=== PATIENT | female | born 1935 | race Caucasian/White ===

== ENCOUNTER → 2018-05-04 16:48 | Outpatient (CLI) | payer MEDICARE, OTHER, SELFPAY ==
[2018-05-04 17:46] LABS: Add Manual Diff / Slide Review NO; Basophils Percent Auto 0.9 % (0-2); Eosinophils Percent Auto 2.2 % (2-4); Hematocrit 30.4 % (36-46); Hemoglobin 10.1 g/dL (12.0-16.0); Lymphocytes Percent Auto 33.6 % (25-40); Mean Corpuscular HGB Conc 33.3 % (30-36); Mean Corpuscular Hemoglobin 29.3 PG (26-34); Mean Corpuscular Volume 88.2 fL (80-100); Monocytes Percent Auto 11.1 % (3-14); Neutrophils Absolute Auto 2300 /uL (3000-5900); Neutrophils Percent Auto 52.2 % (50-75); Platelet Count 169 X10^3/uL (150-400); Red Blood Cell Count 3.44 X10^6/uL (4.0-5.2); Red Cell Distribution Width 14.2 % (11.6-14.8); White Blood Cell Count 4.4 X10^3/uL (4.5-11.0)
[2018-05-04 18:01] LABS: Alanine Aminotransferase 42 IU/L (9-52); Albumin 3.9 g/dL (3.5-5.0); Albumin Globulin Ratio 1.3 (1.0-2.8); Alkaline Phosphatase 44 U/L (38-126); Aspartate Aminotransferase 44 IU/L (14-36); BUN Creatinine Ratio 29.3 (6-22); Bilirubin Total 0.6 mg/dL (0.2-1.3); Blood Urea Nitrogen 44 mg/dL (7-17); Calcium 9.3 mg/dL (8.4-10.2); Carbon Dioxide 24 mmol/L (22-32); Chloride 105 mmol/L (98-107); Estimated Glomerular Filt Rate 33.2 mL/min (>60); Globulin 2.9 g/dL (1.7-4.1); Glucose 108 mg/dL (80-110); HEMOLYSIS < 15 (0-50); Potassium 4.6 mmol/L (3.4-5.1); Sodium 143 mmol/L (137-145); Total Protein 6.8 g/dL (6.3-8.2)
[2018-05-04 18:31] LABS: Thyroid Stimulating Hormone 2.47 uIU/mL (0.47-4.68)
[2018-05-09 08:28] LABS: ANA Screen NEGATIVE (Negative); DNA Antibody Crithidia IFA NEGATIVE (Negative); Rheumatoid Factor <14 IU/mL; Sjogren Antiboday SS-A <1.0 NEG AI (<1.0 NEGATIVE); Sjogren Antiboday SS-B <1.0 NEG AI (<1.0 NEGATIVE); Sm Antibody <1.0 NEG AI (<1.0 NEGATIVE); Sm/RNP Antibody <1.0 NEG AI (<1.0 NEGATIVE)
== END ==
PROVIDERS: PCP Family Medicine; Visit Provider Student in an Organized Health Care Education/Training Program
DX: N05.9 Unspecified nephritic syndrome with unspecified morphologic changes (principal); D63.1 Anemia in chronic kidney disease; E78.2 Mixed hyperlipidemia; I10 Essential (primary) hypertension; N18.3 Chronic kidney disease, stage 3 (moderate)
CPT/HCPCS: 36415; 80053; 84443; 85025; 86038; 86430

== ENCOUNTER → 2018-05-08 11:21 | Outpatient (CLI) | payer MEDICARE, OTHER, SELFPAY ==
[2018-05-08 12:40] LABS: Cholesterol 122 mg/dL (140-199); HDL Cholesterol 49 mg/dL (40-60); LDL Cholesterol Calculated 58 mg/dL (<100); Triglycerides 76 mg/dL (35-150)
== END ==
PROVIDERS: PCP Family Medicine; Visit Provider Family Medicine
DX: D63.1 Anemia in chronic kidney disease (principal); N18.3 Chronic kidney disease, stage 3 (moderate); I10 Essential (primary) hypertension; E78.2 Mixed hyperlipidemia
CPT/HCPCS: 36415; 80061

== ENCOUNTER → 2018-05-15 16:06 | Outpatient (CLI) | payer MEDICARE, OTHER, SELFPAY ==
--- NOTE | 2018-05-15 | DI.RAD.S_ITS ---
PROCEDURE: XR RIBS RT 2V INDICATIONS: RIGHT RIB PAIN TECHNIQUE: 2 views of the right ribs were acquired. COMPARISON: [facility], CHEST 2 VIEW, 11/19/2013, 13:06. [facility], CHEST 1 VIEW, 04/26/2015, 3:58. FINDINGS: Surgical changes and devices: None. Bones and chest wall: No fractures or dislocations. No suspicious bony lesions. Overlying soft tissues appear unremarkable. Note is made of moderate degenerative disc disease with osteophytic spurring along the middle third of the thoracic spine. No subluxation is found. No compression fracture is seen. The visualized rib margins appear free of traumatic disruption or osteolytic/osteoblastic change. Lungs and pleura: The visualized lung appears clear. No pleural effusions or pneumothorax are visible. IMPRESSION: Source of current right-sided rib pain is not seen. Depending on the clinical status followup by a nuclear medicine bone scan may become necessary. Dictated by: Maykel Jones M.D. on 05/15/2018 at 17:09 Approved by: Maykel Jones M.D. on 05/15/2018 at 17:11
--- NOTE | 2018-05-15 16:09 | DI.RAD.S_ITS ---
PROCEDURE: XR THORACIC SPINE 3V INDICATIONS: Thoracic pain, R Rib pain TECHNIQUE: 3 views of the thoracic spine were acquired. COMPARISON: [facility], MR, T-SPINE W&WO CONTRAST, 04/27/2016, 18:14. [facility], CR, CHEST 2 VIEW, 11/19/2013, 13:06. [facility], CR, CHEST 1 VIEW, 04/26/2015, 3:58. FINDINGS: Bones: No fractures or dislocations. No suspicious bony lesions. 12 pairs of ribs are noted, and appear intact where visualized. Moderate degenerative mid thoracic disc disease with anterior osteophyte formation is present, similar to that previously present. No subluxation has developed. Soft tissues: No paravertebral stripe thickening. IMPRESSION: No trauma found. Moderate midthoracic degenerative disc disease previously present with reference to prior MR of the thoracic spine and chest plain film imaging. Dictated by: Maykel Jones M.D. on 05/15/2018 at 17:01 Approved by: Maykel Jones M.D. on 05/15/2018 at 17:09
== END ==
PROVIDERS: PCP Family Medicine; Visit Provider Family Medicine
DX: M51.34 Other intervertebral disc degeneration, thoracic region (principal); R07.81 Pleurodynia
CPT/HCPCS: 71100; 72072

== ENCOUNTER → 2018-06-22 14:54 | Outpatient (CLI) | payer MEDICARE, OTHER, SELFPAY ==
[2018-06-22 15:20] LABS: Hematocrit 29.4 % (36-46)
[2018-06-22 16:10] LABS: TSH w/ Reflex to FT4 1.56 uIU/mL (0.47-4.68)
[2018-06-22 16:23] LABS: Vitamin D 25 Hydroxy (D3) 41.6 ng/mL (30.0-100.0)
[2018-06-22 16:29] LABS: Vitamin B12 736 pg/mL (239-931)
== END ==
PROVIDERS: PCP Family Medicine
DX: D64.9 Anemia, unspecified (principal); E55.9 Vitamin D deficiency, unspecified
CPT/HCPCS: 36415; 82306; 82607; 84443; 85014; 85018

== ENCOUNTER → 2018-06-29 14:29 | Outpatient (CLI) | payer MEDICARE, OTHER, SELFPAY ==
[2018-06-29 15:19] LABS: Reticulocyte Count, Percent 1.2 % (1.06-2.63)
[2018-06-29 16:02] LABS: HEMOLYSIS < 15 (0-50); Iron 64 ug/dL (37-170)
[2018-06-29 16:13] LABS: Percent Iron Saturation 20 % (15-50); Total Iron Binding Capacity 327 ug/dL (265-497); Transferrin 265 mg/dL (206-381)
[2018-07-01 14:05] LABS: Erythropoietin 9.7 mIU/mL (2.6-18.5)
[2018-07-01 19:15] LABS: Albumin 3.9 g/dL (3.8-4.8); Alpha 1 Globulin 0.3 g/dL (0.2-0.3); Alpha 2 Globulin 0.5 g/dL (0.5-0.9); Beta 1 Globulin 0.4 g/dL (0.4-0.6); Gamma Globulin 1.2 g/dL (0.8-1.7); Protein, Total 6.6 g/dL (6.1-8.1)
[2018-07-04 23:21] LABS: Albumin 80 %; Protein/ Creatinine Ratio 139 mg/g creat (21-161); Total Urine Protein 16 mg/dL (5-24); Urine Creatinine, Random 115 mg/dL (20-320)
== END ==
PROVIDERS: PCP Family Medicine
DX: N18.9 Chronic kidney disease, unspecified (principal); D63.1 Anemia in chronic kidney disease
CPT/HCPCS: 36415; 82668; 82728; 83540; 83550; 84155; 84156; 84165; 84166; 85045; 86335

== ENCOUNTER → 2018-07-19 14:14 | Outpatient (CLI) | payer MEDICARE, OTHER, SELFPAY ==
[2018-07-19 15:06] LABS: Add Manual Diff / Slide Review NO; Hematocrit 29.5 % (36-46); Hemoglobin 9.9 g/dL (12.0-16.0); Lymphocytes Percent Auto 32.9 % (25-40); Mean Corpuscular HGB Conc 33.6 % (30-36); Mean Corpuscular Hemoglobin 29.7 PG (26-34); Mean Corpuscular Volume 88.3 fL (80-100); Monocytes Percent Auto 12.2 % (3-14); Neutrophils Absolute Auto 2000 /uL (3000-5900); Neutrophils Percent Auto 51.9 % (50-75); Platelet Count 187 X10^3/uL (150-400); Red Blood Cell Count 3.34 X10^6/uL (4.0-5.2); Red Cell Distribution Width 15.3 % (11.6-14.8); White Blood Cell Count 3.9 X10^3/uL (4.5-11.0)
== END ==
PROVIDERS: PCP Family Medicine
DX: N18.9 Chronic kidney disease, unspecified (principal); D63.1 Anemia in chronic kidney disease
CPT/HCPCS: 36415; 85025

== ENCOUNTER 2018-07-26 11:12 | Outpatient (CLI) | payer MEDICARE, OTHER, SELFPAY ==
[2018-07-26] VITALS (8 sets, daily range): BP systolic 136–203; BP diastolic 59–91; PULSE 61–65; RESP 10–19; TEMP 36.8; O2SAT 99–100
--- NOTE | 2018-07-26 11:14 | DI.RAD.S_ITS ---
PROCEDURE: PAIN C/T INTERLAMINAR INJECT INDICATIONS: PAIN IN THORACIC SPINE FINDINGS: Fluoroscopic spot filming was performed to verify placement of spinal needles at the T8-T9 paramedian interlaminar level(s), as labeled on the films. Appropriate location(s) of the needle tip(s) was confirmed by injection of iodinated contrast. IMPRESSION: Successful needle tip localization within the dorsal epidural space for epidural steroid injection. Dictated by: Maykel Jones M.D. on 07/26/2018 at 14:09 Approved by: Maykel Jones M.D. on 07/26/2018 at 14:09
--- NOTE | 2018-07-26 11:32 | PM.PROC.1 ---
Procedures Date/Time Date of procedure: 07/26/18 Time of procedure: 11:32 General Procedure description: Preop diagnosis: Thoracic stenosis with HNP Postprocedure diagnosis: Thoracic stenosis with HNP Physician: Lex Malone D.O. Indications: Margaux is referred by Dr. Herrera for treatment of thoracic DDD/DJD with radiculopathy Description of procedure: Fluoroscopic guided, contrast controlled T8-9 translaminar epidural steroid injection with conscious sedation. Following denial of allergy review potential side effects and complications, including, but not necessarily limited to, infection, allergic reaction, local tissue breakdown, temporary as well as permanent nerve injury, stroke, paralysis and possible , the patient indicated that they understood and agreed to proceed. An informed consent document was signed by the patient, witnessed by the nurse, and placed in the patient's chart. Additionally other treatment options including modalities, medications and physical therapy were reviewed with the patient. After review of previous anaesthesic history and IV conscious sedation the patient was deemed safe to proceed with todays procedure with IV conscious sedation as ASA class II designation. Safety time-out was performed to confirm patient ID, procedure to be performed and site of procedure. IV sedation was accomplished with a combination of 3mg of Versed administered by the RN after DO order, titrated to patient comfort during the course of the procedure while the patient remained responsive to all verbal commands In the prone position, following sterile prep and drape of the thoracic region the T8-9 translaminar space was identified fluoroscopically. The skin was anesthetized via 25 gauge 20 mm sheath with 1% lidocaine solution. At this point a 20 gauge epidural needle was atraumatically introduced and advanced under fluoroscopic guidance into the region of the T8-9 translaminar space depth was confirmed on lateral view. Radiographic data, including multiple fluoroscopic views of the thoracic spine, reveals spinal needle at the T8-9 translaminar space. Lateral views then showed the placement of the needle in the epidural space. Subsequent view show contrast material flowing superiorly and inferiorly in the epidural space. No vascular or intrathecal uptake is observed. At this point using loss of resistance technique with saline and the epidural space was entered. This was confirmed followed negative aspiration and injection of approximately 1.5 cc of Isovue 200 showed excellent epidural flow without vascular or intrathecal uptake. At this point, 1 cc of 1% lidocaine solution was admitted as a test dose and the patient was observed for an appropriate period of time without signs or symptoms of complications, including abdominal pain, shortness of breath, bilateral upper and lower extremity weakness, nausea and vomiting, prior to steroid injection. Subsequently, 3 cc or 30 mg of dexamethasone was then injected without incident. The patient tolerated the procedure well without signs of complications and subsequently was transferred to the recovery room for further monitoring. The patient was then transferred to the recovery area with their observed for an appropriate time after the injection. Patient reported a VAS score of 7 prior to the procedure and postprocedure VAS of 2. Total fluoroscopy time: 56.3 sec Total conscious sedation time: 24 min Lex Malone D.O. Complications: none
[2018-07-26] MEDS: DEXAMETHASONE 10 MG/ML VIAL 30 MG INJ (12:06)
[2018-07-26] MEDS: MIDAZOLAM 5 MG/5 ML VIAL IV (12:06)
[2018-07-26] MEDS: IOPAMIDOL 15 ML VIAL 3 ML INJ (12:06)
[2018-07-26] MEDS: LIDOCAINE 1% 20 ML INJ 5 ML INJ (12:07)
== END 2018-07-26 13:05 | disposition home or self-care (01) ==
LOC: RAD 11:13
PROVIDERS: PCP Family Medicine; Visit Provider Physical Medicine & Rehabilitation
DX: M51.14 Intervertebral disc disorders with radiculopathy, thoracic region (principal); M47.24 Other spondylosis with radiculopathy, thoracic region; M48.04 Spinal stenosis, thoracic region; G89.29 Other chronic pain
CPT/HCPCS: 62321; 99152; J1100; J2250

== ENCOUNTER → 2018-08-11 16:04 | Outpatient (CLI) | payer MEDICARE, OTHER, SELFPAY ==
[2018-08-11 17:19] LABS: Hemoglobin 10.6 g/dL (12.0-16.0)
[2018-08-11 17:53] LABS: HEMOLYSIS < 15 (0-50); Iron 79 ug/dL (37-170)
[2018-08-11 17:54] LABS: Blood Urea Nitrogen 36 mg/dL (7-17); Calcium 9.2 mg/dL (8.4-10.2); Carbon Dioxide 26 mmol/L (22-32); Chloride 106 mmol/L (98-107); Estimated Glomerular Filt Rate 26.9 mL/min (>60); Glucose 83 mg/dL (80-110); HEMOLYSIS < 15 (0-50); Sodium 143 mmol/L (137-145)
[2018-08-11 18:04] LABS: Percent Iron Saturation 24 % (15-50); Total Iron Binding Capacity 330 ug/dL (265-497); Transferrin 269 mg/dL (206-381)
[2018-08-11 18:45] LABS: Creatinine Urine Random 140.3 mg/dL; Protein (Total) Urine Random 26 mg/dL (0-12); Protein Creatinine Ratio Urine 0.18 GRAM/24H
[2018-08-15 15:18] LABS: Parathyroid Hormone Int 113 pg/mL (14-64)
== END ==
PROVIDERS: PCP Family Medicine; Visit Provider Student in an Organized Health Care Education/Training Program
DX: N05.9 Unspecified nephritic syndrome with unspecified morphologic changes (principal); D50.0 Iron deficiency anemia secondary to blood loss (chronic); D64.9 Anemia, unspecified; N25.81 Secondary hyperparathyroidism of renal origin; R80.9 Proteinuria, unspecified
CPT/HCPCS: 36415; 80048; 82570; 82728; 83540; 83550; 83970; 84156; 85014; 85018

== ENCOUNTER → 2018-08-16 14:10 | Outpatient (CLI) | payer MEDICARE, OTHER, SELFPAY ==
[2018-08-16 14:22] LABS: Add Manual Diff / Slide Review NO; Eosinophils Percent Auto 1.8 % (2-4); Hematocrit 29.4 % (36-46); Lymphocytes Percent Auto 33.8 % (25-40); Mean Corpuscular HGB Conc 33.8 % (30-36); Mean Corpuscular Hemoglobin 29.7 PG (26-34); Mean Corpuscular Volume 87.7 fL (80-100); Monocytes Percent Auto 12.4 % (3-14); Neutrophils Absolute Auto 2000 /uL (3000-5900); Platelet Count 176 X10^3/uL (150-400); Red Blood Cell Count 3.35 X10^6/uL (4.0-5.2); Red Cell Distribution Width 14.7 % (11.6-14.8); White Blood Cell Count 3.9 X10^3/uL (4.5-11.0)
--- NOTE | 2018-08-16 15:27 | PC.NURSE ---
Pt here for lab draw due to anemia. Current labs are stable at this time, next draw is 09/13 for an 09/20 provider visit
== END ==
PROVIDERS: PCP Family Medicine
DX: N18.3 Chronic kidney disease, stage 3 (moderate) (principal); D63.1 Anemia in chronic kidney disease
CPT/HCPCS: 36415; 85025

== ENCOUNTER → 2018-08-31 18:35 | Outpatient (CLI) | payer MEDICARE, OTHER, SELFPAY ==
--- NOTE | 2018-08-31 18:37 | DI.MRI.S_ITS ---
PROCEDURE: MR THORACIC SPINE WO CON INDICATIONS: THORACIC BACK PAIN TECHNIQUE: Noncontrast sagittal T1 spine echo and T2 fast spin echo, sagittal STIR, axial T1 and T2 fast spin echo through the thoracic spine. COMPARISON: [facility], MR, L-SPINE WITHOUT CONTRAST, 03/25/2016, 9:07. [facility], MR, T-SPINE W&WO CONTRAST, 04/27/2016, 18:14. FINDINGS: Image quality: Excellent. Alignment and Curvature: There is normal bony alignment. Bone Marrow: Marrow is of normal overall signal. No acute vertebral body compression fractures. Spinal Cord: Visualized spinal cord is normal in size. As previously identified, there is increased T2 signal within the distal aspect of the visualized cord without interval change. Paraspinous Soft Tissues: No paravertebral masses. Lobulated T2 hyperintensities are present along the superior right renal pole, unchanged likely office services representative of cysts. Miscellaneous: On axial images, foramina appear widely patent at all scanned levels. Multilevel disc desiccation is present throughout the thoracic spine. Minimal disc bulges are present at T6-7, T7-8, T8-9 and, T9-10, T10-11, T12-L1. Minimal interval progression. IMPRESSION: 1. Minimal degenerative changes with slight interval progression as above. 2. 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 Dictated by: Angela Evangelista M.D. on 09/01/2018 at 13:30 Approved by: Angela Evangelista M.D. on 09/01/2018 at 14:39
== END ==
PROVIDERS: PCP Family Medicine; Visit Provider Physical Medicine & Rehabilitation
DX: M54.6 Pain in thoracic spine (principal); G89.29 Other chronic pain; M47.24 Other spondylosis with radiculopathy, thoracic region
CPT/HCPCS: 72146

== ENCOUNTER → 2018-09-14 15:29 | Outpatient (CLI) | payer MEDICARE, OTHER, SELFPAY ==
[2018-09-14 15:48] LABS: Add Manual Diff / Slide Review NO; Basophils Percent Auto 0.5 % (0-2); Eosinophils Percent Auto 1.7 % (2-4); Hemoglobin 9.6 g/dL (12.0-16.0); Lymphocytes Percent Auto 31.3 % (25-40); Mean Corpuscular HGB Conc 33.1 % (30-36); Mean Corpuscular Hemoglobin 29.4 PG (26-34); Mean Corpuscular Volume 88.7 fL (80-100); Monocytes Percent Auto 11.4 % (3-14); Neutrophils Absolute Auto 2400 /uL (3000-5900); Neutrophils Percent Auto 55.1 % (50-75); Platelet Count 179 X10^3/uL (150-400); Red Blood Cell Count 3.28 X10^6/uL (4.0-5.2); Red Cell Distribution Width 14.6 % (11.6-14.8); White Blood Cell Count 4.3 X10^3/uL (4.5-11.0)
== END ==
PROVIDERS: PCP Family Medicine
DX: N18.3 Chronic kidney disease, stage 3 (moderate) (principal); D63.1 Anemia in chronic kidney disease
CPT/HCPCS: 36415; 85025

== ENCOUNTER → 2018-09-20 15:18 | Outpatient (CLI) | payer MEDICARE, OTHER, SELFPAY ==
[2018-09-20 16:34] LABS: BUN Creatinine Ratio 26.7 (6-22); Blood Urea Nitrogen 48 mg/dL (7-17); Calcium 8.9 mg/dL (8.4-10.2); Carbon Dioxide 26 mmol/L (22-32); Chloride 106 mmol/L (98-107); Estimated Glomerular Filt Rate 26.9 mL/min (>60); Glucose 130 mg/dL (80-110); HEMOLYSIS < 15 (0-50); Potassium 4.5 mmol/L (3.4-5.1); Sodium 142 mmol/L (137-145)
== END ==
PROVIDERS: PCP Family Medicine; Visit Provider Student in an Organized Health Care Education/Training Program
DX: N05.9 Unspecified nephritic syndrome with unspecified morphologic changes (principal)
CPT/HCPCS: 36415; 80048

== ENCOUNTER → 2018-10-04 14:31 | Outpatient (CLI) | payer MEDICARE, OTHER, SELFPAY ==
[2018-10-04 14:58] LABS: Add Manual Diff / Slide Review NO; Eosinophils Percent Auto 2.4 % (2-4); Hematocrit 32.1 % (36-46); Hemoglobin 10.6 g/dL (12.0-16.0); Mean Corpuscular Hemoglobin 29.9 PG (26-34); Mean Corpuscular Volume 90.7 fL (80-100); Monocytes Percent Auto 11.7 % (3-14); Neutrophils Absolute Auto 2000 /uL (3000-5900); Neutrophils Percent Auto 47.9 % (50-75); Platelet Count 178 X10^3/uL (150-400); Red Blood Cell Count 3.54 X10^6/uL (4.0-5.2); Red Cell Distribution Width 15.7 % (11.6-14.8); White Blood Cell Count 4.2 X10^3/uL (4.5-11.0)
[2018-10-04] MEDS: DARBEPOETIN 60 MCG/0.3 ML SYRINGE SUBCUT (15:22)
--- NOTE | 2018-10-04 15:25 | PC.NURSE ---
Triage note: noted high blood pressure. Pt states Dr Goode reduced the dose of her carvedilol couple weeks ago. Called Dr Goode's office and left message asking for nurse to call me back regarding this patient. Explained calling to report high blood pressure values.
[2018-10-04 15:28] VITALS: BP 177/76; PULSE 60; RESP 16; TEMP 36.9; O2SAT 99
--- NOTE | 2018-10-04 15:31 | PC.NURSE ---
Patients systolic elevated at 177/76. Patient is on carvedilol which she informs was reduced about 3 weeks ago to 6.25mg BID from 12.5mg BID and she was instructed to return for a FU visit in 3 months. Triage nr.giulia will inform her prescribing exhauster.
== END ==
PROVIDERS: PCP Family Medicine
DX: N18.3 Chronic kidney disease, stage 3 (moderate) (principal); D63.1 Anemia in chronic kidney disease; Z79.82 Long term (current) use of aspirin
CPT/HCPCS: 85025; 96372; J0881

== ENCOUNTER → 2018-10-18 14:31 | Outpatient (CLI) | payer MEDICARE, OTHER, SELFPAY ==
[2018-10-18 14:54] LABS: Add Manual Diff / Slide Review NO; Eosinophils Percent Auto 1.9 % (2-4); Hemoglobin 11.8 g/dL (12.0-16.0); Lymphocytes Percent Auto 33.2 % (25-40); Mean Corpuscular HGB Conc 32.8 % (30-36); Mean Corpuscular Hemoglobin 29.5 PG (26-34); Mean Corpuscular Volume 89.8 fL (80-100); Monocytes Percent Auto 10.2 % (3-14); Neutrophils Absolute Auto 2800 /uL (3000-5900); Neutrophils Percent Auto 53.7 % (50-75); Platelet Count 193 X10^3/uL (150-400); Red Blood Cell Count 4.01 X10^6/uL (4.0-5.2); Red Cell Distribution Width 14.8 % (11.6-14.8); White Blood Cell Count 5.3 X10^3/uL (4.5-11.0)
[2018-10-18 15:04] VITALS: BP 165/88; PULSE 65; RESP 17; TEMP 36.8; O2SAT 97
--- NOTE | 2018-10-23 15:19 | PC.NURSE ---
Pt presented to [facility], asking for the triage nurse to come check her arm out. Pt pointed out that she has a left upper arm pulsating thing. She pointed to her left brachial artery. Noted that you could see pulse. Pt states it's never done that before. I showed my daughter and we both are really alarmed. Noted vessel to feel cord like. No redness noted. Appears to be more pronounced than right brachial artery. Pt reports tenderness upon palpation. Explained to pt that this is an issue that should be evaluated by her PCP Dr Herrera. Pt requested that I place a call to Dr Herrera and report my findings and try to get her in to see her. Spoke with Dr Herrera's nurse who advised pt to just come in through walk in clinic. Instructed pt to do so and she said she'll go right over there.
== END ==
PROVIDERS: PCP Family Medicine
DX: N18.3 Chronic kidney disease, stage 3 (moderate) (principal); D63.1 Anemia in chronic kidney disease
CPT/HCPCS: 85025

== ENCOUNTER → 2018-10-24 12:34 | Outpatient (CLI) | payer MEDICARE, OTHER, SELFPAY ==
--- NOTE | 2018-10-24 12:37 | DI.US.S_ITS ---
PROCEDURE: US EXTREMITY NONVASC UPPER LT INDICATIONS: PULSING AT AREA OF RECENT BLOOD DRAW TECHNIQUE: Real-time scanning was performed of the left upper extremity, with image documentation. COMPARISON: None. FINDINGS: Targeted sonographic imaging was performed at the site of the recent blood draw a region along the anterior margin of the left lower arm within the antecubital fossa. No hematoma, drainable fluid collection, or pseudoaneurysm is identified within this region. The imaged venous structures are widely patent without intraluminal thrombus. No soft tissue masses are evident. IMPRESSION: No abnormality is identified to correlate with the patient's area of pulsation involving the antecubital region of the left upper arm. There is no pseudoaneurysm, hematoma, or drainable fluid collection. Dictated by: Ryan Galvin M.D. on 10/24/2018 at 14:42 Approved by: Ryan Galvin M.D. on 10/24/2018 at 14:44
== END ==
PROVIDERS: PCP Family Medicine; Visit Provider Physician Assistant
DX: S45.102A Unspecified injury of brachial artery, left side, initial encounter (principal)
CPT/HCPCS: 76882

== ENCOUNTER → 2018-11-16 14:14 | Outpatient (CLI) | payer MEDICARE, OTHER, SELFPAY ==
[2018-11-16 14:35] LABS: Add Manual Diff / Slide Review NO; Basophils Percent Auto 0.8 % (0-2); Eosinophils Percent Auto 2.9 % (2-4); Hematocrit 34.7 % (36-46); Hemoglobin 11.4 g/dL (12.0-16.0); Lymphocytes Percent Auto 35.5 % (25-40); Mean Corpuscular HGB Conc 32.9 % (30-36); Mean Corpuscular Hemoglobin 29.6 PG (26-34); Mean Corpuscular Volume 90.1 fL (80-100); Monocytes Percent Auto 10.4 % (3-14); Neutrophils Absolute Auto 1700 /uL (1500-7000); Neutrophils Percent Auto 50.4 % (50-75); Platelet Count 153 X10^3/uL (150-400); Red Blood Cell Count 3.85 X10^6/uL (4.0-5.2); Red Cell Distribution Width 15.5 % (11.6-14.8); White Blood Cell Count 3.4 X10^3/uL (4.5-11.0)
[2018-11-16 15:02] VITALS: BP 172/89; PULSE 60; RESP 22; TEMP 36.8; O2SAT 98
--- NOTE | 2018-11-16 16:45 | P.PNONC_ITS ---
PN -Subjective Interval history: The patient is an 83-year-old female who returns today for routine follow-up. She carries a diagnosis of anemia due to stage 3 chronic kidney disease. Previous visit September 20, [address] Rodríguez. He initiated treatment with EPO injections 60mcg every other week with a goal HGB of 11-12. She has been also having her CBC checked every 2 weeks. Since initiating the injection patient states ?I feel pretty much the same?. May be a little more energy however ?not as much as I hoped for?. Shortness of breath is unchanged. She denies shortness of breath at rest or when in bed admits to shortness of breath with just a little bit of walking I used to do a lot of walking. No worsening of symptoms. No unexplained bleeding or bruising. No dizziness or lightheadedness. Patient feels as though she is tolerating the injections without adverse effects. Other medications include aspirin, carvedilol, fenofibrate, iron, multivitamin. Pt is under the care of cardiology Dr Quinn whom she sees annually, she is due for an upcoming appointment. She reports I have had a stress test and echocardiogram. She is also under the care of a lung doctor but I have been told my lungs are ok. She sees this doctor annually, next appointment is Dec 2018. - Patient Self-Reported Symptoms SR Constitution: Night Sweats SR respiratory issues: Shortness of breath SR Cardiovascular issues: Shortness of breath with activity or lying flat SR Gastrointestinal issues: Diarrhea SR Genitourinary issues: Incontinence SR Musculoskeletal issues: Muscle pain or cramps, Difficulty walking SR Neuro issues: Difficulty balancing Home Medications and Allergies Home Medications Medication Instructions Recorded Confirmed Type Vitamin E (VITAMIN E) 400 units PO QDAY #0 04/17/13 10/27/18 History cyanocobalamin (vitamin B-12) 1,000 mcg PO QDAY #0 07/07/16 10/27/18 History ferrous gluconate 236 mg PO QAM #0 09/08/16 10/27/18 History [PAPAYA ENZYME] 3 tab PO QAM PRN #0 05/18/18 10/27/18 History ascorbate calcium-bioflavonoid 2 tab PO QAM 06/28/18 10/27/18 History [Heather-C with Bioflavonoids] carvedilol 12.5 mg tablet 6.25 mg PO BID tab 08/24/18 10/27/18 History oxycodone-acetaminophen 7.5 mg-325 1 tab PO Q8H PRN #90 tab 10/10/18 10/27/18 Rx mg tablet fenofibrate 160 mg tablet 160 mg PO HS #90 tab 10/17/18 10/27/18 Rx [CALCIUM/MAG/POTAS.] 1 tab PO QDAY #0 10/27/18 10/27/18 History aspirin 81 mg tablet,delayed 81 mg PO .COMPLEX tab 10/27/18 10/27/18 History release cholecalciferol (vitamin D3) 2,000 6,000 unit PO DAILY cap 10/27/18 10/27/18 History unit capsule gabapentin 300 mg capsule 300 mg PO TID #90 cap 10/27/18 Rx multivitamin tablet 1 tab PO QDAY #0 tab 10/27/18 10/27/18 History Allergies Allergy/AdvReac Type Severity Reaction Status Date / Time belladonna alkaloids Allergy Severe severe Verified 10/27/18 16:00 [From BELLERGAL-S] swelling and itching ergotamine [From BELLERGAL-S] Allergy Severe severe Verified 10/27/18 16:00 swelling and itching phenobarbital Allergy Severe severe Verified 10/27/18 16:00 [From BELLERGAL-S] swelling and itching shellfish derived AdvReac Severe ill, n/v Verified 10/27/18 16:00 [SHELLFISH DERIVED] Exam - Constitutional positive no acute distress - Routine HEENT Exam Eye: Present: conjunctivae pink. Absent: conjunctival icterus, scleral injection ENT: Present: mucous membranes moist, oropharynx clear - Routine Neck Exam Present: supple. Absent: lymphadenopathy - Routine Respiratory Exam Present: Clear to auscultation bilaterally. Absent: rales, rhonchi, wheezes - Routine Cardiovascular Exam Present: RRR, S1, S2. Absent: murmur, gallop, rubs, JVD - Routine Abdominal Exam Present: soft, normoactive bowel sounds. Absent: tenderness, distended, organomegaly - Routine Extremities Exam Absent: edema, calf tenderness - Routine Skin Exam Present: intact, normal turgor. Absent: petechiae, rash - Routine Neurological Exam Present: alert, oriented X3 - Routine Psychiatric Exam Present: normal affect Results - Labs Laboratory Last Values WBC 3.4 X10^3/uL (4.5-11.0) L 11/16/18 14:21 RBC 3.85 X10^6/uL (4.0-5.2) L 11/16/18 14:21 Hgb 11.4 g/dL (12.0-16.0) L 11/16/18 14:21 Hct 34.7 % (36-46) L 11/16/18 14:21 MCV 90.1 fL (80-100) 11/16/18 14:21 MCH 29.6 PG (26-34) 11/16/18 14:21 MCHC 32.9 % (30-36) 11/16/18 14:21 RDW 15.5 % (11.6-14.8) H 11/16/18 14:21 Plt Count 153 X10^3/uL (150-400) 11/16/18 14:21 Neut % (Auto) 50.4 % (50-75) 11/16/18 14:21 Lymph % (Auto) 35.5 % (25-40) 11/16/18 14:21 [place] % (Auto) 10.4 % (3-14) 11/16/18 14:21 Eos % (Auto) 2.9 % (2-4) 11/16/18 14:21 Baso % (Auto) 0.8 % (0-2) 11/16/18 14:21 Neut # (Auto) 1700 /uL ([id number]) 11/16/18 14:21 - Imaging Additional studies: Procedures Repair of entropion or ectropion with lid reconstruction (06/27/13) Assessment and Plan (1) Anemia in stage 3 chronic kidney disease Problem details: 83-year-old woman with renal insufficiency and a moderate normocytic anemia. Her red cell count has fallen somewhat since her last visit and she has had increasing symptoms of dyspnea on exertion. I think it is likely that she would benefit from EPO replacement. This would hopefully increase her hemoglobin improve her oxygen carrying capacity and decrease her dyspnea exertion and improve her quality of life. We will plan on starting Aranesp 60 mcg every other week with a goal hemoglobin of 11 to 12. She will return to clinic in about 6-8 weeks for follow-up. Current visit: No Status : Chronic 83-year-old female who is being seen in this clinic for a diagnosis of stage 3 chronic kidney disease with anemia. Now receiving EPO injections every other week 60 mcg. Today on exam her hemoglobin is 11.4 hematocrit is 34.7. Patient reports she is feeling marginally better since initiating EPO injections. Noting hemoglobin is greater than 11 we will not administer EPO today. I will have the patient return to clinic in 2 weeks [address] to see Dr Rodríguez we will also check a cbc if indicated she will receive EPO. Pt verbalizes understanding. I have requested notes from her cardiology visit with Dr Quinn also her echocardiogram. 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
== END ==
PROVIDERS: PCP Family Medicine; Visit Provider Nurse Practitioner Gerontology
DX: N18.3 Chronic kidney disease, stage 3 (moderate) (principal); D63.1 Anemia in chronic kidney disease
CPT/HCPCS: 36415; 85025; 99214

== ENCOUNTER → 2018-11-24 15:34 | Outpatient (CLI) | payer MEDICARE, OTHER, SELFPAY ==
--- NOTE | 2018-11-24 16:44 | DI.US.S_ITS ---
PROCEDURE: US ARTERIAL DUPLEX UE LT COMPARISON: None. INDICATIONS: Pulsing of brachial artery post blood draw FINDINGS: Not visualized pseudo-aneurysm or hematoma. Left subclavian artery: 60 cm/s Left axillary artery 136 cm/s Left mid brachial artery: 140 cm/s Left distal brachial artery: 151 cm/s Left distal radial artery 78 cm/s Left distal ulnar artery 70 cm/s. All vessels have triphasic flow with the exception of biphasic flow noted in the axillary and distal arteries. IMPRESSION: No visualized pseudoaneurysm or other vascular abnormality. Dictated by: Angela Evangelista M.D. on 11/24/2018 at 17:40 Approved by: Angela Evangelista M.D. on 11/24/2018 at 17:42
== END ==
PROVIDERS: PCP Family Medicine; Visit Provider Physician Assistant
DX: S45.102A Unspecified injury of brachial artery, left side, initial encounter (principal)
CPT/HCPCS: 93931

== ENCOUNTER 2018-11-28 10:24 | Outpatient (CLI) | payer MEDICARE, OTHER, SELFPAY ==
[2018-11-28] VITALS (7 sets, daily range): BP systolic 184–201; BP diastolic 62–91; PULSE 63–81; RESP 15–18; TEMP 36.5; O2SAT 96–100
--- NOTE | 2018-11-28 | DI.RAD.S_ITS ---
PROCEDURE: PAIN C/T INTERLAMINAR INJECT INDICATIONS: SPONDYLOSIS FINDINGS: Fluoroscopic spot filming was performed to verify placement of spinal needles at the T12-L1 interlaminar dorsal epidural level(s), as labeled on the films. Appropriate location(s) of the needle tip(s) was confirmed by injection of iodinated contrast. IMPRESSION: Successful needle tip localization for T12-L1 translaminar epidural steroid injection. Dictated by: Maykel Jones M.D. on 11/28/2018 at 13:37 Approved by: Maykel Jones M.D. on 11/28/2018 at 13:38
[2018-11-28] MEDS: MIDAZOLAM 5 MG/5 ML VIAL IV (11:25)
--- NOTE | 2018-11-28 11:38 | PC.NURSE ---
pt tolerated procedure well. Dr. Malone aware of pt's elevated blood pressure. Able to get pt off table with minimal assist. Transferred pt to pre procedure room via wheelchair for continued monitoring with Dorinda SANDERSON.
--- NOTE | 2018-11-28 11:52 | PC.NURSE ---
ACCEPTED CARE OF PT IN POST PROC AREA. PT IN STABLE CONDITION
[2018-11-28] MEDS: IOPAMIDOL 15 ML VIAL 3 ML INJ (11:53)
[2018-11-28] MEDS: DEXAMETHASONE 10 MG/ML VIAL 30 MG INJ (11:53)
--- NOTE | 2018-11-28 11:54 | PM.PROC.1 ---
Procedures Date/Time Date of procedure: 11/28/18 Time of procedure: 11:54 General Procedure description: Preop diagnosis: Thoracic stenosis with HNP Postprocedure diagnosis: Thoracic stenosis with HNP Physician: Lex Malone D.O. Indications: Margaux is referred by Dr. Herrera for treatment of thoracic DDD/DJD with radiculopathy Description of procedure: Fluoroscopic guided, contrast controlled T12/L1 translaminar epidural steroid injection with conscious sedation. Following denial of allergy review potential side effects and complications, including, but not necessarily limited to, infection, allergic reaction, local tissue breakdown, temporary as well as permanent nerve injury, stroke, paralysis and possible , the patient indicated that they understood and agreed to proceed. An informed consent document was signed by the patient, witnessed by the nurse, and placed in the patient's chart. Additionally other treatment options including modalities, medications and physical therapy were reviewed with the patient. After review of previous anaesthesic history and IV conscious sedation the patient was deemed safe to proceed with todays procedure with IV conscious sedation as ASA class II designation. Safety time-out was performed to confirm patient ID, procedure to be performed and site of procedure. IV sedation was accomplished with a combination of 2mg of Versed administered by the RN after DO order, titrated to patient comfort during the course of the procedure while the patient remained responsive to all verbal commands In the prone position, following sterile prep and drape of the thoracic region the T12/L1 translaminar space was identified fluoroscopically. The skin was anesthetized via 25 gauge 20 mm sheath with 1% lidocaine solution. At this point a 20 gauge epidural needle was atraumatically introduced and advanced under fluoroscopic guidance into the region of the T12/L1 translaminar space depth was confirmed on lateral view. Radiographic data, including multiple fluoroscopic views of the thoracic spine, reveals spinal needle at the T12/L1 translaminar space. Lateral views then showed the placement of the needle in the epidural space. Subsequent view show contrast material flowing superiorly and inferiorly in the epidural space. No vascular or intrathecal uptake is observed. At this point using loss of resistance technique with saline and the epidural space was entered. This was confirmed followed negative aspiration and injection of approximately 1.5 cc of Isovue 200 showed excellent epidural flow without vascular or intrathecal uptake. At this point, 1 cc of 1% lidocaine solution was admitted as a test dose and the patient was observed for an appropriate period of time without signs or symptoms of complications, including abdominal pain, shortness of breath, bilateral upper and lower extremity weakness, nausea and vomiting, prior to steroid injection. Subsequently, 3 cc or 30 mg of dexamethasone was then injected without incident. The patient tolerated the procedure well without signs of complications and subsequently was transferred to the recovery room for further monitoring. The patient was then transferred to the recovery area with their observed for an appropriate time after the injection. Patient reported a VAS score of 7 prior to the procedure and postprocedure VAS of 2. Total fluoroscopy time: 56.3 sec Total conscious sedation time: 24 min Lex Malone D.O. Complications: none
--- NOTE | 2018-11-29 12:50 | PC.NURSE ---
Made Follow up call and pt doesn't have answering machine, no one picked up. So unable to contact patient.
== END 2018-11-28 12:20 | disposition home or self-care (01) ==
PROVIDERS: PCP Family Medicine; Visit Provider Physical Medicine & Rehabilitation
DX: M51.14 Intervertebral disc disorders with radiculopathy, thoracic region (principal); M47.24 Other spondylosis with radiculopathy, thoracic region
CPT/HCPCS: 62321; 99152; J1100; J2250

== ENCOUNTER → 2018-11-29 11:18 | Outpatient (CLI) | payer MEDICARE, OTHER, SELFPAY ==
[2018-11-29 11:52] LABS: Add Manual Diff / Slide Review NO; Basophils Absolute Auto 0 /uL (0-100); Basophils Percent Auto 0.5 % (0-2); Eosinophils Absolute Auto 0 /uL (0-450); Hematocrit 32.5 % (36-46); Hemoglobin 10.8 g/dL (12.0-16.0); Lymphocytes Absolute Auto 1300 /uL (1100-4500); Lymphocytes Percent Auto 15.7 % (25-40); Mean Corpuscular HGB Conc 33.2 % (30-36); Mean Corpuscular Hemoglobin 29.4 PG (26-34); Mean Corpuscular Volume 88.5 fL (80-100); Monocytes Absolute Auto 800 /uL (0-900); Neutrophils Absolute Auto 6400 /uL (1500-7000); Neutrophils Percent Auto 74.8 % (50-75); Platelet Count 167 X10^3/uL (150-400); Red Blood Cell Count 3.67 X10^6/uL (4.0-5.2); Red Cell Distribution Width 14.9 % (11.6-14.8); White Blood Cell Count 8.6 X10^3/uL (4.5-11.0)
[2018-11-29 11:57] VITALS: BP 190/81; PULSE 58; RESP 18; TEMP 36.7; O2SAT 98
[2018-11-29] MEDS: DARBEPOETIN 60 MCG/0.3 ML SYRINGE SUBCUT (12:28)
--- NOTE | 2018-11-29 12:43 | P.PNONC_ITS ---
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 Previous treatment: Aranesp. She is currently on 60 mg every other week. Interval history: The patient is an 83-year-old woman who returns today for follow-up. Since her last visit here, she has started on Aranesp every other week. She has had some improvement in her hemoglobin. She has actually missed a couple of injections because her hemoglobin was greater than 11. She notes that she still has some dyspnea on exertion but the amount of exertion required has increased. She still has some dizziness that has not changed. Overall, her strength and energy level or only slightly better. She denies any fevers or chills. No nausea or vomiting. She has not noted any unusual bleeding or bruising. She did have a recent steroid injection in her back which seems to have helped a little bit. She also notes that she has had a pulsatile area in her left antecubital fossa following of blood draw. She has had an ultrasound done that did not show any abnormalities. She denies any other changes in her health. - Patient Self-Reported Symptoms SR Constitution: Night Sweats SR respiratory issues: Shortness of breath SR Gastrointestinal issues: Diarrhea SR Musculoskeletal issues: Muscle pain or cramps SR Neuro issues: Difficulty balancing SR Hematologic issues: Bleeding/bruising Home Medications and Allergies Home Medications Medication Instructions Recorded Confirmed Type Vitamin E (VITAMIN E) 400 units PO QDAY #0 04/17/13 10/27/18 History cyanocobalamin (vitamin B-12) 1,000 mcg PO QDAY #0 07/07/16 10/27/18 History ferrous gluconate 236 mg PO QAM #0 09/08/16 10/27/18 History [PAPAYA ENZYME] 3 tab PO QAM PRN #0 05/18/18 10/27/18 History ascorbate calcium-bioflavonoid 2 tab PO QAM 06/28/18 10/27/18 History [Heather-C with Bioflavonoids] carvedilol 12.5 mg tablet 6.25 mg PO BID tab 08/24/18 10/27/18 History oxycodone-acetaminophen 7.5 mg-325 1 tab PO Q8H PRN #90 tab 10/10/18 10/27/18 Rx mg tablet fenofibrate 160 mg tablet 160 mg PO HS #90 tab 10/17/18 10/27/18 Rx [CALCIUM/MAG/POTAS.] 1 tab PO QDAY #0 10/27/18 10/27/18 History aspirin 81 mg tablet,delayed 81 mg PO .COMPLEX tab 10/27/18 10/27/18 History release cholecalciferol (vitamin D3) 2,000 6,000 unit PO DAILY cap 10/27/18 10/27/18 History unit capsule gabapentin 300 mg capsule 300 mg PO TID #90 cap 10/27/18 Rx multivitamin tablet 1 tab PO QDAY #0 tab 10/27/18 10/27/18 History Allergies Allergy/AdvReac Type Severity Reaction Status Date / Time belladonna alkaloids Allergy Severe severe Verified 10/27/18 16:00 [From BELLERGAL-S] swelling and itching ergotamine [From BELLERGAL-S] Allergy Severe severe Verified 10/27/18 16:00 swelling and itching phenobarbital Allergy Severe severe Verified 10/27/18 16:00 [From BELLERGAL-S] swelling and itching shellfish derived AdvReac Severe ill, n/v Verified 10/27/18 16:00 [SHELLFISH DERIVED] Exam - Constitutional positive no acute distress, positive average body habitus - Routine HEENT Exam Head: Present: normocephalic, atraumatic Eye: Present: EOMI, PERRL. Absent: conjunctival icterus, scleral injection ENT: Present: mucous membranes moist, oropharynx clear - Routine Neck Exam Present: supple. Absent: lymphadenopathy, thyromegaly - Routine Respiratory Exam Present: Clear to auscultation bilaterally. Absent: rales, wheezes - Routine Cardiovascular Exam Present: RRR, S1, S2. Absent: murmur - Routine Abdominal Exam Present: soft, normoactive bowel sounds. Absent: tenderness, organomegaly, mass - Routine Extremities Exam Absent: cyanosis, clubbing, edema - Routine Skin Exam Present: intact. Absent: petechiae, rash - Routine Neurological Exam Present: alert, oriented X3 - Routine Psychiatric Exam Present: normal affect, normal thought process Results - Labs Laboratory Last Values WBC 8.6 X10^3/uL (4.5-11.0) 11/29/18 11:50 RBC 3.67 X10^6/uL (4.0-5.2) L 11/29/18 11:50 Hgb 10.8 g/dL (12.0-16.0) L 11/29/18 11:50 Hct 32.5 % (36-46) L 11/29/18 11:50 MCV 88.5 fL (80-100) 11/29/18 11:50 MCH 29.4 PG (26-34) 11/29/18 11:50 MCHC 33.2 % (30-36) 11/29/18 11:50 RDW 14.9 % (11.6-14.8) H 11/29/18 11:50 Plt Count 167 X10^3/uL (150-400) 11/29/18 11:50 Neut % (Auto) 74.8 % (50-75) 11/29/18 11:50 Lymph % (Auto) 15.7 % (25-40) L 11/29/18 11:50 [place] % (Auto) 9.0 % (3-14) 11/29/18 11:50 Eos % (Auto) 0.0 % (2-4) L 11/29/18 11:50 Baso % (Auto) 0.5 % (0-2) 11/29/18 11:50 Neut # (Auto) 6400 /uL (8540-1166) 11/29/18 11:50 Lymph # (Auto) 1300 /uL (7185-8873) 11/29/18 11:50 [place] # (Auto) 800 /uL (0-900) 11/29/18 11:50 Eos # (Auto) 0 /uL (0-450) 11/29/18 11:50 Baso # (Auto) 0 /uL (0-100) 11/29/18 11:50 - Imaging Additional studies: Procedures Repair of entropion or ectropion with lid reconstruction (06/27/13) Assessment and Plan (1) Anemia in stage 3 chronic kidney disease Problem details: 83-year-old woman with renal insufficiency and a moderate normocytic anemia. She has been tolerating Aranesp well and her hemoglobin has improved. She will continue with Aranesp but I think we can change injections to every 3 weeks. She return to clinic in about 3 months for follow-up. Current visit: No Status: Chronic
== END ==
PROVIDERS: PCP Family Medicine
DX: N18.3 Chronic kidney disease, stage 3 (moderate) (principal); D63.1 Anemia in chronic kidney disease
CPT/HCPCS: 85025; 96372; 99214; J0881

== ENCOUNTER → 2018-12-15 13:40 | Outpatient (CLI) | payer MEDICARE, OTHER, SELFPAY ==
--- NOTE | 2018-12-15 | DI.MG.S_ITS ---
BILATERAL DIGITAL SCREENING MAMMOGRAM 3D/2D WITH CAD WITH AUGMENTATION: 12/15/2018 CLINICAL: Patient presents for routine screening. S/P bilateral augmentation. Comparison is made to exams dated: 12/08/2017 mammogram, 11/10/2016 mammogram, and 11/06/2015 mammogram - [facility]. The tissue of both breasts is heterogeneously dense. This may lower the sensitivity of mammography. Current study was also evaluated with a Computer Aided Detection (CAD) system. Bilateral breast implants are stable. No significant masses, calcifications, or other findings are seen in either breast. There has been no significant interval change. IMPRESSION: NEGATIVE There is no mammographic evidence of malignancy. A 1 year screening mammogram is recommended. This exam was interpreted at Station ID: [id number]. NOTE: For mammograms, a report in lay terms will be sent to the patient. Approximately 15% of breast malignancies will not be visualized mammographically. In the management of a palpable breast mass, a negative mammogram must not discourage biopsy of a clinically suspicious lesion. Electronically Signed By: Rafi hook/erlinda:12/15/2018 16:05:35 letter sent: Normal Exam ACR BI-RADS Category 1: Negative [id number]
== END ==
PROVIDERS: PCP Family Medicine; Visit Provider Family Medicine
DX: Z12.31 Encounter for screening mammogram for malignant neoplasm of breast (principal); Z98.82 Breast implant status
CPT/HCPCS: 77063; 77067

== ENCOUNTER → 2018-12-20 13:34 | Outpatient (CLI) | payer MEDICARE, OTHER, SELFPAY ==
[2018-12-20 14:06] VITALS: BP 155/86; PULSE 76; RESP 16; TEMP 36.9
[2018-12-20 14:09] LABS: Add Manual Diff / Slide Review NO; Basophils Absolute Auto 0 /uL (0-100); Basophils Percent Auto 0.8 % (0-2); Eosinophils Absolute Auto 100 /uL (0-450); Eosinophils Percent Auto 2.6 % (2-4); Hematocrit 34.5 % (36-46); Hemoglobin 11.5 g/dL (12.0-16.0); Lymphocytes Absolute Auto 1200 /uL (1100-4500); Lymphocytes Percent Auto 37.5 % (25-40); Mean Corpuscular HGB Conc 33.5 % (30-36); Mean Corpuscular Hemoglobin 29.2 PG (26-34); Mean Corpuscular Volume 87.2 fL (80-100); Monocytes Absolute Auto 400 /uL (0-900); Monocytes Percent Auto 12.9 % (3-14); Neutrophils Absolute Auto 1500 /uL (1500-7000); Neutrophils Percent Auto 46.2 % (50-75); Platelet Count 172 X10^3/uL (150-400); Red Blood Cell Count 3.95 X10^6/uL (4.0-5.2); Red Cell Distribution Width 15.1 % (11.6-14.8); White Blood Cell Count 3.3 X10^3/uL (4.5-11.0)
== END ==
PROVIDERS: PCP Family Medicine
DX: N18.3 Chronic kidney disease, stage 3 (moderate) (principal); D63.1 Anemia in chronic kidney disease
CPT/HCPCS: 36415; 85025

== ENCOUNTER → 2018-12-23 11:45 | Outpatient (CLI) | payer MEDICARE, OTHER, SELFPAY ==
[2018-12-23 12:18] LABS: Hematocrit 34.1 % (36-46); Hemoglobin 11.4 g/dL (12.0-16.0)
[2018-12-23 12:48] LABS: HEMOLYSIS < 15 (0-50); Iron 144 ug/dL (37-170)
[2018-12-23 12:49] LABS: BUN Creatinine Ratio 24.1 (6-22); Blood Urea Nitrogen 41 mg/dL (7-17); Calcium 8.9 mg/dL (8.4-10.2); Carbon Dioxide 26 mmol/L (22-32); Chloride 103 mmol/L (98-107); Estimated Glomerular Filt Rate 28.7 mL/min (>60); Glucose 91 mg/dL (80-110); HEMOLYSIS < 15 (0-50); Potassium 3.3 mmol/L (3.4-5.1); Sodium 141 mmol/L (137-145)
[2018-12-23 12:58] LABS: Percent Iron Saturation 42 % (15-50); Total Iron Binding Capacity 341 ug/dL (265-497); Transferrin 270 mg/dL (206-381)
[2018-12-23 13:04] LABS: Creatinine Urine Random 87.3 mg/dL; Protein (Total) Urine Random 62 mg/dL (0-12); Protein Creatinine Ratio Urine 0.71 GRAM/24H
[2018-12-26 15:00] LABS: Parathyroid Hormone Int 108 pg/mL (14-64)
== END ==
PROVIDERS: Family Provider Family Medicine; PCP Family Medicine; Visit Provider Student in an Organized Health Care Education/Training Program
DX: N05.9 Unspecified nephritic syndrome with unspecified morphologic changes (principal); D50.0 Iron deficiency anemia secondary to blood loss (chronic); D64.9 Anemia, unspecified; N25.81 Secondary hyperparathyroidism of renal origin; R80.9 Proteinuria, unspecified
CPT/HCPCS: 36415; 80048; 82570; 82728; 83540; 83550; 83970; 84156; 85014; 85018

== ENCOUNTER 2018-12-26 13:03 | Outpatient (CLI) | payer MEDICARE, OTHER, SELFPAY ==
[2018-12-26] VITALS (12 sets, daily range): BP systolic 144–191; BP diastolic 69–91; PULSE 63–68; RESP 16–20; TEMP 36.7; O2SAT 97–100
--- NOTE | 2018-12-26 13:04 | DI.RAD.S_ITS ---
PROCEDURE: PAIN L/SI FACET INJ/BLK 1STL INDICATIONS: SPINAL STENOSIS FINDINGS: Fluoroscopic spot filming was performed to verify placement of spinal needles at the L4-L5, L5-S1 level(s), as labeled on the films. Appropriate location(s) of the needle tip(s) was confirmed by injection of iodinated contrast. Dictated by: Branden Pressley M.D. on 12/26/2018 at 15:29 Approved by: Branden Pressley M.D. on 12/26/2018 at 15:33
[2018-12-26] MEDS: MIDAZOLAM 5 MG/5 ML VIAL IV (13:35)
[2018-12-26] MEDS: BETAMETHASONE 30 MG/5 ML MDV 12 MG INJ (13:45)
[2018-12-26] MEDS: IOPAMIDOL 15 ML VIAL 3 ML INJ (13:45)
[2018-12-26] MEDS: BUPIVACAINE 0.25% (PF) VIAL 5 ML INJ (13:45)
[2018-12-26] MEDS: LIDOCAINE 1% 20 ML INJ 10 ML INJ (13:45)
--- NOTE | 2018-12-26 13:47 | PC.NURSE ---
ASSISTING PT OFF TABLE AND TRANSPORTING TO POST PROC AREA IN STABLE CONDITION
--- NOTE | 2018-12-26 13:56 | P.PCN_ITS ---
Procedures Date/Time Date of procedure: 12/26/18 Time of procedure: 13:55 General Procedure description: PREOP DIAGNOSIS 1. FACET ARTHROPATHY 2. AXIAL LBP 3. MULTILEVEL DDD POST OP DIAGNOSIS 1. FACET ARTHROPATHY 2. AXIAL LBP 3. MULTILEVEL DDD PROCEDURES 1. FLUORSCOPICALLY GUIDED CONTRAST CONTROLLED FACET JOINT INJECTIONS BILATERAL L4/5, L5/S1 PHYSICIAN: Lex Malone, DO INDICATIONS Margaux is referred by Dr. Herrera for treatment of Axial LBP FINDINGS Multilevel Facet Arthropathy with Clinically significant axial LBP DESCRIPTION OF PROCEDURE Fluoroscopically guided, contrast-controlled bilateral L4/5, L5/S1 facet joint injections. Following denial of allergy and review of potential side effects and complications, including, but not necessarily limited to, infection, allergic reaction, local tissue breakdown, stroke, temporary or permanent nerve injury, paralysis, and possible , the patient indicated that the patient understood and agreed to proceed. An informed consent document was signed by the patient, witnessed by a nurse, and placed in the patient's chart. Additionally, other treatment options including medications, modalities, and physical therapy were reviewed with the patient. After review of previous anaesthesic history and IV conscious sedation the patient was deemed safe to proceed with todays procedure with IV conscious sedation as ASA class II designation. Safety time-out was performed to confirm patient ID, procedure to be performed and site of procedure. IV sedation was accomplished with a combination of 2mg was administered by the RN after DO order, titrated to patient comfort during the course of the procedure while the patient remained responsive to all verbal commands In the prone position, following sterile prep and drape of the lumbar region, the posterior aspect of the L4/5, L5/S1 facet joints were identified fluoroscopically. The skin was anesthetized via a 25-gauge 1.5-inch needle with 1% lidocaine solution into the corresponding facet joints. At this point, a 22- gauge 3.5-inch spinal needle was atraumatically introduced and advanced under fluoroscopic guidance into the corresponding facet joints. Following negative aspiration, injections of approximately 0.2-cc of Isovue 200 confirmed interarticular placement without vascular uptake. The identical procedure was then performed at the L4/5, L5/S1 facet joints on the left. Radiological data, including multiple fluoroscopic views of the lumbosacral spine, reveal a spinal needle at the L4/5, L5/S1 facet joints bilaterally. Subsequent views show flow of contrast material both superiorly and inferiorly within the joint space without vascular or intrathecal uptake. At this point, a total of 0.5 cc including a mixture of 0.25cc Marcaine and 0.25cc betamethasone was injected without complication into each of the corresponding facet joints. The patient tolerated the procedure well without signs or symptoms of complications prior to transfer to the recovery area continued monitoring wi thout incident. The patient was then transferred to the recovery area where they were observed for an appropriate period of time after the injection. The patient reported a VAS score of 7 prior to the procedure and a post- procedure VAS of 0. Total Fluoroscopy Time: 20.3 seconds Total Conscious Sedation Time: 24min POST OP INSTRUCTIONS The patient was provided a Pain Log to continue to record their response to the target-specific procedure prior to follow-up visit with their referring physician. Additionally, specific post-injection care instructions and a contact number to our office were provided if concerns arise regarding possible complications associated with the procedure are suspected. Lex Malone DO Complications: none
--- NOTE | 2018-12-27 12:46 | PC.NURSE ---
FOLLOW UP CALL MADE. PT C/O PERSISTENT 3/10 HEADACHE SINCE THIS MORNING BUT DENIES INCREASE IN PAIN WITH CHANGES OF POSITION. I ENCOURAGED HER TO USE OTC TYLENOL (OKAY'D BY HER UROLOGIST) FOR PAIN AND TO CALL THE CLINIC IF HEADACHE CONTINUES. WILL NOTIFY DR. MACKEY. PT DENIED OTHER QUESTIONS/CONCERNS AT THIS TIME.
== END 2018-12-26 14:24 ==
LOC: RAD 13:04
PROVIDERS: Family Provider Family Medicine; PCP Family Medicine; Visit Provider Physical Medicine & Rehabilitation
DX: M47.816 Spondylosis without myelopathy or radiculopathy, lumbar region (principal); M47.817 Spondylosis without myelopathy or radiculopathy, lumbosacral region; M51.36 Other intervertebral disc degeneration, lumbar region; M51.37 Other intervertebral disc degeneration, lumbosacral region; M54.5 Low back pain
CPT/HCPCS: 64493; 64494; 99152; J0702; J2250

== ENCOUNTER → 2019-01-01 12:12 | Outpatient (CLI) | payer MEDICARE, OTHER, SELFPAY ==
[2019-01-01 12:53] LABS: HEMOLYSIS < 15 (0-50); Potassium 4.6 mmol/L (3.4-5.1)
== END ==
PROVIDERS: Family Provider Family Medicine; PCP Family Medicine; Visit Provider Student in an Organized Health Care Education/Training Program
DX: E87.5 Hyperkalemia (principal)
CPT/HCPCS: 36415; 84132

== ENCOUNTER → 2019-01-10 13:21 | Outpatient (CLI) | payer MEDICARE, OTHER, SELFPAY ==
[2019-01-10 14:09] LABS: Add Manual Diff / Slide Review NO; Basophils Absolute Auto 0 /uL (0-100); Basophils Percent Auto 0.8 % (0-2); Eosinophils Absolute Auto 100 /uL (0-450); Eosinophils Percent Auto 1.4 % (2-4); Hematocrit 30.1 % (36-46); Hemoglobin 9.8 g/dL (12.0-16.0); Lymphocytes Absolute Auto 1500 /uL (1100-4500); Lymphocytes Percent Auto 26.3 % (25-40); Mean Corpuscular HGB Conc 32.6 % (30-36); Mean Corpuscular Hemoglobin 29.2 PG (26-34); Mean Corpuscular Volume 89.4 fL (80-100); Monocytes Absolute Auto 500 /uL (0-900); Monocytes Percent Auto 9.7 % (3-14); Neutrophils Absolute Auto 3400 /uL (1500-7000); Neutrophils Percent Auto 61.8 % (50-75); Platelet Count 138 X10^3/uL (150-400); Red Blood Cell Count 3.36 X10^6/uL (4.0-5.2); Red Cell Distribution Width 15.8 % (11.6-14.8); White Blood Cell Count 5.5 X10^3/uL (4.5-11.0)
[2019-01-10 14:42] VITALS: BP 189/76; PULSE 68; RESP 17; TEMP 37.3; O2SAT 100
[2019-01-10] MEDS: DARBEPOETIN 60 MCG/0.3 ML SYRINGE SUBCUT (14:48)
--- NOTE | 2019-01-10 15:03 | PC.NURSE ---
Dr Dodd's nurse notified regarding pt high blood pressure trend despite being on anti hypertensives. She states she will discuss with Dr Dodd. She reports that patient has an appt with Dr Dodd next . They will reach out to the patient. Per Dr Rodríguez, ok to give todays dose of Aranesp. Blood pressure 189/77.
[2019-02-01 16:42] LABS: Add Manual Diff / Slide Review NO; Basophils Absolute Auto 0 /uL (0-100); Basophils Percent Auto 0.3 % (0-2); Eosinophils Absolute Auto 100 /uL (0-450); Eosinophils Percent Auto 1.8 % (2-4); Hematocrit 29.7 % (36-46); Hemoglobin 9.8 g/dL (12.0-16.0); Lymphocytes Absolute Auto 1400 /uL (1100-4500); Lymphocytes Percent Auto 34.9 % (25-40); Mean Corpuscular Hemoglobin 29.6 PG (26-34); Mean Corpuscular Volume 89.7 fL (80-100); Monocytes Absolute Auto 400 /uL (0-900); Monocytes Percent Auto 10.1 % (3-14); Neutrophils Absolute Auto 2100 /uL (1500-7000); Neutrophils Percent Auto 52.9 % (50-75); Platelet Count 159 X10^3/uL (150-400); Red Blood Cell Count 3.31 X10^6/uL (4.0-5.2); Red Cell Distribution Width 15.3 % (11.6-14.8)
== END ==
PROVIDERS: Family Provider Family Medicine; PCP Family Medicine
DX: N18.3 Chronic kidney disease, stage 3 (moderate) (principal); D63.1 Anemia in chronic kidney disease
CPT/HCPCS: 36415; 85025; 96372; J0881

== ENCOUNTER → 2019-01-15 14:39 | Outpatient (CLI) | payer MEDICARE, OTHER, SELFPAY | PROVIDERS: PCP Family Medicine; Visit Provider Family Medicine | DX: R19.7 Diarrhea, unspecified (principal) | CPT/HCPCS: 87493 ==

== ENCOUNTER → 2019-01-22 15:26 | Outpatient (CLI) | payer MEDICARE, OTHER, SELFPAY ==
[2019-01-22 20:41] LABS: Clostridium Difficile Tox PCR Positive for C. diff
== END ==
PROVIDERS: PCP Family Medicine; Visit Provider Family Medicine
DX: K52.9 Noninfective gastroenteritis and colitis, unspecified (principal); R19.7 Diarrhea, unspecified
CPT/HCPCS: 87045; 87493; 87899

== ENCOUNTER → 2019-02-01 15:38 | Outpatient (CLI) | payer MEDICARE, OTHER, SELFPAY ==
[2019-02-01 16:58] VITALS: BP 144/69; PULSE 61; RESP 16; TEMP 36.7; O2SAT 99
[2019-02-01] MEDS: DARBEPOETIN 60 MCG/0.3 ML SYRINGE SUBCUT (16:59)
== END ==
PROVIDERS: PCP Family Medicine
DX: N18.3 Chronic kidney disease, stage 3 (moderate) (principal); D63.1 Anemia in chronic kidney disease
CPT/HCPCS: 96372; J0881

== ENCOUNTER → 2019-02-02 17:10 | Outpatient (CLI) | payer MEDICARE, OTHER, SELFPAY ==
[2019-02-02 18:47] LABS: Blood Urea Nitrogen 39 mg/dL (7-17); Calcium 8.7 mg/dL (8.4-10.2); Carbon Dioxide 25 mmol/L (22-32); Chloride 107 mmol/L (98-107); Estimated Glomerular Filt Rate 33.1 mL/min (>60); Glucose 140 mg/dL (80-110); HEMOLYSIS < 15 (0-50); Sodium 141 mmol/L (137-145)
[2019-02-02 18:59] LABS: Creatinine Urine Random 89.9 mg/dL; Protein (Total) Urine Random 13 mg/dL (0-12); Protein Creatinine Ratio Urine 0.14 GRAM/24H
== END ==
PROVIDERS: Family Provider Internal Medicine Cardiovascular Disease; PCP Family Medicine; Visit Provider Student in an Organized Health Care Education/Training Program
DX: N05.9 Unspecified nephritic syndrome with unspecified morphologic changes (principal); R80.9 Proteinuria, unspecified; R06.02 Shortness of breath; I10 Essential (primary) hypertension
CPT/HCPCS: 36415; 80048; 82570; 84156

== ENCOUNTER → 2019-02-09 13:49 | Outpatient (CLI) | payer MEDICARE, OTHER, SELFPAY ==
--- NOTE | 2019-02-09 14:51 | P.PCN_ITS ---
Cardiac Stress Test Report Referral & Results Date Patient Seen: 02/09/19 Requesting provider: Bridgette Quinn Indication: Severe dyspnea upon exertion Rest ECG: Unremarkable Procedure Note: Patient was started as a standard [facility]rence protocol Cardiolite treadmill. As however after less than 45-50 seconds on the treadmill she began to quickly fatigue became unable to keep up and had very severe dyspnea. Therefore treadmill was lowered to 0% elevation and 1 mi an hour and patient was administered Lexiscan 3 previously started IV by the new med radioisotope technician. She was immediately then administered the Cardiolite material. Patient continued on the treadmill at 1 mi an hours 0 elevation for additional 3 minutes Patient became progressively more weak and dyspneic. No ST-T segment changes noted until mid to late recovery 1 there were some nonspecific ST segment drooping in leads V4 through V6 Of note patient did hold her carvedilol prior to this procedure and her heart rate at the beginning of the procedure was in the mid 80s Impression: Severe symptoms with minimal activity as above. Nonspecific ST changes with minimal activity as above Please see perfusion imaging details for status regarding possible ischemia Please note: Actual ECG tracings can be found in the PACS system.
--- NOTE | 2019-02-12 17:36 | DI.NM.S_ITS ---
DATE OF SERVICE: 02/09/2019 PROCEDURE: Exercise perfusion study. INDICATIONS: Shortness of breath with underlying hypertension, hyperlipidemia. RADIOPHARMACEUTICAL: 25.8 mCi technetium-99m Myoview IV was injected at stress and 25.5 mCi technetium-99m Myoview IV was injected at rest. CARDIAC STRESS: Patient initially attempted exercise stress test. However, she became short of breath within 50 seconds of walking on the treadmill. Hence, study was converted to Lexiscan stress test. Patient received IV Lexiscan as per standard protocol under the supervision of an attending staff. Baseline EKG revealed sinus rhythm with intermittent PACs and some PVCs with up to less than 0.5-mm horizontal ST depression in inferolateral leads. During stress, there was little bit more pronounced ST depression in inferolateral leads. No new significant arrhythmias seen. Patient remained hemodynamically stable. RAW DATA: Breast shadow was seen. GATED STUDY: Stress LV ejection fraction 74% without any obvious wall motion abnormalities. Resting end-diastolic volume is 114 mL. No transient ischemic dilatation. TID ratio is 0.95, which is within normal limits. Lung/heart ratio is 0.37, which is within normal limits. MYOCARDIAL PERFUSION SCAN: Stress supine, resting supine, and stress prone images were compared to each other. Stress supine and resting supine images revealed small-sized mildly decreased perfusion of anterior wall and distal anterior septum which got completely resolved during prone images suggestive of breast tissue attenuation artifact. Prone images revealed normal myocardial perfusion. CONCLUSION: I will call this study a normal myocardial perfusion study with preserved LV function without any transient ischemic dilatation. However, patient has significant shortness of breath during exertion. As far as perfusion scan is concerned, this is a low-risk myocardial perfusion scan. Consider pulmonary workup to rule out pulmonary etiology. Patient had perfusion study in 04/2015. At that time also she had normal myocardial perfusion. Margaux Hinton - CARLOS/nelson/ doc#: [id number]/job#: [id number] dd: 02/12/2019 16:50:00 dt: 02/12/2019 17:23:00 DICTATING MD/COPIES TO: Bridgette Quinn MD COPIES MNE: ANUP
== END ==
PROVIDERS: Family Provider Internal Medicine Cardiovascular Disease; PCP Family Medicine; Visit Provider Internal Medicine Cardiovascular Disease
DX: R06.02 Shortness of breath (principal); R06.00 Dyspnea, unspecified; I10 Essential (primary) hypertension; E78.5 Hyperlipidemia, unspecified
CPT/HCPCS: 78452; 93016; 93017; 93018; A9502; J2785

== ENCOUNTER → 2019-02-12 12:51 | Outpatient (CLI) | payer MEDICARE, OTHER, SELFPAY ==
--- NOTE | 2019-02-12 | DI.ECHO.S_ITS ---
[facility] +---------+ : : [address] : : : : [id number] : : : : Phone: [phone]+ Echocardiogram Report + + :Name: TIFFANIE SERRANO Study Date: 02/12/2019 Height: 61 in : :[facility] Weight: 130 lb : : Gender: Female BSA: 1.6 m2 : :: 1935 Age: 84 yrs BP: 160/77 mmHg: :Reason For Study: SOB : : Performed By: Ana M Ortiz : :Referring: SADI LEOS : + + Interpretation Summary The left ventricle is normal in size. The ejection fraction is estimated to be 60-65%. No significant change in LV ejection fraction from the previous study. MV E/A: 0.69 Med Peak E' Eduardo: 3.8 cm/sec E/E' med: 20.3 The right ventricle is normal size. The right ventricular systolic function is normal. There is trace tricuspid regurgitation. The right ventricular systolic pressure is estimated to be at least 30 mmHg based on an estimated right atrial pressure of 3 mm Hg. Procedure: A two-dimensional transthoracic echocardiogram with color flow and Doppler was performed. The study quality was technically adequate. Comparison is made with the echocardiogram of 11-30-13. The patient was in normal sinus rhythm during the exam. Left Ventricle: The left ventricle is normal in size. Left ventricular wall thickness is mildly increased. There is no thrombus. The ejection fraction is estimated to be 60-65%. There has been no significant change since the previous study. There are no focal wall motion abnormalities. MV E/A: 0.69 Med Peak E' Eduardo: 3.8 cm/sec E/E' med: 20.3. Right Ventricle: The right ventricle is normal size. The right ventricular systolic function is normal. Atria: The left atrium is severely dilated. The left atrium has significantly increased in size since the prior echo exam. Right atrial size is normal. The interatrial septum is intact with no evidence for an atrial septal defect. Mitral Valve: There is mild mitral annular calcification. There is mild mitral regurgitation. Aortic Valve: The aortic valve is trileaflet. The aortic valve opens well. There is no aortic valve stenosis. No aortic regurgitation is present. Tricuspid Valve: The tricuspid valve is normal in structure and function. There is trace tricuspid regurgitation. The right ventricular systolic pressure is estimated to be at least 30 mmHg based on an estimated right atrial pressure of 3 mm Hg. Pulmonic Valve: The pulmonic valve is not well seen, but is grossly normal. There is mild pulmonic regurgitation. Great Vessels: The aortic root is normal size. The ascending aorta is at the upper limits of normal in size. The aortic arch is normal in size. The IVC is of normal diameter and collapses greater than 50% with a sniff. This suggests a low right atrial pressure of 3 mm Hg. Pericardium/ Pleura There is no pericardial effusion. There is no pleural effusion. MMode/2D Measurements & Calculations LVIDd: 4.6 cm Ao root diam: 3.3 cm LVIDs: 3.0 cm Aortic Jxn: 2.7 cm FS: 34.2 % asc Aorta Diam: 3.6 cm EPSS: 0.38 cm Ao Arch Diam (Prox Trans): 2.4 cm IVSd: 1.2 cm LVPWd: 0.86 cm LV horvath. diameter/BSA (cm/m^2): 2.9 LV sys. diameter/BSA (cm/m^2): 1.9 LA dimension: 4.2 cm RA long axis: 4.8 cm LA A2 area: 25.1 cm2 RA area: 17.0 cm2 LA A4 area: 24.3 cm2 RA vol: 50.7 ml LA length (vol): 5.4 cm RA : 32.2 ml/m2 LA vol: 95.5 ml IVC diam: 1.4 cm LA vol index: 60.7 ml/m2 RVDd major: 5.4 cm RVD1 (basal): 3.7 cm RVD2 (mid): 3.3 cm Doppler Measurements & Calculations Ao V2 max: 124.8 cm/sec MV E max eduardo: 77.0 cm/sec Ao V2 mean: 80.5 cm/sec MV A max eduardo: 110.9 cm/sec Ao max P.2 mmHg MV E/A: 0.69 Ao mean P.0 mmHg Med Peak E' Eduardo: 3.8 cm/sec Ao V2 VTI: 27.7 cm E/E' med: 20.3 Lat Peak E' Eduardo: 6.5 cm/sec E/E' lat: 11.8 E/e' average: 16.1 MV dec time: 0.25 sec MV P1/2t: 71.1 msec TR max eduardo: 258.3 cm/sec MV P1/2t max eduardo: 76.5 cm/sec TR max P.7 mmHg MVA(P1/2t): 3.1 cm2 PA V2 max: 88.3 cm/sec PA V2 mean: 58.4 cm/sec PA mean P.6 mmHg PA Accel Time: 0.14 sec Reading Physician:SHY
== END ==
PROVIDERS: Family Provider Internal Medicine Cardiovascular Disease; PCP Family Medicine; Visit Provider Internal Medicine Cardiovascular Disease
DX: I34.0 Nonrheumatic mitral (valve) insufficiency (principal); I37.1 Nonrheumatic pulmonary valve insufficiency; R06.02 Shortness of breath
CPT/HCPCS: 93306

== ENCOUNTER → 2019-02-21 13:25 | Outpatient (CLI) | payer MEDICARE, OTHER, SELFPAY ==
[2019-02-21 14:12] LABS: Add Manual Diff / Slide Review NO; Basophils Absolute Auto 0 /uL (0-100); Basophils Percent Auto 1.2 % (0-2); Eosinophils Absolute Auto 100 /uL (0-450); Eosinophils Percent Auto 3.1 % (2-4); Hemoglobin 11.2 g/dL (12.0-16.0); Lymphocytes Absolute Auto 1300 /uL (1100-4500); Lymphocytes Percent Auto 37.9 % (25-40); Mean Corpuscular HGB Conc 33.9 % (30-36); Mean Corpuscular Hemoglobin 30.6 PG (26-34); Mean Corpuscular Volume 90.1 fL (80-100); Monocytes Absolute Auto 400 /uL (0-900); Monocytes Percent Auto 11.1 % (3-14); Neutrophils Absolute Auto 1600 /uL (1500-7000); Neutrophils Percent Auto 46.7 % (50-75); Platelet Count 151 X10^3/uL (150-400); Red Blood Cell Count 3.67 X10^6/uL (4.0-5.2); Red Cell Distribution Width 15.5 % (11.6-14.8); White Blood Cell Count 3.4 X10^3/uL (4.5-11.0)
[2019-02-21 14:18] VITALS: BP 162/73; PULSE 65; RESP 18; TEMP 36.8; O2SAT 99
--- NOTE | 2019-02-21 14:40 | P.PNONC_ITS ---
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 Previous treatment: Aranesp. She is currently on 60 mg every other week. Interval history: The patient is an 84-year-old woman who returns today for follow-up. She has a history of anemia due to renal insufficiency. She has been on Aranesp 60 micro g every other week. She did miss a couple of doses because her hemoglobin was too high. Most recently it has been in the 9. She notes some ongoing dyspnea on exertion. She did have a cardiac evaluation that included an echocardiogram and a stress test. Her ejection fraction was normal. There was no evidence of ischemia. She has not had any unusual bleeding or bruising. No fevers chills or sweats. Her appetite has been good. No GI complaints. She denies any other changes in her health. - Patient Self-Reported Symptoms SR Constitution: Night Sweats SR respiratory issues: Shortness of breath SR Neuro issues: Difficulty balancing Home Medications and Allergies Home Medications Medication Instructions Recorded Confirmed Type Vitamin E (VITAMIN E) 400 units PO QDAY #0 04/17/13 02/05/19 History cyanocobalamin (vitamin B-12) 1,000 mcg PO QDAY #0 07/07/16 02/05/19 History ferrous gluconate 236 mg PO QAM #0 09/08/16 02/05/19 History [PAPAYA ENZYME] 3 tab PO QAM PRN #0 05/18/18 02/21/19 History carvedilol 12.5 mg tablet 6.25 mg PO BID tab 08/24/18 02/05/19 History fenofibrate 160 mg tablet 160 mg PO HS #90 tab 10/17/18 02/05/19 Rx [CALCIUM/MAG/POTAS.] 1 tab PO QDAY #0 10/27/18 02/21/19 History aspirin 81 mg tablet,delayed 81 mg PO .COMPLEX tab 10/27/18 02/05/19 History release cholecalciferol (vitamin D3) 2,000 6,000 unit PO DAILY cap 10/27/18 02/05/19 History unit capsule multivitamin tablet 1 tab PO QDAY #0 tab 10/27/18 02/05/19 History oxycodone-acetaminophen 7.5 mg-325 1 tab PO BID PRN #60 tab 01/12/19 02/05/19 Rx mg tablet potassium chloride ER 20 mEq 20 meq PO DAILY 01/12/19 02/05/19 History tablet,extended release hydrocortisone 2.5 % topical cream 1 applictn TOP BID #30 gram 01/22/19 02/05/19 Rx amlodipine [Norvasc] 5 mg PO BID 02/21/19 02/21/19 History lisinopril 10 mg PO DAILY 02/21/19 02/21/19 History Allergies Allergy/AdvReac Type Severity Reaction Status Date / Time belladonna alkaloids Allergy Severe severe Verified 02/05/19 12:10 [From BELLERGAL-S] swelling and itching ergotamine [From BELLERGAL-S] Allergy Severe severe Verified 02/05/19 12:10 swelling and itching phenobarbital Allergy Severe severe Verified 02/05/19 12:10 [From BELLERGAL-S] swelling and itching shellfish derived AdvReac Severe ill, n/v Verified 02/05/19 12:10 [SHELLFISH DERIVED] Exam Vital signs: Vital Signs Temp Pulse Resp BP Pulse Ox 02/21/19 14:18 98.2 F 65 18 162/73 H 99 Intake and Output 02/20/19 02/21/19 02/21/19 23:59 07:59 15:59 Other: Weight 62.4 kg Patient Weight 02/21/19 23:59 Weight 62.4 kg - Constitutional positive no acute distress, positive average body habitus - Routine HEENT Exam Head: Present: normocephalic, atraumatic Eye: Present: EOMI, PERRL. Absent: conjunctival icterus, scleral injection ENT: Present: mucous membranes moist, oropharynx clear - Routine Neck Exam Present: supple. Absent: lymphadenopathy, thyromegaly - Routine Respiratory Exam Present: Clear to auscultation bilaterally. Absent: rales, wheezes - Routine Cardiovascular Exam Present: RRR, S1, S2. Absent: murmur - Routine Abdominal Exam Present: soft, normoactive bowel sounds. Absent: organomegaly, mass - Routine Extremities Exam Absent: cyanosis, clubbing, edema - Routine Skin Exam Present: intact. Absent: petechiae, rash - Routine Neurological Exam Present: alert, oriented X3 - Routine Psychiatric Exam Present: normal affect, normal thought process Results - Labs Laboratory Last Values WBC 3.4 X10^3/uL (4.5-11.0) L 02/21/19 14:00 RBC 3.67 X10^6/uL (4.0-5.2) L 02/21/19 14:00 Hgb 11.2 g/dL (12.0-16.0) L 02/21/19 14:00 Hct 33.0 % (36-46) L 02/21/19 14:00 MCV 90.1 fL (80-100) 02/21/19 14:00 MCH 30.6 PG (26-34) 02/21/19 14:00 MCHC 33.9 % (30-36) 02/21/19 14:00 RDW 15.5 % (11.6-14.8) H 02/21/19 14:00 Plt Count 151 X10^3/uL (150-400) 02/21/19 14:00 Neut % (Auto) 46.7 % (50-75) L 02/21/19 14:00 Lymph % (Auto) 37.9 % (25-40) 02/21/19 14:00 [place] % (Auto) 11.1 % (3-14) 02/21/19 14:00 Eos % (Auto) 3.1 % (2-4) 02/21/19 14:00 Baso % (Auto) 1.2 % (0-2) 02/21/19 14:00 Neut # (Auto) 1600 /uL ([id number]) 02/21/19 14:00 Lymph # (Auto) 1300 /uL (3357-9915) 02/21/19 14:00 [place] # (Auto) 400 /uL (0-900) 02/21/19 14:00 Eos # (Auto) 100 /uL (0-450) 02/21/19 14:00 Baso # (Auto) 0 /uL (0-100) 02/21/19 14:00 - Imaging Additional studies: Procedures Repair of entropion or ectropion with lid reconstruction (06/27/13) Assessment and Plan (1) Anemia in stage 3 chronic kidney disease Problem details: 83-year-old woman with renal insufficiency and a moderate normocytic anemia. She has been tolerating Aranesp well and her hemoglobin has improved. She will continue with Aranesp. Her hemoglobin has dropped a little bit on every 3 week dosing. Will go back to every other week. She will return to clinic in about 3 months for follow-up. Current visit: No Status: Chronic
== END ==
PROVIDERS: Family Provider Internal Medicine Cardiovascular Disease; PCP Family Medicine
DX: N18.3 Chronic kidney disease, stage 3 (moderate) (principal); D63.1 Anemia in chronic kidney disease
CPT/HCPCS: 85025; 99214

== ENCOUNTER → 2019-03-06 15:13 | Outpatient (CLI) | payer MEDICARE, OTHER, SELFPAY ==
[2019-03-06 15:29] LABS: Hematocrit 31.4 % (36-46); Hemoglobin 10.6 g/dL (12.0-16.0)
[2019-03-06] MEDS: DARBEPOETIN 60 MCG/0.3 ML SYRINGE SUBCUT (16:19)
[2019-03-06 16:25] VITALS: BP 146/73; PULSE 61; RESP 16; TEMP 36.6; O2SAT 98
== END ==
PROVIDERS: Family Provider Internal Medicine Cardiovascular Disease; PCP Family Medicine
DX: N18.3 Chronic kidney disease, stage 3 (moderate) (principal); D63.1 Anemia in chronic kidney disease
CPT/HCPCS: 85014; 85018; 96372; J0881

== ENCOUNTER 2019-03-07 12:37 | Outpatient (CLI) | payer MEDICARE, OTHER, SELFPAY ==
[2019-03-07] VITALS (8 sets, daily range): BP systolic 127–180; BP diastolic 39–69; PULSE 62–66; RESP 16–18; TEMP 36.8; O2SAT 98–100
--- NOTE | 2019-03-07 12:40 | DI.RAD.S_ITS ---
PROCEDURE: XR LUMBAR SPINE MIN 4V INDICATIONS: Eval TECHNIQUE: 5 views of the lumbar spine were acquired. COMPARISON: [facility], CR, XR LUMBAR SPINE LAT FL EX 3VW, 05/13/2016, 16:54. FINDINGS: Bones: No fracture or focal osseous destruction. Straightening of the normal lumbar lordosis. Multilevel degenerative endplate sclerosis and spurring. Diffuse facet arthropathy. Severe diffuse narrowing of the lumbar disc spaces from L2-L5. There is also moderate L1-L2 and L5-S1 disc space narrowing. No interval change. Soft tissues: Scattered vascular calcifications seen in the aorta. Oblique images: No pars defects. IMPRESSION: Multilevel lumbar spondylosis and facet arthropathy as above. No interval change since 05/13/16. Dictated by: Branden Pressley M.D. on 03/07/2019 at 14:53 Approved by: Branden Pressley M.D. on 03/07/2019 at 14:57
--- NOTE | 2019-03-07 12:40 | DI.RAD.S_ITS ---
PROCEDURE: PAIN L/SI FACET INJ/BLK 1STL INDICATIONS: Lumbosacral spondylosis FINDINGS: Fluoroscopic spot filming was performed to verify placement of spinal needles at the L4, L5, S1 level(s), as labeled on the films. Appropriate location(s) of the needle tip(s) was confirmed by injection of iodinated contrast. IMPRESSION: Bilateral L4, L5, S1 needle tip localization for medial branch block procedures bilaterally. Dictated by: Maykel Jones M.D. on 03/07/2019 at 14:51 Approved by: Maykel Jones M.D. on 03/07/2019 at 14:52
[2019-03-07] MEDS: MIDAZOLAM 5 MG/5 ML VIAL IV (13:55)
--- NOTE | 2019-03-07 14:07 | PC.NURSE ---
pt tolerated procedure well. Able to get off table with 2 person minimal assist. Transferred pt via wheelchair to pre procedure room for continued monitoring with Dorinda SANDERSON.
--- NOTE | 2019-03-07 14:12 | PM.PROC.1 ---
Procedures Date/Time Date of procedure: 03/07/19 Time of procedure: 14:12 General Procedure description: Procedure description: 1. FACET ARTHROPATHY PROCEDURES: 1. BILATERAL- L4, L5 and S1 MB BLOCKS PHYSICIAN: DO JUAN RAMON Lyman Margaux is referred by Dr. Herrera for treatment of Bilateral Axial LBP. DESCRIPTION OF PROCEDURE Fluoroscopically guided, contrast-controlled bilateral L4, L5 and S1 medial branch blocks with 0.5cc of 0.5% Marcaine. Following denial of allergy and review of potential side effects and complications, including, but not necessarily limited to, infection, allergic reaction, local tissue breakdown, nerve injury, paralysis, stroke and possible , the patient indicated that the patient understood and agreed to proceed. An informed consent document was signed by the patient, witnessed by a nurse, and placed in the patient's chart. After review of previous anaesthesic history and IV conscious sedation the patient was deemed safe to proceed with todays procedure with IV conscious sedation as ASA class II designation. Safety time-out was performed to confirm patient ID, procedure to be performed and site of procedure. IV sedation was accomplished with a combination of 3mg of Versed was administered by the RN after DO order, titrated to patient comfort during the course of the procedure while the patient remained responsive to all verbal commands In the prone position, following sterile prep and drape of the lumbar region, the right L4, L5 and S1 anatomical location of the medial branch of the dorsal ramus was identified fluoroscopically. Subsequently an anesthetic skin wheal using 1% lidocaine solution was initiated at each of the anatomical spots. Subsequently then a 22-gauge 3.5-inch spinal needle was atraumatically introduced and advanced under fluoroscopic guidance at each of the corresponding sites at the right L4, L5 and S1 MB. After negative aspiration, 0.2 cc of Isovue 200 was injected, confirming placement without vascular or intrathecal uptake. Subsequently then 0.5 cc of 0.5% Marcaine solution was injected at each of the corresponding sites at the right L4, L5 and S1 medial branch locations. The identical procedure was replicated on the left. The patient tolerated the procedure well without signs or symptoms of complications prior to transfer to the recovery area continued monitoring without incident. Post-procedure, the patient was monitored initiating provocative activities to measure the amount of relief from block of the facetogenic pain. The patient reported a VAS of 7 prior to the procedure and a post-procedure VAS of 1. It has been a pleasure to assist in the diagnostic and therapeutic care of your patient. Total Fluoroscopy Time: 24.8 seconds Total Conscious Sedation Time: 24min POST OP INSTRUCTIONS The patient was provided with a Pain Log to complete over the next several hours and subsequent days prior to the patient's follow up with the ordering physician. If the patient has medical coordinator pesticide use relief to the solution applied, then they may be a candidate for medial branch rhizotomy. The patient is aware, was provided, once again, with a Pain Log and will follow up with the referring physician for review and clinical correlation Lex Malone DO Complications: none
[2019-03-07] MEDS: BUPIVACAINE 0.5% (PF) VIAL 2 ML INJ (14:19)
[2019-03-07] MEDS: LIDOCAINE 1% 20 ML INJ 10 ML INJ (14:19)
[2019-03-07] MEDS: IOPAMIDOL 15 ML VIAL 3 ML INJ (14:19)
[2019-03-07] MEDS: BETAMETHASONE 30 MG/5 ML MDV 12 MG INJ (14:19)
== END 2019-03-07 14:55 | disposition home or self-care (01) ==
PROVIDERS: Family Provider Internal Medicine Cardiovascular Disease; PCP Family Medicine; Visit Provider Physical Medicine & Rehabilitation
DX: M47.817 Spondylosis without myelopathy or radiculopathy, lumbosacral region (principal); M47.816 Spondylosis without myelopathy or radiculopathy, lumbar region
CPT/HCPCS: 64493; 64494; 72110; 99152; J0702; J2250; J3010

== ENCOUNTER → 2019-03-20 12:58 | Outpatient (CLI) | payer MEDICARE, OTHER, SELFPAY ==
[2019-03-20 13:16] LABS: Hematocrit 35.2 % (36-46); Hemoglobin 11.5 g/dL (12.0-16.0)
== END ==
PROVIDERS: Family Provider Internal Medicine Cardiovascular Disease; PCP Family Medicine
DX: N18.3 Chronic kidney disease, stage 3 (moderate) (principal); D63.1 Anemia in chronic kidney disease
CPT/HCPCS: 36415; 85014; 85018

== ENCOUNTER → 2019-04-03 16:29 | Outpatient (CLI) | payer MEDICARE, OTHER, SELFPAY ==
[2019-04-03 17:02] LABS: Hematocrit 33.3 % (36-46); Hemoglobin 11.3 g/dL (12.0-16.0)
[2019-04-03 17:46] LABS: BUN Creatinine Ratio 21.3 (6-22); Blood Urea Nitrogen 34 mg/dL (7-17); Calcium 9.2 mg/dL (8.4-10.2); Carbon Dioxide 22 mmol/L (22-32); Chloride 108 mmol/L (98-107); Estimated Glomerular Filt Rate 30.7 mL/min (>60); Glucose 76 mg/dL (80-110); HEMOLYSIS < 15 (0-50); Potassium 4.9 mmol/L (3.4-5.1); Sodium 139 mmol/L (137-145)
== END ==
PROVIDERS: PCP Family Medicine; Visit Provider Internal Medicine Cardiovascular Disease
DX: R06.09 Other forms of dyspnea (principal); I12.9 Hypertensive chronic kidney disease with stage 1 through stage 4 chronic kidney disease, or unspecified chronic kidney disease; N18.3 Chronic kidney disease, stage 3 (moderate)
CPT/HCPCS: 36415; 80048; 85014; 85018

== ENCOUNTER → 2019-04-04 13:21 | Outpatient (CLI) | payer MEDICARE, OTHER, SELFPAY ==
--- NOTE | 2019-04-04 12:33 | PC.NURSE ---
Patient called at 1130 stating she had CBC drawn yesterday and would like to know whether injection will be given today based on the results. this nurse conferred with Dr. Rodríguez who stated epo shot is being held for Hgb over 11 so patient does not need to come in today. This nurse called patient and gave this information who stated delight that she does not need to come in today.
== END ==
PROVIDERS: PCP Family Medicine
DX: N18.3 Chronic kidney disease, stage 3 (moderate) (principal)

== ENCOUNTER → 2019-04-05 12:20 | Outpatient (CLI) | payer MEDICARE, OTHER, SELFPAY ==
--- NOTE | 2019-04-05 12:23 | DI.US.S_ITS ---
PROCEDURE: US THYROID INDICATIONS: NODULE TECHNIQUE: Real-time scanning was performed of the thyroid gland, with image documentation. COMPARISON: None. FINDINGS: Right: Thyroid lobe measures 5.6 x 1.6 x 1.6 cm, and is homogeneous in echotexture. Left: Thyroid lobe measures 5.7 x 1.5 x 1.6 cm, and is homogenous in echotexture. Isthmus: 1.8 mm thick. Nodule number: 1 Location: Left inferior Size: 1.4 x 0.9 x 1.1 cm. Composition: Solid Echogenicity: Hypoechoic Shape: wider than tall. Margins: Smooth Echogenic foci: None Total points: 4 ACR TI-RADS category: Moderately suspicious Nodule number: 2 Location: Right inferior Size: 1.4 x 0.8 x 1.0 cm. Composition: Predominantly cystic Echogenicity: Anechoic Shape: wider than tall. Margins: Smooth Echogenic foci: None Total points: 0 ACR TI-RADS category: Benign colloid cyst Nodule number: 3 Location: Right min Size: 0.9 x 0.4 x 0.8 cm. Composition: Predominantly cystic Echogenicity: Hypoechoic Shape: wider than tall. Margins: Smooth Echogenic foci: Internal punctate foci. Total points: 5 ACR TI-RADS category: Moderately suspicious IMPRESSION: Bilateral thyroid nodules as above. Recommend continued followup ultrasound as detailed below. ACR TI-RADS definitions and recommendations: TI-RADS 1 (benign): 0 points. FNA not needed. TI-RADS 2 (not suspicious): 2 points. FNA not needed. TI-RADS 3 (mildly suspicious): 3 points. * FNA if 2.5 cm or larger, follow up if 1.5 cm or larger (at 1, 3, and 5 years). TI-RADS 4 (moderately suspicious): 4-6 points. * FNA if 1.5 cm or larger, follow up if 1 cm or larger (at 1, 2, 3, and 5 years). TI-RADS 5 (highly suspicious): 7 points or more. * FNA if 1 cm or larger, follow up if 0.5 cm or larger (every year for 5 years). Dictated by: Terell BNOD Interpreted: Angela Evangelista MD on 04/05/2019 at 16:06 Approved by: Angela Evangelista M.D. on 04/05/2019 at 17:51
== END ==
PROVIDERS: PCP Family Medicine; Visit Provider Family Medicine
DX: E04.2 Nontoxic multinodular goiter (principal)
CPT/HCPCS: 76536

== ENCOUNTER → 2019-04-18 10:29 | Outpatient (CLI) | payer MEDICARE, OTHER, SELFPAY ==
[2019-04-18 11:18] LABS: Add Manual Diff / Slide Review NO; Basophils Absolute Auto 0 /uL (0-100); Eosinophils Absolute Auto 100 /uL (0-450); Eosinophils Percent Auto 1.8 % (2-4); Hematocrit 30.7 % (36-46); Hemoglobin 10.2 g/dL (12.0-16.0); Lymphocytes Absolute Auto 1300 /uL (1100-4500); Lymphocytes Percent Auto 31.2 % (25-40); Mean Corpuscular HGB Conc 33.3 % (30-36); Mean Corpuscular Hemoglobin 30.2 PG (26-34); Mean Corpuscular Volume 90.8 fL (80-100); Monocytes Absolute Auto 500 /uL (0-900); Monocytes Percent Auto 12.3 % (3-14); Neutrophils Absolute Auto 2300 /uL (1500-7000); Neutrophils Percent Auto 53.7 % (50-75); Platelet Count 139 X10^3/uL (150-400); Red Blood Cell Count 3.38 X10^6/uL (4.0-5.2); Red Cell Distribution Width 14.8 % (11.6-14.8); White Blood Cell Count 4.3 X10^3/uL (4.5-11.0)
[2019-04-18 11:35] LABS: Hemoglobin A1C% w Est Avg Glu 5.4 % (4.0-6.0)
[2019-04-18 11:37] LABS: Alanine Aminotransferase 27 IU/L (9-52); Albumin 3.5 g/dL (3.5-5.0); Albumin Globulin Ratio 1.4 (1.0-2.8); Alkaline Phosphatase 41 U/L (38-126); Aspartate Aminotransferase 26 IU/L (14-36); BUN Creatinine Ratio 24.7 (6-22); Bilirubin Total 0.5 mg/dL (0.2-1.3); Blood Urea Nitrogen 37 mg/dL (7-17); Calcium 8.9 mg/dL (8.4-10.2); Carbon Dioxide 27 mmol/L (22-32); Chloride 108 mmol/L (98-107); Estimated Glomerular Filt Rate 33.1 mL/min (>60); Globulin 2.5 g/dL (1.7-4.1); Glucose 110 mg/dL (80-110); HEMOLYSIS < 15 (0-50); Potassium 4.1 mmol/L (3.4-5.1); Sodium 141 mmol/L (137-145)
[2019-04-18 11:58] LABS: Albumin 3.3 g/dL (3.5-5.0); BUN Creatinine Ratio 24.7 (6-22); Blood Urea Nitrogen 37 mg/dL (7-17); Carbon Dioxide 27 mmol/L (22-32); Chloride 108 mmol/L (98-107); Estimated Glomerular Filt Rate 33.1 mL/min (>60); Glucose 114 mg/dL (80-110); HEMOLYSIS < 15 (0-50); Phosphorous 4.2 mg/dL (2.8-4.1); Potassium 5.1 mmol/L (3.4-5.1); Sodium 141 mmol/L (137-145)
[2019-04-18 12:12] LABS: Free T4, Direct Thyroxine 1.87 ng/dL (0.78-2.19)
[2019-04-18 12:26] LABS: Thyroid Stimulating Hormone 3.55 uIU/mL (0.47-4.68)
[2019-04-18 12:31] LABS: Creatinine Urine Random 104.2 mg/dL
[2019-04-18 16:02] LABS: Protein (Total) Urine Random 17 mg/dL (0-12)
== END ==
PROVIDERS: PCP Family Medicine; Visit Provider Student in an Organized Health Care Education/Training Program
DX: N18.3 Chronic kidney disease, stage 3 (moderate) (principal); D63.1 Anemia in chronic kidney disease; E21.1 Secondary hyperparathyroidism, not elsewhere classified; R80.9 Proteinuria, unspecified; R73.9 Hyperglycemia, unspecified; E04.1 Nontoxic single thyroid nodule
CPT/HCPCS: 36415; 80053; 80069; 82570; 83036; 84156; 84439; 84443; 84481; 85025

== ENCOUNTER → 2019-04-18 13:33 | Outpatient (CLI) | payer MEDICARE, OTHER, SELFPAY ==
[2019-04-18 14:08] VITALS: BP 125/60; PULSE 66; RESP 16; TEMP 37.2; O2SAT 98
[2019-04-18] MEDS: DARBEPOETIN 60 MCG/0.3 ML SYRINGE SUBCUT (14:10)
== END ==
PROVIDERS: PCP Family Medicine
DX: N18.3 Chronic kidney disease, stage 3 (moderate) (principal); D63.1 Anemia in chronic kidney disease; E04.1 Nontoxic single thyroid nodule; E21.1 Secondary hyperparathyroidism, not elsewhere classified; R80.9 Proteinuria, unspecified; R73.9 Hyperglycemia, unspecified
CPT/HCPCS: 36415; 80053; 80069; 82310; 82570; 83036; 83970; 84156; 84439; 84443; 84481; 85025; 96372; J0881

== ENCOUNTER → 2019-05-15 13:18 | Outpatient (CLI) | payer MEDICARE, OTHER, SELFPAY ==
[2019-05-15 13:45] LABS: Hematocrit 31.8 % (36-46); Hemoglobin 10.7 g/dL (12.0-16.0)
[2019-05-15 14:31] LABS: Cholesterol 83 mg/dL (140-199); HDL Cholesterol 36 mg/dL (40-60); LDL Cholesterol Calculated 35 mg/dL (<100); Triglycerides 62 mg/dL (35-150)
== END ==
PROVIDERS: PCP Family Medicine; Visit Provider Internal Medicine Cardiovascular Disease
DX: E78.5 Hyperlipidemia, unspecified (principal); N18.3 Chronic kidney disease, stage 3 (moderate)
CPT/HCPCS: 36415; 80061; 85014; 85018

== ENCOUNTER → 2019-05-15 14:18 | Outpatient (CLI) | payer MEDICARE, OTHER, SELFPAY ==
[2019-05-15 14:58] VITALS: BP 100/51; PULSE 70; RESP 16; TEMP 36.9; O2SAT 98
[2019-05-15] MEDS: DARBEPOETIN 60 MCG/0.3 ML SYRINGE SUBCUT (15:01)
== END ==
PROVIDERS: PCP Family Medicine
DX: N18.3 Chronic kidney disease, stage 3 (moderate) (principal); E78.5 Hyperlipidemia, unspecified
CPT/HCPCS: 36415; 80061; 85014; 85018; 96372; J0881

== ENCOUNTER → 2019-05-29 11:08 | Outpatient (CLI) | payer MEDICARE, OTHER, SELFPAY ==
[2019-05-29 11:19] VITALS: BP 152/73; PULSE 69; RESP 16; TEMP 37.1; O2SAT 99
--- NOTE | 2019-05-29 11:42 | ONC.PN ---
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 Previous treatment: Aranesp. She is currently on 60 mg every other week. Interval history: Patient is an 84-year-old woman who returns today for follow-up. She has a history of anemia associated with chronic renal insufficiency. She has been on Aranesp 60 micro g every other week. She notes that she thinks that her shortness of breath might have improved a little bit although not very much. She is able to walk a short period but then needs to stop and rest for few minutes to recover her breathing. She is not having any chest pain. She denies any dizziness or lightheadedness. Her appetite has been fair. No nausea or vomiting. No unusual bleeding or bruising. Her charge entry specialist's had her increase her iron from 1 pill a day to 2 pill a day. She notes that has been causing some GI upset, dark stools and constipation. No fevers chills or sweats. She has not noted any adenopathy. She has not noticed any difficulty with her Aranesp injections. She denies any other changes in her health. Home Medications and Allergies Home Medications Medication Instructions Recorded Confirmed Type Vitamin E (VITAMIN E) 400 units PO QDAY #0 04/17/13 05/29/19 History cyanocobalamin (vitamin B-12) 1,000 mcg PO QDAY #0 07/07/16 05/29/19 History ferrous gluconate 236 mg PO QAM #0 09/08/16 05/29/19 History [PAPAYA ENZYME] 3 tab PO QAM PRN #0 05/18/18 05/29/19 History [CALCIUM/MAG/POTAS.] 1 tab PO QDAY #0 10/27/18 05/29/19 History cholecalciferol (vitamin D3) 2,000 6,000 unit PO DAILY cap 10/27/18 05/29/19 History unit capsule multivitamin tablet 1 tab PO QDAY #0 tab 10/27/18 05/29/19 History potassium chloride ER 20 mEq 20 meq PO DAILY 01/12/19 05/29/19 History tablet,extended release amlodipine [Norvasc] 5 mg PO BID 02/21/19 05/29/19 History lisinopril 10 mg PO DAILY 02/21/19 05/29/19 History atorvastatin 20 mg tablet 20 mg PO DAILY 04/27/19 05/29/19 History carvedilol 12.5 mg tablet 25 mg PO BID tab 04/27/19 05/29/19 History oxycodone-acetaminophen 7.5 mg-325 1 tab PO BID PRN #60 tab 05/09/19 05/29/19 Rx mg tablet Allergies Allergy/AdvReac Type Severity Reaction Status Date / Time belladonna alkaloids Allergy Severe severe Verified 04/27/19 15:20 [From BELLERGAL-S] swelling and itching ergotamine [From BELLERGAL-S] Allergy Severe severe Verified 04/27/19 15:20 swelling and itching phenobarbital Allergy Severe severe Verified 04/27/19 15:20 [From BELLERGAL-S] swelling and itching shellfish derived AdvReac Severe ill, n/v Verified 04/27/19 15:20 [SHELLFISH DERIVED] Exam Vital signs: Vital Signs Temp Pulse Resp BP Pulse Ox 05/29/19 11:19 98.7 F 69 16 152/73 H 99 Intake and Output 05/28/19 05/29/19 05/29/19 23:59 07:59 15:59 Other: Weight 61.5 kg Patient Weight 05/29/19 23:59 Weight 61.5 kg - Constitutional positive no acute distress, positive average body habitus - Routine HEENT Exam Head: Present: normocephalic, atraumatic Eye: Present: EOMI, PERRL. Absent: conjunctival icterus, scleral injection ENT: Present: mucous membranes moist, oropharynx clear - Routine Neck Exam Present: supple. Absent: lymphadenopathy, thyromegaly - Routine Respiratory Exam Present: Clear to auscultation bilaterally. Absent: rales, wheezes - Routine Cardiovascular Exam Present: RRR, S1, S2. Absent: murmur - Routine Abdominal Exam Present: soft, normoactive bowel sounds. Absent: tenderness, organomegaly, mass - Routine Extremities Exam Absent: cyanosis, clubbing, edema - Routine Skin Exam Present: intact. Absent: petechiae, rash - Routine Neurological Exam Present: alert, oriented X3 - Routine Psychiatric Exam Present: normal affect, normal thought process Results - Imaging Additional studies: Procedures Repair of entropion or ectropion with lid reconstruction (06/27/13) Assessment and Plan (1) Anemia in stage 3 chronic kidney disease Problem details: 83-year-old woman with renal insufficiency and a moderate normocytic anemia. She has been tolerating Aranesp well and her hemoglobin has improved. She will continue with Aranesp. Her hemoglobin has dropped a little bit on every 3 week dosing. Will go back to every other week. She will return to clinic in about 3 months for follow-up. Current visit: No Status: Chronic 84-year-old woman with chronic renal insufficiency. She has been stable on Aranesp with an improvement in her red cell count. She will continue with 60 micro g every other week but hold it for hemoglobin over 11. She will return to clinic in about 3-4 months for follow-up.
== END ==
PROVIDERS: PCP Family Medicine
DX: N18.3 Chronic kidney disease, stage 3 (moderate) (principal); D63.1 Anemia in chronic kidney disease
CPT/HCPCS: 99214

== ENCOUNTER → 2019-06-13 10:52 | Outpatient (CLI) | payer MEDICARE, OTHER, SELFPAY ==
[2019-06-13 11:11] LABS: Hematocrit 34.6 % (36-46); Hemoglobin 11.3 g/dL (12.0-16.0)
== END ==
PROVIDERS: Family Provider Family Medicine; PCP Family Medicine
DX: N18.3 Chronic kidney disease, stage 3 (moderate) (principal)
CPT/HCPCS: 36415; 85014; 85018

== ENCOUNTER → 2019-07-06 13:27 | Outpatient (CLI) | payer MEDICARE, OTHER, SELFPAY ==
[2019-07-06 14:25] LABS: Hematocrit 32.2 % (36-46); Hemoglobin 10.9 g/dL (12.0-16.0)
[2019-07-06 15:08] LABS: HEMOLYSIS < 15 (0-50); Iron 95 ug/dL (37-170); Sodium 142 mmol/L (137-145)
[2019-07-06 15:09] LABS: BUN Creatinine Ratio 25.7 (6-22); Blood Urea Nitrogen 36 mg/dL (7-17); Calcium 9.6 mg/dL (8.4-10.2); Carbon Dioxide 26 mmol/L (22-32); Chloride 106 mmol/L (98-107); Estimated Glomerular Filt Rate 35.8 mL/min (>60); Glucose 106 mg/dL (80-110); Potassium 5.1 mmol/L (3.4-5.1)
[2019-07-06 15:18] LABS: Percent Iron Saturation 37 % (15-50); Total Iron Binding Capacity 258 ug/dL (265-497); Transferrin 205 mg/dL (206-381)
[2019-07-06 15:25] LABS: Free T4, Direct Thyroxine 1.32 ng/dL (0.78-2.19)
[2019-07-06 15:39] LABS: Thyroid Stimulating Hormone 1.08 uIU/mL (0.47-4.68)
[2019-07-06 15:47] LABS: Vitamin D 25 Hydroxy (D3) 45.6 ng/mL (30.0-100.0)
== END ==
PROVIDERS: PCP Family Medicine; Visit Provider Student in an Organized Health Care Education/Training Program
DX: E04.2 Nontoxic multinodular goiter (principal); I50.32 Chronic diastolic (congestive) heart failure; D50.0 Iron deficiency anemia secondary to blood loss (chronic); D64.9 Anemia, unspecified; N25.81 Secondary hyperparathyroidism of renal origin; E21.3 Hyperparathyroidism, unspecified
CPT/HCPCS: 36415; 80048; 82306; 82728; 83540; 83550; 83970; 84439; 84443; 85014; 85018

== ENCOUNTER 2019-07-17 15:15 | Outpatient (RCR) | payer MEDICARE, OTHER, SELFPAY ==
--- NOTE | 2019-05-24 18:50 | PT.OIE ---
Current Diagnoses Other chronic pain (05/24/19) Other spondylosis with radiculopathy, thoracic region (05/24/19) Spondylosis without myelopathy or radiculopathy, lumbosacral region (05/24/19) Pain in thoracic spine (05/24/19) Difficulty in walking, not elsewhere classified (05/24/19) Abnormal posture (05/24/19) Weakness (05/24/19) Past Medical History (Last Reviewed 04/27/19 @ 16:05 by Zarina Herrera DO) Arthritis (Chronic Unknown) CKD (chronic kidney disease) (Chronic Unknown) Diverticulitis (Chronic Unknown) Hyperlipemia (Chronic Unknown) Hypertension (Chronic Unknown) Actinic keratosis (Resolved ~03/2017) 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) Past Surgical History (Last Reviewed 04/27/19 @ 16:05 by Zarina Herrera DO) History of rectocele (Resolved Unknown) S/P laminectomy (Resolved 12/2017) History of breast augmentation Status post hysterectomy Status post loop electrosurgical excision procedure (LEEP) of cervix (11/12/16) Provider Visit Care Team Role Provider Type Zarina Herrera DO Primary Care Provider Physician Specialty: Family Practice Address: [address] [place] [address] Email: [email or web address] Curly Rodríguez MD Family Provider Physician Specialty: Oncology Address: [address] [place] [address] Email: Lex Malone DO Attending Provider Physician Specialty: Physiatry Pain Management Address: [address] [place] [address] Email: Physical Therapy Initial Evaluation PT-OP-A Visit Information Start: 05/24/19 07:23 Freq: Status: Active Protocol: Document 05/24/19 16:57 AR (Rec: 05/24/19 18:05 AR [email or web address]) Out-Patient Physical Therapy Visit Information Visit Information Visit Type Initial Evaluation Visit Start Time 15:20 Visit Stop Time 16:15 Total Visit Minutes 55 Visit Number 1 Number of ASSET PROTECTION DETECTIVE Visits 0 PT-OP-B Current Condition Start: 05/24/19 07:23 Freq: Status: Active Protocol: Document 05/24/19 16:57 AR (Rec: 05/24/19 18:05 AR [email or web address]) Current Condition History of Current Condition Onset Date 2016 Current Complaints L/S, T/S, C/S pain, shortness of breath History of Current Condition Pain in back started a few years ago. Pt has also started feeling short of breath and needs to take rest breaks to catch her breath after a few steps. pt has also recently been experiencing painful cramping in her legs. Prior Treatments and Tests Pt has hx of L4/5 laminectomy and L knee replacement (susan- TKA). She stated that during L /S surgery, the dura was cut and she had to undergo tx for that (lying flat). She has received injections in her L/S and her pain management doctor has discussed a dorsal rhizotomy as a futher treatment option. She has received PT for her L/S previously and stated that overall it did not help much, but massage and e-stim/TENS did help pain. Treatment Goals Patient/Caregiver Goals Be able to go out shopping, to shows, etc without needing to stop d/t back pain or to catch breath. Prior Functional Status Baseline Function- ADL's Independent Baseline Function- Mobility Independent Baseline Function- Gait able to walk w/o SOB or pain Baseline Function- Recreation/Hobbies able to go shopping with her sister w/o SOB or pain Baseline Function- Other pt is unable to vacuum, but does light sweeping and dusting w/o pain or SOB Current Functional Impairments (Reported) Functional Limitations- ADL's unable to stand to cook longer than 30 minutes w/o taking a seated break. Functional Limitations- Mobility/Gait unable to walk to mailbox w/o feeling SOB PT-OP-C Subjective Start: 05/24/19 07:23 Freq: Status: Active Protocol: Document 05/24/19 16:57 AR (Rec: 05/24/19 18:05 AR [email or web address]) OP-PT Subjective Patient Comments Patient Comments Pt reports that standing or sitting for too long aggrevate her back. Laying flat (in supine) eases her pain. She also uses heat, aspercream and biofreeze which help. OP-PT Pain Assessment Pain Assessment Grid Paper Pain Assessment Grid Completed Yes: L knee, B L/S, R inferior scapula/T/S, midline C/S Location back Pain Location Details T/S, L/S Scale Used Numeric (1 - 10) Description Sharp Frequency Frequent Radiating Location L thigh, L lateral leg numb Pain Aggravating Factors Position Changing Position ADL's Activity Standing Sitting Walking Bending Pain Alleviating Factors Heat Lying Supine Massage Changing Position Other Pain Alleviating Factors biofreeze, TENS Patient Stated Pain Goal be able to go out in community w/o pain during walking PT-OP-K Range of Motion Start: 05/24/19 07:23 Freq: Status: Active Protocol: Document 05/24/19 16:57 AR (Rec: 05/24/19 18:05 AR [email or web address]) Lumbar Spine Range of Motion Lumbar Spine Active Testing Position Standing Flexion 75 Extension 15 Rotation Left 75 Rotation Right 50 Lateral Flexion Left 50 Lateral Flexion Right 25 ROM Limitations Pain Comments ROM in %. Pt reported sharp pain with R side bending and pull with R rotation. Most flexion from T/S, limited ext in L/S and T/S. Pt was able to acheive more ROM into flexion on second attempt. PT-OP-M Strength Start: 05/24/19 07:23 Freq: Status: Active Protocol: Document 05/24/19 16:57 AR (Rec: 05/24/19 18:05 AR [email or web address]) Hip Strength Hip Manual Muscle Testing Left Flexion (L2) 4 Good External Rotation 4- Good- Internal Rotation 4- Good- Right Flexion (L2) 4 Good External Rotation 4- Good- Internal Rotation 4- Good- Comments Pt reported pull in L hip during IR testing Knee Strength Knee Manual Muscle Testing Left Flexion (S2) 4- Good- Extension (L3) 4 Good Right Flexion (S2) 4 Good Extension (L3) 4 Good Ankle/Foot Strength Ankle and Foot Manual Muscle Testing Left Dorsiflexion (L4) 4- Good- Plantarflexion (S1) 4+ Good+ Right Dorsiflexion (L4) 4 Good Plantarflexion (S1) 4 Good PT-OP-Q Treatments Start: 05/24/19 07:23 Freq: Status: Active Protocol: Document 05/24/19 16:57 AR (Rec: 05/24/19 18:05 AR [email or web address]) Therapeutic Exercises Supine Exercises pelvic tilt Supine Exercise Name pelvic tilt Side bilateral Reps/Minutes 10 SKTC Supine Exercise Name SKTC Side bilateral Reps/Minutes 2x30 seconds Comments contralateral leg bent with foot on table Self-Care/Home Management Treatment Education Patient Education Pain Management Other Education breathing techniques for SOB, log roll for supine<>sit, sit< >supine PT-OP-R Modalities Start: 05/24/19 07:23 Freq: Status: Active Protocol: Document 05/24/19 16:57 AR (Rec: 05/24/19 18:05 AR [email or web address]) Hot Pack/Cold Pack Treatment Hot Pack Location L/S Patient Position Supine Treatment Duration (minutes) 15 Patient Tolerance Good PT-OP-T Assessment and Plan Start: 05/24/19 07:23 Freq: Status: Active Protocol: Document 05/24/19 16:57 AR (Rec: 05/24/19 18:05 AR [email or web address]) Physical Therapy Assessment Rehab Potential Rehabilitation Potential Good Evaluation Complexity Number of Personal Factors/Comorbidities 3 or More Number of Body Systems Impaired 4 or More Clinical Presentation at Evaluation Evolving Impairments Impairments Activity Tolerance Balance Functional Activities Functional Mobility Pain Posture ROM Sensation Soft Tissue Mobility Strength Goals Strength Short Term Goal (STG) Pt will be independent with HEP. STG Duration 06/24/2019 Instrument Operator Goal (LTG) Pt will be able to stand for cooking and household tasks for 1 hour w/o SOB or inc in LBP greater than 2 points in VAS scale. LTG Duration 07/25/2019 Gait Short Term Goal (STG) Pt will be able to participate in the 6MWT in order to quanitfy fall risk and dec likelihood of fall with inc walking speed and distance. STG Duration 06/24/2019 Detention Goal (LTG) Pt will be able to walk distance required to participate in community events w/o SOB or inc in LBP greater than 2 points in VAS scale. LTG Duration 07/25/2019 Breathing Short Term Goal (STG) Pt will demonstrate proper pursed lip breathing. STG Duration 06/24/2019 Instrument Operator Goal (LTG) Pt will utilize pursed lip breathing during activity. LTG Duration 07/25/2019 Assessment Summary Assessment Pt's ADLs and recreational activities are limited by her SOB, T/S, and L/S pain. Treatment to focus on general cardiovascular and strength training, education on posture and breathing techniques. Pt will benefit from strength and balance training in order to decrease her fall risk and inc independence with ADLs and community amb. Physical Therapy Plan Frequency and Duration Frequency of Treatment 2x/Week Duration of Treatment 2 months Plan of Care Start Date 05/24/19 Plan of Care End Date 07/25/19 Therapeutic Interventions Therapeutic Interventions Balance Training Gait Training Home Exercise Program Joint Mobilizations Manual Therapy Neuromuscular Re-education Patient/Caregiver Education Self-Care/Home Management Soft Tissue Mobilization Taping Therapeutic Activities Therapeutic Exercises Modalities Cold Pack/Ice Massage Electric Stimulation Hot Packs Next Visit Focus/Plan Next Note Type Treatment Note Next Visit Plan assess and quantify balance/ fall risk. push and release test to assess reactive balance. Inc HEP if appropriate
--- NOTE | 2019-05-24 18:50 | PT.OPPOC ---
Current Diagnoses Other chronic pain (05/24/19) Other spondylosis with radiculopathy, thoracic region (05/24/19) Spondylosis without myelopathy or radiculopathy, lumbosacral region (05/24/19) Pain in thoracic spine (05/24/19) Difficulty in walking, not elsewhere classified (05/24/19) Abnormal posture (05/24/19) Weakness (05/24/19) Provider Visit Care Team Role Provider Type Zarina Herrera DO Primary Care Provider Physician Specialty: Family Practice Address: [address] [place] [id number] Email: [email or web address] Curly Rodríguez MD Family Provider Physician Specialty: Oncology Address: [address] [place] [address] Email: Lex Malone DO Attending Provider Physician Specialty: Physiatry Pain Management Address: [address] [place] [id number] Email: Plan Of Care PT-OP-T Assessment and Plan Start: 05/24/19 07:23 Freq: Status: Active Protocol: Document 05/24/19 16:57 AR (Rec: 05/24/19 18:05 AR [email or web address]) Physical Therapy Assessment Rehab Potential Rehabilitation Potential Good Evaluation Complexity Number of Personal Factors/Comorbidities 3 or More Number of Body Systems Impaired 4 or More Clinical Presentation at Evaluation Evolving Impairments Impairments Activity Tolerance Balance Functional Activities Functional Mobility Pain Posture ROM Sensation Soft Tissue Mobility Strength Goals Strength Short Term Goal (STG) Pt will be independent with HEP. STG Duration 06/24/2019 Fpc Goal (LTG) Pt will be able to stand for cooking and household tasks for 1 hour w/o SOB or inc in LBP greater than 2 points in VAS scale. LTG Duration 07/25/2019 Gait Short Term Goal (STG) Pt will be able to participate in the 6MWT in order to quanitfy fall risk and dec likelihood of fall with inc walking speed and distance. STG Duration 06/24/2019 Fpc Goal (LTG) Pt will be able to walk distance required to participate in community events w/o SOB or inc in LBP greater than 2 points in VAS scale. LTG Duration 07/25/2019 Breathing Short Term Goal (STG) Pt will demonstrate proper pursed lip breathing. STG Duration 06/24/2019 Fpc Goal (LTG) Pt will utilize pursed lip breathing during activity. LTG Duration 07/25/2019 Assessment Summary Assessment Pt's ADLs and recreational activities are limited by her SOB, T/S, and L/S pain. Treatment to focus on general cardiovascular and strength training, education on posture and breathing techniques. Pt will benefit from strength and balance training in order to decrease her fall risk and inc independence with ADLs and community amb. Physical Therapy Plan Frequency and Duration Frequency of Treatment 2x/Week Duration of Treatment 2 months Plan of Care Start Date 05/24/19 Plan of Care End Date 07/25/19 Therapeutic Interventions Therapeutic Interventions Balance Training Gait Training Home Exercise Program Joint Mobilizations Manual Therapy Neuromuscular Re-education Patient/Caregiver Education Self-Care/Home Management Soft Tissue Mobilization Taping Therapeutic Activities Therapeutic Exercises Modalities Cold Pack/Ice Massage Electric Stimulation Hot Packs Next Visit Focus/Plan Next Note Type Treatment Note Next Visit Plan assess and quantify balance/ fall risk. push and release test to assess reactive balance. Inc HEP if appropriate Plan of Care Dates Plan of Care Start Date 05/24/19 Plan of Care End Date 07/25/19 Please Sign and Return: I have reviewed this Plan of Care and certify that the skilled therapy services above are required to meet the patient?s needs. Physician Signature Date Printed Name and Credentials Clinical Instructor Signature Printed Name and Credentials
--- NOTE | 2019-06-11 18:58 | PT.OTN ---
Current Diagnoses Other chronic pain (06/11/19) Other spondylosis with radiculopathy, thoracic region (06/11/19) Spondylosis without myelopathy or radiculopathy, lumbosacral region (06/11/19) Pain in thoracic spine (06/11/19) Difficulty in walking, not elsewhere classified (06/11/19) Abnormal posture (06/11/19) Weakness (06/11/19) Physical Therapy Treatment Note PT-OP-A Visit Information Start: 05/24/19 07:23 Freq: Status: Active Protocol: Document 06/11/19 17:57 AR (Rec: 06/11/19 18:12 AR [email or web address]) Out-Patient Physical Therapy Visit Information Visit Information Visit Type Treatment Note Visit Start Time 16:05 Visit Stop Time 17:00 Total Visit Minutes 55 Visit Number 2 Number of DIAMOND WHEEL EDGER Visits 0 PT-OP-B Current Condition Start: 05/24/19 07:23 Freq: Status: Active Protocol: Document 05/24/19 16:57 AR (Rec: 05/24/19 18:05 AR [email or web address]) Current Condition History of Current Condition Onset Date 2016 Current Complaints L/S, T/S, C/S pain, shortness of breath History of Current Condition Pain in back started a few years ago. Pt has also started feeling short of breath and needs to take rest breaks to catch her breath after a few steps. pt has also recently been experiencing painful cramping in her legs. Prior Treatments and Tests Pt has hx of L4/5 laminectomy and L knee replacement (susan- TKA). She stated that during L /S surgery, the dura was cut and she had to undergo tx for that (lying flat). She has received injections in her L/S and her pain management doctor has discussed a dorsal rhizotomy as a futher treatment option. She has received PT for her L/S previously and stated that overall it did not help much, but massage and e-stim/TENS did help pain. Treatment Goals Patient/Caregiver Goals Be able to go out shopping, to shows, etc without needing to stop d/t back pain or to catch breath. Prior Functional Status Baseline Function- ADL's Independent Baseline Function- Mobility Independent Baseline Function- Gait able to walk w/o SOB or pain Baseline Function- Recreation/Hobbies able to go shopping with her sister w/o SOB or pain Baseline Function- Other pt is unable to vacuum, but does light sweeping and dusting w/o pain or SOB Current Functional Impairments (Reported) Functional Limitations- ADL's unable to stand to cook longer than 30 minutes w/o taking a seated break. Functional Limitations- Mobility/Gait unable to walk to mailbox w/o feeling SOB PT-OP-C Subjective Start: 05/24/19 07:23 Freq: Status: Active Protocol: Document 06/11/19 17:57 AR (Rec: 06/11/19 18:12 AR [email or web address]) OP-PT Subjective Patient Comments Patient Comments Pt reports breathing technique has helped her catch her breath, but she is still having SOB. Pt reports some pain with HEP stretches. PT-OP-K Range of Motion Start: 05/24/19 07:23 Freq: Status: Active Protocol: Document 05/24/19 16:57 AR (Rec: 05/24/19 18:05 AR [email or web address]) Lumbar Spine Range of Motion Lumbar Spine Active Testing Position Standing Flexion 75 Extension 15 Rotation Left 75 Rotation Right 50 Lateral Flexion Left 50 Lateral Flexion Right 25 ROM Limitations Pain Comments ROM in %. Pt reported sharp pain with R side bending and pull with R rotation. Most flexion from T/S, limited ext in L/S and T/S. Pt was able to acheive more ROM into flexion on second attempt. PT-OP-M Strength Start: 05/24/19 07:23 Freq: Status: Active Protocol: Document 05/24/19 16:57 AR (Rec: 05/24/19 18:05 AR [email or web address]) Hip Strength Hip Manual Muscle Testing Left Flexion (L2) 4 Good External Rotation 4- Good- Internal Rotation 4- Good- Right Flexion (L2) 4 Good External Rotation 4- Good- Internal Rotation 4- Good- Comments Pt reported pull in L hip during IR testing Knee Strength Knee Manual Muscle Testing Left Flexion (S2) 4- Good- Extension (L3) 4 Good Right Flexion (S2) 4 Good Extension (L3) 4 Good Ankle/Foot Strength Ankle and Foot Manual Muscle Testing Left Dorsiflexion (L4) 4- Good- Plantarflexion (S1) 4+ Good+ Right Dorsiflexion (L4) 4 Good Plantarflexion (S1) 4 Good PT-OP-Q Treatments Start: 05/24/19 07:23 Freq: Status: Active Protocol: Document 06/11/19 17:57 AR (Rec: 06/11/19 18:12 AR [email or web address]) Cardio Equipment Recumbent Elliptical (Biodex) Duration (Minutes) 7 Resistance 1 Seat Position 4 Other pt cued on breathing during exercise, O2 sat at 98 after exercise Therapeutic Exercises Supine Exercises pelvic tilt Supine Exercise Name pelvic tilt Reps/Minutes 10 Comments ant & post, 30 sec hold in post SKTC Supine Exercise Name SKTC Side bilateral Reps/Minutes 2x30 seconds Comments pt cued to pull post thigh rather than knee to avoid pain Standing Exercises Gastroc Stretch Standing Exercise Name calf stretch Side bilateral Equipment Used none Reps/Minutes 2x30 sec Comments added to HEP Manual Therapy Treatment Soft Tissue Mobilization Paraspinals Body Location R side T/S, L/S Mobilization Type Myofascial Release Rolling Intensity/Depth Superficial Body Position Sidelying Comments pt very tender to palpation. noted a ball on R side near T9 Self-Care/Home Management Treatment Education Patient Education Fall Risk Other Education home tripping hazards. pt reports multiple falls within this year and is receptive to practicing balance and attending [employer] or exercise classes to work on her balance PT-OP-R Modalities Start: 05/24/19 07:23 Freq: Status: Active Protocol: Document 06/11/19 17:57 AR (Rec: 06/11/19 18:12 AR [email or web address]) Electric Stimulation Electric Stimulation Interferential Current (IFC) Body Location L/S Duration (Minutes) 15 Intensity 20 Combined With Heat/Cold Hot Pack PT-OP-T Assessment and Plan Start: 05/24/19 07:23 Freq: Status: Active Protocol: Document 06/11/19 17:57 AR (Rec: 06/11/19 18:12 AR [email or web address]) Physical Therapy Assessment Goals Strength Short Term Goal (STG) Pt will be independent with HEP. STG Duration 06/24/2019 Fci Goal (LTG) Pt will be able to stand for cooking and household tasks for 1 hour w/o SOB or inc in LBP greater than 2 points in VAS scale. LTG Duration 07/25/2019 Gait Short Term Goal (STG) Pt will be able to participate in the 6MWT in order to quanitfy fall risk and dec likelihood of fall with inc walking speed and distance. STG Duration 06/24/2019 [facility] Goal (LTG) Pt will be able to walk distance required to participate in community events w/o SOB or inc in LBP greater than 2 points in VAS scale. LTG Duration 07/25/2019 Breathing Short Term Goal (STG) Pt will demonstrate proper pursed lip breathing. STG Duration 06/24/2019 Java Systems Analyst Goal (LTG) Pt will utilize pursed lip breathing during activity. LTG Duration 07/25/2019 Assessment Summary Assessment Pt was able to tolerate 7 minutes on recumbent stepper without significant SOB and O2 sat was WNL. Pt demonstrates dec core stability and still has some difficulty maintaining posterior pelvic tilt. Pt has an interest in [employer] and yoga but has not started d/t SOB symptoms. Pt was educated on local programs and encouraged to look into them. Pt educated on home fall risks and seemed receptive to balance training. Physical Therapy Plan Frequency and Duration Frequency of Treatment 2x/Week Duration of Treatment 2 months Plan of Care Start Date 05/24/19 Plan of Care End Date 07/25/19 Next Visit Focus/Plan Next Note Type Treatment Note Next Visit Plan inc HEP, incorporate balance work
--- NOTE | 2019-06-13 18:36 | PT.OTN ---
Current Diagnoses Other chronic pain (06/13/19) Other spondylosis with radiculopathy, thoracic region (06/13/19) Spondylosis without myelopathy or radiculopathy, lumbosacral region (06/13/19) Pain in thoracic spine (06/13/19) Difficulty in walking, not elsewhere classified (06/13/19) Abnormal posture (06/13/19) Weakness (06/13/19) Physical Therapy Treatment Note PT-OP-A Visit Information Start: 05/24/19 07:23 Freq: Status: Active Protocol: Document 06/13/19 13:31 AR (Rec: 06/13/19 13:44 AR [email or web address]) Out-Patient Physical Therapy Visit Information Visit Information Visit Type Treatment Note Visit Start Time 11:20 Visit Stop Time 12:15 Total Visit Minutes 55 Visit Number 3 Number of BRACELET FORMER Visits 0 PT-OP-B Current Condition Start: 05/24/19 07:23 Freq: Status: Active Protocol: Document 05/24/19 16:57 AR (Rec: 05/24/19 18:05 AR [email or web address]) Current Condition History of Current Condition Onset Date 2016 Current Complaints L/S, T/S, C/S pain, shortness of breath History of Current Condition Pain in back started a few years ago. Pt has also started feeling short of breath and needs to take rest breaks to catch her breath after a few steps. pt has also recently been experiencing painful cramping in her legs. Prior Treatments and Tests Pt has hx of L4/5 laminectomy and L knee replacement (susan- TKA). She stated that during L /S surgery, the dura was cut and she had to undergo tx for that (lying flat). She has received injections in her L/S and her pain management doctor has discussed a dorsal rhizotomy as a futher treatment option. She has received PT for her L/S previously and stated that overall it did not help much, but massage and e-stim/TENS did help pain. Treatment Goals Patient/Caregiver Goals Be able to go out shopping, to shows, etc without needing to stop d/t back pain or to catch breath. Prior Functional Status Baseline Function- ADL's Independent Baseline Function- Mobility Independent Baseline Function- Gait able to walk w/o SOB or pain Baseline Function- Recreation/Hobbies able to go shopping with her sister w/o SOB or pain Baseline Function- Other pt is unable to vacuum, but does light sweeping and dusting w/o pain or SOB Current Functional Impairments (Reported) Functional Limitations- ADL's unable to stand to cook longer than 30 minutes w/o taking a seated break. Functional Limitations- Mobility/Gait unable to walk to mailbox w/o feeling SOB PT-OP-C Subjective Start: 05/24/19 07:23 Freq: Status: Active Protocol: Document 06/13/19 13:31 AR (Rec: 06/13/19 13:44 AR [email or web address]) OP-PT Subjective Patient Comments Patient Comments Pt reports a pain in her mid T /S on the R side today. She had relief after last week's manual work and heat, but did report a tingling/zinging sensation in her R lateral calf. She has been compliant with HEP. Pt reports wanting to work on better posture and being able to stand up straighter. PT-OP-K Range of Motion Start: 05/24/19 07:23 Freq: Status: Active Protocol: Document 05/24/19 16:57 AR (Rec: 05/24/19 18:05 AR [email or web address]) Lumbar Spine Range of Motion Lumbar Spine Active Testing Position Standing Flexion 75 Extension 15 Rotation Left 75 Rotation Right 50 Lateral Flexion Left 50 Lateral Flexion Right 25 ROM Limitations Pain Comments ROM in %. Pt reported sharp pain with R side bending and pull with R rotation. Most flexion from T/S, limited ext in L/S and T/S. Pt was able to acheive more ROM into flexion on second attempt. PT-OP-M Strength Start: 05/24/19 07:23 Freq: Status: Active Protocol: Document 05/24/19 16:57 AR (Rec: 05/24/19 18:05 AR [email or web address]) Hip Strength Hip Manual Muscle Testing Left Flexion (L2) 4 Good External Rotation 4- Good- Internal Rotation 4- Good- Right Flexion (L2) 4 Good External Rotation 4- Good- Internal Rotation 4- Good- Comments Pt reported pull in L hip during IR testing Knee Strength Knee Manual Muscle Testing Left Flexion (S2) 4- Good- Extension (L3) 4 Good Right Flexion (S2) 4 Good Extension (L3) 4 Good Ankle/Foot Strength Ankle and Foot Manual Muscle Testing Left Dorsiflexion (L4) 4- Good- Plantarflexion (S1) 4+ Good+ Right Dorsiflexion (L4) 4 Good Plantarflexion (S1) 4 Good PT-OP-Q Treatments Start: 05/24/19 07:23 Freq: Status: Active Protocol: Document 06/13/19 13:31 AR (Rec: 06/13/19 13:44 AR [email or web address]) Cardio Equipment Recumbent Elliptical (Biodex) Duration (Minutes) 7 Resistance 1 Seat Position 6 Other pt tolerated well and was able to maintain conversation during exercise Therapeutic Exercises Prone Exercises Cat/Camel Prone Exercise Name cat/camel at raised table Equipment Used high table (for hands) Reps/Minutes 20 rounds Comments heavy verbal and manual cueing for thoracic mobility Manual Therapy Treatment Soft Tissue Mobilization Paraspinals Mobilization Type Myofascial Release Oscillations Intensity/Depth Superficial Comments pt very tender to palpation. was able to tolerate deeper pressure after manual therapy Joint Mobilizations T/S Joint general thoracic T3-T10 Direction PA Grade I Body Position Sidelying Comments pt tolerated well. showed inc in T/S ext after mobilizations Neuro Re-Education Treatment Balance Activities Shuttle Board Details blue clips Reps/Duration 4 min Comments static stance, eyes closed. Self-Care/Home Management Treatment Education Patient Education Posture Other Education pt unable to isolate thoracic movement. focus on gaining T/S mobility before progressing postural training PT-OP-R Modalities Start: 05/24/19 07:23 Freq: Status: Active Protocol: Document 06/13/19 13:31 AR (Rec: 06/13/19 13:44 AR [email or web address]) Electric Stimulation Electric Stimulation Interferential Current (IFC) Body Location L/S Duration (Minutes) 15 Intensity 18 Combined With Heat/Cold Hot Pack PT-OP-T Assessment and Plan Start: 05/24/19 07:23 Freq: Status: Active Protocol: Document 06/13/19 13:31 AR (Rec: 06/13/19 13:44 AR [email or web address]) Physical Therapy Assessment Goals Strength Short Term Goal (STG) Pt will be independent with HEP. STG Duration 06/24/2019 Cement Mason Goal (LTG) Pt will be able to stand for cooking and household tasks for 1 hour w/o SOB or inc in LBP greater than 2 points in VAS scale. LTG Duration 07/25/2019 Gait Short Term Goal (STG) Pt will be able to participate in the 6MWT in order to quanitfy fall risk and dec likelihood of fall with inc walking speed and distance. STG Duration 06/24/2019 Retirement Goal (LTG) Pt will be able to walk distance required to participate in community events w/o SOB or inc in LBP greater than 2 points in VAS scale. LTG Duration 07/25/2019 Breathing Short Term Goal (STG) Pt will demonstrate proper pursed lip breathing. STG Duration 06/24/2019 Cement Mason Goal (LTG) Pt will utilize pursed lip breathing during activity. LTG Duration 07/25/2019 Assessment Summary Assessment Pt's T/S hypomobility may be contributing to pain in L/S as well as symptoms of SOB. Pt is interested in postural work , but T/S mobility must be addressed first. Pt has been able to demonstrate pursed lip breathing during ther ex today but still reports SOB during daily activities. Physical Therapy Plan Frequency and Duration Frequency of Treatment 2x/Week Duration of Treatment 2 months Plan of Care Start Date 05/24/19 Plan of Care End Date 07/25/19 Next Visit Focus/Plan Next Note Type Treatment Note Next Visit Plan inc balance training, progress T/S mobility exercises and work on posture if appropriate
--- NOTE | 2019-06-20 18:52 | PT.OTN ---
Current Diagnoses Other chronic pain (06/20/19) Other spondylosis with radiculopathy, thoracic region (06/20/19) Spondylosis without myelopathy or radiculopathy, lumbosacral region (06/20/19) Pain in thoracic spine (06/20/19) Difficulty in walking, not elsewhere classified (06/20/19) Abnormal posture (06/20/19) Weakness (06/20/19) Physical Therapy Treatment Note PT-OP-A Visit Information Start: 05/24/19 07:23 Freq: Status: Active Protocol: Document 06/20/19 18:59 AR (Rec: 06/20/19 19:15 AR [email or web address]) Out-Patient Physical Therapy Visit Information Visit Information Visit Type Treatment Note Visit Start Time 17:35 Visit Stop Time 18:35 Total Visit Minutes 60 Visit Number 4 Number of PREPARATORY TECHNICIAN Visits 0 PT-OP-B Current Condition Start: 05/24/19 07:23 Freq: Status: Active Protocol: Document 05/24/19 16:57 AR (Rec: 05/24/19 18:05 AR [email or web address]) Current Condition History of Current Condition Onset Date 2016 Current Complaints L/S, T/S, C/S pain, shortness of breath History of Current Condition Pain in back started a few years ago. Pt has also started feeling short of breath and needs to take rest breaks to catch her breath after a few steps. pt has also recently been experiencing painful cramping in her legs. Prior Treatments and Tests Pt has hx of L4/5 laminectomy and L knee replacement (susan- TKA). She stated that during L /S surgery, the dura was cut and she had to undergo tx for that (lying flat). She has received injections in her L/S and her pain management doctor has discussed a dorsal rhizotomy as a futher treatment option. She has received PT for her L/S previously and stated that overall it did not help much, but massage and e-stim/TENS did help pain. Treatment Goals Patient/Caregiver Goals Be able to go out shopping, to shows, etc without needing to stop d/t back pain or to catch breath. Prior Functional Status Baseline Function- ADL's Independent Baseline Function- Mobility Independent Baseline Function- Gait able to walk w/o SOB or pain Baseline Function- Recreation/Hobbies able to go shopping with her sister w/o SOB or pain Baseline Function- Other pt is unable to vacuum, but does light sweeping and dusting w/o pain or SOB Current Functional Impairments (Reported) Functional Limitations- ADL's unable to stand to cook longer than 30 minutes w/o taking a seated break. Functional Limitations- Mobility/Gait unable to walk to mailbox w/o feeling SOB PT-OP-C Subjective Start: 05/24/19 07:23 Freq: Status: Active Protocol: Document 06/20/19 18:59 AR (Rec: 06/20/19 19:15 AR [email or web address]) OP-PT Subjective Patient Comments Patient Comments Pt reports she over-did it yesterday cleaning around the house. She tried to do all her cleaning in one day and feels very sore today. She reports last visit she didn't feel as much relief after manual therapy and heat but also noted the heat wasn't as hot as the first time. She has been compliant with HEP and wanted to review two exercises that she was confused on. PT-OP-K Range of Motion Start: 05/24/19 07:23 Freq: Status: Active Protocol: Document 05/24/19 16:57 AR (Rec: 05/24/19 18:05 AR [email or web address]) Lumbar Spine Range of Motion Lumbar Spine Active Testing Position Standing Flexion 75 Extension 15 Rotation Left 75 Rotation Right 50 Lateral Flexion Left 50 Lateral Flexion Right 25 ROM Limitations Pain Comments ROM in %. Pt reported sharp pain with R side bending and pull with R rotation. Most flexion from T/S, limited ext in L/S and T/S. Pt was able to acheive more ROM into flexion on second attempt. PT-OP-M Strength Start: 05/24/19 07:23 Freq: Status: Active Protocol: Document 05/24/19 16:57 AR (Rec: 05/24/19 18:05 AR [email or web address]) Hip Strength Hip Manual Muscle Testing Left Flexion (L2) 4 Good External Rotation 4- Good- Internal Rotation 4- Good- Right Flexion (L2) 4 Good External Rotation 4- Good- Internal Rotation 4- Good- Comments Pt reported pull in L hip during IR testing Knee Strength Knee Manual Muscle Testing Left Flexion (S2) 4- Good- Extension (L3) 4 Good Right Flexion (S2) 4 Good Extension (L3) 4 Good Ankle/Foot Strength Ankle and Foot Manual Muscle Testing Left Dorsiflexion (L4) 4- Good- Plantarflexion (S1) 4+ Good+ Right Dorsiflexion (L4) 4 Good Plantarflexion (S1) 4 Good PT-OP-Q Treatments Start: 05/24/19 07:23 Freq: Status: Active Protocol: Document 06/20/19 18:59 AR (Rec: 06/20/19 19:15 AR [email or web address]) Cardio Equipment Recumbent Elliptical (Biodex) Duration (Minutes) 6 Resistance 3 Other pt tolerated well and was able to maintain conversation during exercise Therapeutic Exercises Supine Exercises TA activation Supine Exercise Name TA activtion Reps/Minutes 10 reps, 3 sec holds Comments added to HEP. pt educated on inc time of holds at home Prone Exercises Cat/Camel Prone Exercise Name cat/camel at raised table Equipment Used high table (for hands) Reps/Minutes 5 rounds Comments heavy verbal and manual cueing for thoracic mobility. pt unable to achieve Sitting Exercises T/S extension Sitting Exercise Name T/S extension Reps/Minutes 10 reps Comments pt unable to achieve T/S extension even w heavy cueing Standing Exercises T/S ext at wall Standing Exercise Name walk hands up wall, relax chest forward Side bilateral Reps/Minutes 4x30 sec holds Comments heavy cueing, but pt able to achieve t/s ext. felt lat stretch Manual Therapy Treatment Soft Tissue Mobilization Scaral border Body Location R side, superior gluteal region Mobilization Type Myofascial Release Sustained Pressure Intensity/Depth Superficial Body Position L sidelying Comments restrictions in gluteal region responded well to manual therapy. pt was very tender to palpation. Self-Care/Home Management Treatment Education Patient Education Fall Risk Safety Other Education discussion regarding going to the bathroom in the middle of the night. pt reports she has a light on to avoid tripping and has a commode close by if she needs to make it to the bathroom quickly PT-OP-R Modalities Start: 05/24/19 07:23 Freq: Status: Active Protocol: Document 06/20/19 18:59 AR (Rec: 06/20/19 19:15 AR [email or web address]) Hot Pack/Cold Pack Treatment Hot Pack Location L/S Patient Position Supine Treatment Duration (minutes) 10 Patient Tolerance Good PT-OP-T Assessment and Plan Start: 05/24/19 07:23 Freq: Status: Active Protocol: Document 06/20/19 18:59 AR (Rec: 06/20/19 19:15 AR [email or web address]) Physical Therapy Assessment Goals Strength Short Term Goal (STG) Pt will be independent with HEP. STG Duration 06/24/2019 Prison Goal (LTG) Pt will be able to stand for cooking and household tasks for 1 hour w/o SOB or inc in LBP greater than 2 points in VAS scale. LTG Duration 07/25/2019 Gait Short Term Goal (STG) Pt will be able to participate in the 6MWT in order to quanitfy fall risk and dec likelihood of fall with inc walking speed and distance. STG Duration 06/24/2019 Prison Goal (LTG) Pt will be able to walk distance required to participate in community events w/o SOB or inc in LBP greater than 2 points in VAS scale. LTG Duration 07/25/2019 Breathing Short Term Goal (STG) Pt will demonstrate proper pursed lip breathing. STG Duration 06/24/2019 Reconsignment Clerk Goal (LTG) Pt will utilize pursed lip breathing during activity. LTG Duration 07/25/2019 Assessment Summary Assessment Pt is still unable to isolate T/S extension w/o heavy cueing . Pt was able to demonstrate proper TA activation after reviewing exercise. Pt may benefit from cane for community ambulation to inc stability. Pt is receptive to gait training with a cane, as she furniture walks at home at throughout the clinic. Pt was educated on spacing out house cleaning activities so as not to aggrevate her back and feel sore the next day. Physical Therapy Plan Frequency and Duration Frequency of Treatment 2x/Week Duration of Treatment 2 months Plan of Care Start Date 05/24/19 Plan of Care End Date 07/25/19 Next Visit Focus/Plan Next Note Type Treatment Note Next Visit Plan cane training for community amb. progress spinal mobility exercises.
--- NOTE | 2019-06-25 12:10 | PT.OTN ---
Current Diagnoses Other chronic pain (06/25/19) Other spondylosis with radiculopathy, thoracic region (06/25/19) Spondylosis without myelopathy or radiculopathy, lumbosacral region (06/25/19) Pain in thoracic spine (06/25/19) Difficulty in walking, not elsewhere classified (06/25/19) Abnormal posture (06/25/19) Weakness (06/25/19) Physical Therapy Treatment Note PT-OP-A Visit Information Start: 05/24/19 07:23 Freq: Status: Active Protocol: Document 06/25/19 11:15 AMB (Rec: 06/25/19 12:59 AMB [email or web address]) Out-Patient Physical Therapy Visit Information Visit Information Visit Type Treatment Note Visit Start Time 11:30 Visit Stop Time 12:10 Total Visit Minutes 40 Visit Number 5 Number of PRESCHOOL EDUCATION DIRECTOR Visits 0 PT-OP-B Current Condition Start: 05/24/19 07:23 Freq: Status: Active Protocol: Document 05/24/19 16:57 AR (Rec: 05/24/19 18:05 AR [email or web address]) Current Condition History of Current Condition Onset Date 2016 Current Complaints L/S, T/S, C/S pain, shortness of breath History of Current Condition Pain in back started a few years ago. Pt has also started feeling short of breath and needs to take rest breaks to catch her breath after a few steps. pt has also recently been experiencing painful cramping in her legs. Prior Treatments and Tests Pt has hx of L4/5 laminectomy and L knee replacement (susan- TKA). She stated that during L /S surgery, the dura was cut and she had to undergo tx for that (lying flat). She has received injections in her L/S and her pain management doctor has discussed a dorsal rhizotomy as a futher treatment option. She has received PT for her L/S previously and stated that overall it did not help much, but massage and e-stim/TENS did help pain. Treatment Goals Patient/Caregiver Goals Be able to go out shopping, to shows, etc without needing to stop d/t back pain or to catch breath. Prior Functional Status Baseline Function- ADL's Independent Baseline Function- Mobility Independent Baseline Function- Gait able to walk w/o SOB or pain Baseline Function- Recreation/Hobbies able to go shopping with her sister w/o SOB or pain Baseline Function- Other pt is unable to vacuum, but does light sweeping and dusting w/o pain or SOB Current Functional Impairments (Reported) Functional Limitations- ADL's unable to stand to cook longer than 30 minutes w/o taking a seated break. Functional Limitations- Mobility/Gait unable to walk to mailbox w/o feeling SOB PT-OP-C Subjective Start: 05/24/19 07:23 Freq: Status: Active Protocol: Document 06/25/19 11:15 AMB (Rec: 06/25/19 12:59 AMB [email or web address]) OP-PT Subjective Patient Comments Patient Comments Pt reports she is still getting over her cold. PT-OP-K Range of Motion Start: 05/24/19 07:23 Freq: Status: Active Protocol: Document 05/24/19 16:57 AR (Rec: 05/24/19 18:05 AR [email or web address]) Lumbar Spine Range of Motion Lumbar Spine Active Testing Position Standing Flexion 75 Extension 15 Rotation Left 75 Rotation Right 50 Lateral Flexion Left 50 Lateral Flexion Right 25 ROM Limitations Pain Comments ROM in %. Pt reported sharp pain with R side bending and pull with R rotation. Most flexion from T/S, limited ext in L/S and T/S. Pt was able to acheive more ROM into flexion on second attempt. PT-OP-M Strength Start: 05/24/19 07:23 Freq: Status: Active Protocol: Document 05/24/19 16:57 AR (Rec: 05/24/19 18:05 AR [email or web address]) Hip Strength Hip Manual Muscle Testing Left Flexion (L2) 4 Good External Rotation 4- Good- Internal Rotation 4- Good- Right Flexion (L2) 4 Good External Rotation 4- Good- Internal Rotation 4- Good- Comments Pt reported pull in L hip during IR testing Knee Strength Knee Manual Muscle Testing Left Flexion (S2) 4- Good- Extension (L3) 4 Good Right Flexion (S2) 4 Good Extension (L3) 4 Good Ankle/Foot Strength Ankle and Foot Manual Muscle Testing Left Dorsiflexion (L4) 4- Good- Plantarflexion (S1) 4+ Good+ Right Dorsiflexion (L4) 4 Good Plantarflexion (S1) 4 Good PT-OP-Q Treatments Start: 05/24/19 07:23 Freq: Status: Active Protocol: Document 06/25/19 11:15 AMB (Rec: 06/26/19 07:18 AMB [email or web address]) Cardio Equipment Recumbent Elliptical (Biodex) Duration (Minutes) 6 Resistance 3 Other pt tolerated well and was able to maintain conversation during exercise Therapeutic Exercises Supine Exercises TA activation Supine Exercise Name TA activtion Reps/Minutes 10 reps, 3 sec holds Comments added to HEP. pt educated on inc time of holds at home pelvic tilt Supine Exercise Name pelvic tilt Reps/Minutes 10 Comments ant & post, 30 sec hold in post SKTC Supine Exercise Name SKTC Side bilateral Reps/Minutes 2x30 seconds Comments pt cued to pull post thigh rather than knee to avoid pain Sitting Exercises T/S extension Sitting Exercise Name T/S extension Reps/Minutes 10 reps Comments worked on getting to neutral and cervical position Gait Training Gait Activity 1 Description cane training Comments pt much slower but with better gait mechanics with cane, needed significant cueing to use cane appropriately Manual Therapy Treatment Soft Tissue Mobilization Scaral border Body Location R side, superior gluteal region Mobilization Type Myofascial Release Sustained Pressure Intensity/Depth Superficial Body Position L sidelying Comments restrictions in gluteal region responded well to manual therapy. pt was very tender to palpation. PT-OP-R Modalities Start: 05/24/19 07:23 Freq: Status: Active Protocol: Document 06/25/19 11:15 AMB (Rec: 06/26/19 07:18 AMB [email or web address]) Hot Pack/Cold Pack Treatment Hot Pack Location L/S Patient Position Supine Treatment Duration (minutes) 10 Patient Tolerance Good PT-OP-T Assessment and Plan Start: 05/24/19 07:23 Freq: Status: Active Protocol: Document 06/25/19 11:15 AMB (Rec: 06/25/19 12:59 AMB [email or web address]) Physical Therapy Assessment Assessment Summary Assessment Pt did not furniture walk today as much, but her gait mechanics are improved with SPC. She needed to walk slower to have good gait mechanics with the cane, but had less lateral lean. Physical Therapy Plan Next Visit Focus/Plan Next Note Type Treatment Note Next Visit Plan Continue cane training, progress spinal mobility/ stability
--- NOTE | 2019-06-27 19:17 | PT.OTN ---
Current Diagnoses Other chronic pain (06/27/19) Other spondylosis with radiculopathy, thoracic region (06/27/19) Spondylosis without myelopathy or radiculopathy, lumbosacral region (06/27/19) Pain in thoracic spine (06/27/19) Difficulty in walking, not elsewhere classified (06/27/19) Abnormal posture (06/27/19) Weakness (06/27/19) Physical Therapy Treatment Note PT-OP-A Visit Information Start: 05/24/19 07:23 Freq: Status: Active Protocol: Document 06/27/19 16:45 AR (Rec: 06/27/19 18:11 AR [email or web address]) Out-Patient Physical Therapy Visit Information Visit Information Visit Type Treatment Note Visit Start Time 16:50 Visit Stop Time 17:45 Total Visit Minutes 55 Visit Number 6 Number of DIABETES PHYSICIAN Visits 0 PT-OP-B Current Condition Start: 05/24/19 07:23 Freq: Status: Active Protocol: Document 05/24/19 16:57 AR (Rec: 05/24/19 18:05 AR [email or web address]) Current Condition History of Current Condition Onset Date 2016 Current Complaints L/S, T/S, C/S pain, shortness of breath History of Current Condition Pain in back started a few years ago. Pt has also started feeling short of breath and needs to take rest breaks to catch her breath after a few steps. pt has also recently been experiencing painful cramping in her legs. Prior Treatments and Tests Pt has hx of L4/5 laminectomy and L knee replacement (susan- TKA). She stated that during L /S surgery, the dura was cut and she had to undergo tx for that (lying flat). She has received injections in her L/S and her pain management doctor has discussed a dorsal rhizotomy as a futher treatment option. She has received PT for her L/S previously and stated that overall it did not help much, but massage and e-stim/TENS did help pain. Treatment Goals Patient/Caregiver Goals Be able to go out shopping, to shows, etc without needing to stop d/t back pain or to catch breath. Prior Functional Status Baseline Function- ADL's Independent Baseline Function- Mobility Independent Baseline Function- Gait able to walk w/o SOB or pain Baseline Function- Recreation/Hobbies able to go shopping with her sister w/o SOB or pain Baseline Function- Other pt is unable to vacuum, but does light sweeping and dusting w/o pain or SOB Current Functional Impairments (Reported) Functional Limitations- ADL's unable to stand to cook longer than 30 minutes w/o taking a seated break. Functional Limitations- Mobility/Gait unable to walk to mailbox w/o feeling SOB PT-OP-C Subjective Start: 05/24/19 07:23 Freq: Status: Active Protocol: Document 06/27/19 16:45 AR (Rec: 06/27/19 18:11 AR [email or web address]) OP-PT Subjective Patient Comments Patient Comments Pt reports she is in a lot of pain today. Her neck is very sore and she thinks she may have slept wrong. Pt also stated that her BP has been high recently. She continues to be SOB and needs to stop often to catch her breath. Pt states she feels some relief after therapy for a few hours and believes HEP helps her pain. PT-OP-K Range of Motion Start: 05/24/19 07:23 Freq: Status: Active Protocol: Document 05/24/19 16:57 AR (Rec: 05/24/19 18:05 AR [email or web address]) Lumbar Spine Range of Motion Lumbar Spine Active Testing Position Standing Flexion 75 Extension 15 Rotation Left 75 Rotation Right 50 Lateral Flexion Left 50 Lateral Flexion Right 25 ROM Limitations Pain Comments ROM in %. Pt reported sharp pain with R side bending and pull with R rotation. Most flexion from T/S, limited ext in L/S and T/S. Pt was able to acheive more ROM into flexion on second attempt. PT-OP-M Strength Start: 05/24/19 07:23 Freq: Status: Active Protocol: Document 05/24/19 16:57 AR (Rec: 05/24/19 18:05 AR [email or web address]) Hip Strength Hip Manual Muscle Testing Left Flexion (L2) 4 Good External Rotation 4- Good- Internal Rotation 4- Good- Right Flexion (L2) 4 Good External Rotation 4- Good- Internal Rotation 4- Good- Comments Pt reported pull in L hip during IR testing Knee Strength Knee Manual Muscle Testing Left Flexion (S2) 4- Good- Extension (L3) 4 Good Right Flexion (S2) 4 Good Extension (L3) 4 Good Ankle/Foot Strength Ankle and Foot Manual Muscle Testing Left Dorsiflexion (L4) 4- Good- Plantarflexion (S1) 4+ Good+ Right Dorsiflexion (L4) 4 Good Plantarflexion (S1) 4 Good PT-OP-Q Treatments Start: 05/24/19 07:23 Freq: Status: Active Protocol: Document 06/27/19 16:45 AR (Rec: 06/27/19 18:11 AR [email or web address]) Therapeutic Exercises Supine Exercises AROM iso hip flex Supine Exercise Name with manual resistance Side bilateral Reps/Minutes 5 reps, 10 sec holds Comments pt cued to go slowly and engage core to avoid sharp pain TA activation Supine Exercise Name TA activtion w marches Side bilateral Reps/Minutes 10 reps, 3 sec holds Sidelying Exercises clamshells Sidelying Exercise Name clamshells Side left Resistance none Reps/Minutes 15 reps Standing Exercises mini squat Standing Exercise Name mini squat at raised table Reps/Minutes 15 reps Comments cued for hip hinge and forward trunk lean Manual Therapy Treatment Soft Tissue Mobilization UT, lev scap Body Location UT, lev scap Mobilization Type Myofascial Release Intensity/Depth Superficial Body Position Sitting Comments pt very tender to palpation. Paraspinals Body Location L/S Mobilization Type Myofascial Release Rolling Intensity/Depth Moderate Body Position Sidelying Comments pt able to tolerate deeper pressure today without tenderness. pt was still sore around sup border of post iliac crest Self-Care/Home Management Treatment Education Patient Education Body Mechanics Other Education pt had significant pain the first time she laid down without log roll technique. pt educated on log roll and utilizing it for movement out of and into bed. PT-OP-R Modalities Start: 05/24/19 07:23 Freq: Status: Active Protocol: Document 06/27/19 16:45 AR (Rec: 06/27/19 18:13 AR [email or web address]) Hot Pack/Cold Pack Treatment Hot Pack Location L/S & C/S Patient Position Supine Treatment Duration (minutes) 15 PT-OP-T Assessment and Plan Start: 05/24/19 07:23 Freq: Status: Active Protocol: Document 06/27/19 16:45 AR (Rec: 06/27/19 18:11 AR [email or web address]) Physical Therapy Assessment Assessment Summary Assessment Pt presented with SOB and cervical pain today. O2 sat was 97, HR was 71 and BP was 170/74 before beginning therapy. Aerobic exercise was avoided d/t inc BP and pt was encouraged to talk to doctor about her blood pressure medications. Pt had reduced pain with log roll technique and was able to engage core during exercises today. Physical Therapy Plan Frequency and Duration Frequency of Treatment 2x/Week Duration of Treatment 2 months Plan of Care Start Date 05/24/19 Plan of Care End Date 07/25/19 Next Visit Focus/Plan Next Note Type Treatment Note Next Visit Plan review cane training and mini squats, progress spinal stability exercises.
--- NOTE | 2019-07-03 18:54 | PT.OTN ---
Current Diagnoses Other chronic pain (07/03/19) Other spondylosis with radiculopathy, thoracic region (07/03/19) Spondylosis without myelopathy or radiculopathy, lumbosacral region (07/03/19) Pain in thoracic spine (07/03/19) Difficulty in walking, not elsewhere classified (07/03/19) Abnormal posture (07/03/19) Weakness (07/03/19) Physical Therapy Treatment Note PT-OP-A Visit Information Start: 05/24/19 07:23 Freq: Status: Active Protocol: Document 07/03/19 14:13 AR (Rec: 07/03/19 14:23 AR [email or web address]) Out-Patient Physical Therapy Visit Information Visit Information Visit Type Treatment Note Visit Start Time 11:25 Visit Stop Time 12:10 Total Visit Minutes 45 Visit Number 7 Number of SEMI DRIVER Visits 0 PT-OP-B Current Condition Start: 05/24/19 07:23 Freq: Status: Active Protocol: Document 05/24/19 16:57 AR (Rec: 05/24/19 18:05 AR [email or web address]) Current Condition History of Current Condition Onset Date 2016 Current Complaints L/S, T/S, C/S pain, shortness of breath History of Current Condition Pain in back started a few years ago. Pt has also started feeling short of breath and needs to take rest breaks to catch her breath after a few steps. pt has also recently been experiencing painful cramping in her legs. Prior Treatments and Tests Pt has hx of L4/5 laminectomy and L knee replacement (susan- TKA). She stated that during L /S surgery, the dura was cut and she had to undergo tx for that (lying flat). She has received injections in her L/S and her pain management doctor has discussed a dorsal rhizotomy as a futher treatment option. She has received PT for her L/S previously and stated that overall it did not help much, but massage and e-stim/TENS did help pain. Treatment Goals Patient/Caregiver Goals Be able to go out shopping, to shows, etc without needing to stop d/t back pain or to catch breath. Prior Functional Status Baseline Function- ADL's Independent Baseline Function- Mobility Independent Baseline Function- Gait able to walk w/o SOB or pain Baseline Function- Recreation/Hobbies able to go shopping with her sister w/o SOB or pain Baseline Function- Other pt is unable to vacuum, but does light sweeping and dusting w/o pain or SOB Current Functional Impairments (Reported) Functional Limitations- ADL's unable to stand to cook longer than 30 minutes w/o taking a seated break. Functional Limitations- Mobility/Gait unable to walk to mailbox w/o feeling SOB PT-OP-C Subjective Start: 05/24/19 07:23 Freq: Status: Active Protocol: Document 07/03/19 14:13 AR (Rec: 07/03/19 14:23 AR [email or web address]) OP-PT Subjective Patient Comments Patient Comments Pt canceled yesterday's appointment becase she was feeling poorly all weekend. She had GI irritation as well as back pain from L/S to C/S. She's not sure what caused the pain but she was cleaning the house before onset of pain. She has an endocrinology appt tomorrow and is hopeful they may be able to tell her what is causing her SOB. PT-OP-K Range of Motion Start: 05/24/19 07:23 Freq: Status: Active Protocol: Document 05/24/19 16:57 AR (Rec: 05/24/19 18:05 AR [email or web address]) Lumbar Spine Range of Motion Lumbar Spine Active Testing Position Standing Flexion 75 Extension 15 Rotation Left 75 Rotation Right 50 Lateral Flexion Left 50 Lateral Flexion Right 25 ROM Limitations Pain Comments ROM in %. Pt reported sharp pain with R side bending and pull with R rotation. Most flexion from T/S, limited ext in L/S and T/S. Pt was able to acheive more ROM into flexion on second attempt. PT-OP-M Strength Start: 05/24/19 07:23 Freq: Status: Active Protocol: Document 05/24/19 16:57 AR (Rec: 05/24/19 18:05 AR [email or web address]) Hip Strength Hip Manual Muscle Testing Left Flexion (L2) 4 Good External Rotation 4- Good- Internal Rotation 4- Good- Right Flexion (L2) 4 Good External Rotation 4- Good- Internal Rotation 4- Good- Comments Pt reported pull in L hip during IR testing Knee Strength Knee Manual Muscle Testing Left Flexion (S2) 4- Good- Extension (L3) 4 Good Right Flexion (S2) 4 Good Extension (L3) 4 Good Ankle/Foot Strength Ankle and Foot Manual Muscle Testing Left Dorsiflexion (L4) 4- Good- Plantarflexion (S1) 4+ Good+ Right Dorsiflexion (L4) 4 Good Plantarflexion (S1) 4 Good PT-OP-Q Treatments Start: 05/24/19 07:23 Freq: Status: Active Protocol: Document 07/03/19 14:13 AR (Rec: 07/03/19 14:23 AR [email or web address]) Therapeutic Exercises Supine Exercises knee rockers Supine Exercise Name knee rockers Side bilateral Reps/Minutes 30 reps Comments small ROM. added to HEP TA activation Supine Exercise Name TA activtion w marches Side bilateral Reps/Minutes 5 reps each leg Comments pain in back with lifting RLE Sidelying Exercises reach and roll Sidelying Exercise Name reach and roll Side right Reps/Minutes 15 reps Comments pain in shoulder. cued to focus on trunk rot rather than shoulder motion Manual Therapy Treatment Soft Tissue Mobilization Paraspinals Body Location T/S, L/S Mobilization Type Myofascial Release Rolling Intensity/Depth Superficial Body Position Sidelying Comments very tender to palpation today Joint Mobilizations T/S Joint lower T/S Direction rotation Grade II Body Position Sidelying Comments with reach and roll motion. PT-OP-R Modalities Start: 05/24/19 07:23 Freq: Status: Active Protocol: Document 07/03/19 14:13 AR (Rec: 07/03/19 14:24 AR [email or web address]) Hot Pack/Cold Pack Treatment Hot Pack Location L/S Patient Position Supine Treatment Duration (minutes) 15 PT-OP-T Assessment and Plan Start: 05/24/19 07:23 Freq: Status: Active Protocol: Document 07/03/19 14:13 AR (Rec: 07/03/19 14:23 AR [email or web address]) Physical Therapy Assessment Goals Strength Short Term Goal (STG) Pt will be independent with HEP. STG Duration 06/24/2019 Intermediate Goal (LTG) Pt will be able to stand for cooking and household tasks for 1 hour w/o SOB or inc in LBP greater than 2 points in VAS scale. LTG Duration 07/25/2019 Gait Short Term Goal (STG) Pt will be able to participate in the 6MWT in order to quanitfy fall risk and dec likelihood of fall with inc walking speed and distance. STG Duration 06/24/2019 Intermediate Goal (LTG) Pt will be able to walk distance required to participate in community events w/o SOB or inc in LBP greater than 2 points in VAS scale. LTG Duration 07/25/2019 Breathing Short Term Goal (STG) Pt will demonstrate proper pursed lip breathing. STG Duration 06/24/2019 [employer] Operations Duty Manager Goal (LTG) Pt will utilize pursed lip breathing during activity. LTG Duration 07/25/2019 Assessment Summary Assessment Pt presented SOB and fatigue. O2 sat was 92 but quickly inc to 95 with deep breathing. BP was 180/74 so aerobic exercise was avoided today. Pt stated she took her BP medication this morning and was encouraged to talk to her doctor about it. Pt has not had relief with any exercises so she was encouraged to pay closer attention to which exercises are helpful and which inc pain. Physical Therapy Plan Frequency and Duration Frequency of Treatment 2x/Week Duration of Treatment 2 months Plan of Care Start Date 05/24/19 Plan of Care End Date 07/25/19 Next Visit Focus/Plan Next Note Type Treatment Note Next Visit Plan monitor BP. inc T/S mobility as tolerated. posture
--- NOTE | 2019-07-11 18:41 | PT.OTN ---
Current Diagnoses Other chronic pain (07/11/19) Other spondylosis with radiculopathy, thoracic region (07/11/19) Spondylosis without myelopathy or radiculopathy, lumbosacral region (07/11/19) Pain in thoracic spine (07/11/19) Difficulty in walking, not elsewhere classified (07/11/19) Abnormal posture (07/11/19) Weakness (07/11/19) Physical Therapy Treatment Note PT-OP-A Visit Information Start: 05/24/19 07:23 Freq: Status: Active Protocol: Document 07/11/19 17:16 AR (Rec: 07/11/19 17:31 AR [id number]) Out-Patient Physical Therapy Visit Information Visit Information Visit Type Treatment Note Visit Start Time 16:10 Visit Stop Time 17:00 Total Visit Minutes 50 Visit Number 8 Number of FILLING AND STAPLING MACHINE OPERATOR Visits 0 PT-OP-B Current Condition Start: 05/24/19 07:23 Freq: Status: Active Protocol: Document 05/24/19 16:57 AR (Rec: 05/24/19 18:05 AR [email or web address]) Current Condition History of Current Condition Onset Date 2016 Current Complaints L/S, T/S, C/S pain, shortness of breath History of Current Condition Pain in back started a few years ago. Pt has also started feeling short of breath and needs to take rest breaks to catch her breath after a few steps. pt has also recently been experiencing painful cramping in her legs. Prior Treatments and Tests Pt has hx of L4/5 laminectomy and L knee replacement (susan- TKA). She stated that during L /S surgery, the dura was cut and she had to undergo tx for that (lying flat). She has received injections in her L/S and her pain management doctor has discussed a dorsal rhizotomy as a futher treatment option. She has received PT for her L/S previously and stated that overall it did not help much, but massage and e-stim/TENS did help pain. Treatment Goals Patient/Caregiver Goals Be able to go out shopping, to shows, etc without needing to stop d/t back pain or to catch breath. Prior Functional Status Baseline Function- ADL's Independent Baseline Function- Mobility Independent Baseline Function- Gait able to walk w/o SOB or pain Baseline Function- Recreation/Hobbies able to go shopping with her sister w/o SOB or pain Baseline Function- Other pt is unable to vacuum, but does light sweeping and dusting w/o pain or SOB Current Functional Impairments (Reported) Functional Limitations- ADL's unable to stand to cook longer than 30 minutes w/o taking a seated break. Functional Limitations- Mobility/Gait unable to walk to mailbox w/o feeling SOB PT-OP-C Subjective Start: 05/24/19 07:23 Freq: Status: Active Protocol: Document 07/11/19 17:16 AR (Rec: 07/11/19 17:31 AR [id number]) OP-PT Subjective Patient Comments Patient Comments Pt reports her back is feeling about the same. She had some confusion about HEP. She saw her [employer] artillery last week and he believes she has tight muscles in her back. PT-OP-K Range of Motion Start: 05/24/19 07:23 Freq: Status: Active Protocol: Document 05/24/19 16:57 AR (Rec: 05/24/19 18:05 AR [email or web address]) Lumbar Spine Range of Motion Lumbar Spine Active Testing Position Standing Flexion 75 Extension 15 Rotation Left 75 Rotation Right 50 Lateral Flexion Left 50 Lateral Flexion Right 25 ROM Limitations Pain Comments ROM in %. Pt reported sharp pain with R side bending and pull with R rotation. Most flexion from T/S, limited ext in L/S and T/S. Pt was able to acheive more ROM into flexion on second attempt. PT-OP-M Strength Start: 05/24/19 07:23 Freq: Status: Active Protocol: Document 05/24/19 16:57 AR (Rec: 05/24/19 18:05 AR [email or web address]) Hip Strength Hip Manual Muscle Testing Left Flexion (L2) 4 Good External Rotation 4- Good- Internal Rotation 4- Good- Right Flexion (L2) 4 Good External Rotation 4- Good- Internal Rotation 4- Good- Comments Pt reported pull in L hip during IR testing Knee Strength Knee Manual Muscle Testing Left Flexion (S2) 4- Good- Extension (L3) 4 Good Right Flexion (S2) 4 Good Extension (L3) 4 Good Ankle/Foot Strength Ankle and Foot Manual Muscle Testing Left Dorsiflexion (L4) 4- Good- Plantarflexion (S1) 4+ Good+ Right Dorsiflexion (L4) 4 Good Plantarflexion (S1) 4 Good PT-OP-Q Treatments Start: 05/24/19 07:23 Freq: Status: Active Protocol: Document 07/11/19 17:16 AR (Rec: 07/11/19 17:31 AR [id number]) Therapeutic Exercises Supine Exercises abdominal stretch Supine Exercise Name abdominal stretch Equipment Used head of table inclined Reps/Minutes 3 min Comments slight dec as tolerated Standing Exercises T/S ext at wall Standing Exercise Name T/S ext at wall Reps/Minutes 1 min Comments reviewed from HEP Therapeutic Activity Therapeutic Activity diaphragmatic breathing Name breathing Reps/Minutes 7 min Comments hands on chest and stomach for self-cueing. pt was instructed to breathe slowly and not to hold breath after inhales. Manual Therapy Treatment Soft Tissue Mobilization Paraspinals Body Location R side T/S, L/S Mobilization Type Myofascial Release,Rolling Intensity/Depth Superficial Body Position Sidelying Comments slightly tender to palpation. Self-Care/Home Management Treatment Education Patient Education Home Exercise Program Other Education reviewed HEP and form quickly PT-OP-R Modalities Start: 05/24/19 07:23 Freq: Status: Active Protocol: Document 07/11/19 17:16 AR (Rec: 07/11/19 17:31 AR [id number]) Hot Pack/Cold Pack Treatment Hot Pack Location L/S Patient Position Supine Treatment Duration (minutes) 15 PT-OP-T Assessment and Plan Start: 05/24/19 07:23 Freq: Status: Active Protocol: Document 07/11/19 17:16 AR (Rec: 07/11/19 17:31 AR [id number]) Physical Therapy Assessment Goals Strength Short Term Goal (STG) Pt will be independent with HEP. STG Duration 06/24/2019 Goodwill Ambassador Goal (LTG) Pt will be able to stand for cooking and household tasks for 1 hour w/o SOB or inc in LBP greater than 2 points in VAS scale. LTG Duration 07/25/2019 Gait Short Term Goal (STG) Pt will be able to participate in the 6MWT in order to quanitfy fall risk and dec likelihood of fall with inc walking speed and distance. STG Duration 06/24/2019 [facility] Goal (LTG) Pt will be able to walk distance required to participate in community events w/o SOB or inc in LBP greater than 2 points in VAS scale. LTG Duration 07/25/2019 Breathing Short Term Goal (STG) Pt will demonstrate proper pursed lip breathing. STG Duration 06/24/2019 [facility] Goal (LTG) Pt will utilize pursed lip breathing during activity. LTG Duration 07/25/2019 Assessment Summary Assessment Pt arrived 10 minutes late and was seemed stressed and rushed. Pt was unable to perform diaphragmatic breathing w/o scalene activation, even with heavy cueing. Pt reported she has been holding her breath for 4 seconds after inhaling, so she was encouraged to stop performing that breathing exercise. Pt's pain with laying flat may be d/t stretching of anterior abdominal musculature. Physical Therapy Plan Frequency and Duration Frequency of Treatment 2x/Week Duration of Treatment 2 months Plan of Care Start Date 05/24/19 Plan of Care End Date 07/25/19 Next Visit Focus/Plan Next Note Type Treatment Note Next Visit Plan review breathing. posture at wall. assess technique for cleaning
--- NOTE | 2019-07-17 18:05 | PT.OTN ---
Current Diagnoses Other chronic pain (07/17/19) Other spondylosis with radiculopathy, thoracic region (07/17/19) Spondylosis without myelopathy or radiculopathy, lumbosacral region (07/17/19) Pain in thoracic spine (07/17/19) Difficulty in walking, not elsewhere classified (07/17/19) Abnormal posture (07/17/19) Weakness (07/17/19) Physical Therapy Treatment Note PT-OP-A Visit Information Start: 05/24/19 07:23 Freq: Status: Active Protocol: Document 07/17/19 17:43 AR (Rec: 07/17/19 18:00 AR [id number]) Out-Patient Physical Therapy Visit Information Visit Information Visit Type Treatment Note Visit Start Time 15:15 Visit Stop Time 16:15 Total Visit Minutes 60 Visit Number 9 Number of ELECTRONEURODIAGNOSTIC TECHNOLOGIST Visits 0 PT-OP-B Current Condition Start: 05/24/19 07:23 Freq: Status: Active Protocol: Document 05/24/19 16:57 AR (Rec: 05/24/19 18:05 AR [email or web address]) Current Condition History of Current Condition Onset Date 2016 Current Complaints L/S, T/S, C/S pain, shortness of breath History of Current Condition Pain in back started a few years ago. Pt has also started feeling short of breath and needs to take rest breaks to catch her breath after a few steps. pt has also recently been experiencing painful cramping in her legs. Prior Treatments and Tests Pt has hx of L4/5 laminectomy and L knee replacement (susan- TKA). She stated that during L /S surgery, the dura was cut and she had to undergo tx for that (lying flat). She has received injections in her L/S and her pain management doctor has discussed a dorsal rhizotomy as a futher treatment option. She has received PT for her L/S previously and stated that overall it did not help much, but massage and e-stim/TENS did help pain. Treatment Goals Patient/Caregiver Goals Be able to go out shopping, to shows, etc without needing to stop d/t back pain or to catch breath. Prior Functional Status Baseline Function- ADL's Independent Baseline Function- Mobility Independent Baseline Function- Gait able to walk w/o SOB or pain Baseline Function- Recreation/Hobbies able to go shopping with her sister w/o SOB or pain Baseline Function- Other pt is unable to vacuum, but does light sweeping and dusting w/o pain or SOB Current Functional Impairments (Reported) Functional Limitations- ADL's unable to stand to cook longer than 30 minutes w/o taking a seated break. Functional Limitations- Mobility/Gait unable to walk to mailbox w/o feeling SOB PT-OP-C Subjective Start: 05/24/19 07:23 Freq: Status: Active Protocol: Document 07/17/19 17:43 AR (Rec: 07/17/19 18:00 AR [id number]) OP-PT Subjective Patient Comments Patient Comments Pt reported having a floater in her eye for the past 3 days that has not gone away. It is larger than floaters she has had in the past and not normal for her. She had gone to her kidney doctor last and they changed her BP medications. Pt has not had a recent change in her SOB and denied headaches. She has also been getting dizzy when she stands up and walks quickly. PT-OP-K Range of Motion Start: 05/24/19 07:23 Freq: Status: Active Protocol: Document 05/24/19 16:57 AR (Rec: 05/24/19 18:05 AR [email or web address]) Lumbar Spine Range of Motion Lumbar Spine Active Testing Position Standing Flexion 75 Extension 15 Rotation Left 75 Rotation Right 50 Lateral Flexion Left 50 Lateral Flexion Right 25 ROM Limitations Pain Comments ROM in %. Pt reported sharp pain with R side bending and pull with R rotation. Most flexion from T/S, limited ext in L/S and T/S. Pt was able to acheive more ROM into flexion on second attempt. PT-OP-M Strength Start: 05/24/19 07:23 Freq: Status: Active Protocol: Document 05/24/19 16:57 AR (Rec: 05/24/19 18:05 AR [email or web address]) Hip Strength Hip Manual Muscle Testing Left Flexion (L2) 4 Good External Rotation 4- Good- Internal Rotation 4- Good- Right Flexion (L2) 4 Good External Rotation 4- Good- Internal Rotation 4- Good- Comments Pt reported pull in L hip during IR testing Knee Strength Knee Manual Muscle Testing Left Flexion (S2) 4- Good- Extension (L3) 4 Good Right Flexion (S2) 4 Good Extension (L3) 4 Good Ankle/Foot Strength Ankle and Foot Manual Muscle Testing Left Dorsiflexion (L4) 4- Good- Plantarflexion (S1) 4+ Good+ Right Dorsiflexion (L4) 4 Good Plantarflexion (S1) 4 Good PT-OP-Q Treatments Start: 05/24/19 07:23 Freq: Status: Active Protocol: Document 07/17/19 17:43 AR (Rec: 07/17/19 18:00 AR [id number]) Therapeutic Exercises Sitting Exercises twist Sitting Exercise Name seated twist Side bilateral Reps/Minutes 10 reps Comments cued not to achieve gentle stretch sidebending Sitting Exercise Name with shoulder abduction Side bilateral Reps/Minutes 10 reps Comments cued not to achieve gentle stretch shoulder flexion Sitting Exercise Name to achieve T/S ext Side bilateral Reps/Minutes 10 reps Therapeutic Activity Therapeutic Activity vacuum Name vacuuming (using mop in hallway) Reps/Minutes 10 min Comments lunge position 10 x ea. cued to avoid T/S flexion. weight shifting to push mop rather than trunk flexion. 2x walking hallway. pt given info h/o for home diaphragmatic breathing Name breathing in seated Reps/Minutes 6 min Comments hands on chest and stomach for self-cueing. dec BP after breathing Manual Therapy Treatment Soft Tissue Mobilization Paraspinals Body Location R side T/S Mobilization Type Myofascial Release,Rolling Intensity/Depth Superficial Body Position moderate Comments slightly tender to palpation. PT-OP-R Modalities Start: 05/24/19 07:23 Freq: Status: Active Protocol: Document 07/17/19 17:43 AR (Rec: 07/17/19 18:00 AR [id number]) Hot Pack/Cold Pack Treatment Hot Pack Location L/S Patient Position Supine Treatment Duration (minutes) 15 PT-OP-T Assessment and Plan Start: 05/24/19 07:23 Freq: Status: Active Protocol: Document 07/17/19 17:43 AR (Rec: 07/17/19 18:00 AR [id number]) Physical Therapy Assessment Goals Strength Short Term Goal (STG) Pt will be independent with HEP. STG Duration achieved Blueprint Engineer Goal (LTG) Pt will be able to stand for cooking and household tasks for 1 hour w/o SOB or inc in LBP greater than 2 points in VAS scale. LTG Duration 07/25/2019 Gait Short Term Goal (STG) Pt will be able to participate in the 6MWT in order to quanitfy fall risk and dec likelihood of fall with inc walking speed and distance. STG Duration 06/24/2019 Penitentiary Goal (LTG) Pt will be able to walk distance required to participate in community events w/o SOB or inc in LBP greater than 2 points in VAS scale. LTG Duration 07/25/2019 Breathing Short Term Goal (STG) Pt will demonstrate proper pursed lip breathing. STG Duration achieved Blueprint Engineer Goal (LTG) Pt will utilize pursed lip breathing during activity. LTG Duration achieved Assessment Summary Assessment Pt's BP was taken upon entering clinic d/t reports of changes in vision and chronic SOB. BP was 182/88 initially and after a few minutes of diaphragmatic breathing, it dropped to 160/80. Gentle stretches and form during cleaning activities were focused on today to avoid aerobic activity. Pt was encouraged to call microbial specialist and primary care regarding changes in vision which seem to be correlated with BP medication modifications. Pt's postural during vacuuming and other household tasks may be strongly contributing to back pain and futher therapy to review form during vacuuming and other activities. Physical Therapy Plan Frequency and Duration Frequency of Treatment 2x/Week Duration of Treatment 2 months Plan of Care Start Date 05/24/19 Plan of Care End Date 07/25/19 Next Visit Focus/Plan Next Note Type Progress Note Next Visit Plan assess short term goals. monitor BP as needed. address lifting form and review vacuuming posture. manual therapy as needed
--- NOTE | 2019-09-05 16:19 | PT.OPDS ---
Current Diagnoses Other chronic pain (07/17/19) Other spondylosis with radiculopathy, thoracic region (07/17/19) Spondylosis without myelopathy or radiculopathy, lumbosacral region (07/17/19) Pain in thoracic spine (07/17/19) Difficulty in walking, not elsewhere classified (07/17/19) Abnormal posture (07/17/19) Weakness (07/17/19) Visit Care Team Role Provider Type Zarina Herrera DO Primary Care Provider Physician Specialty: Family Practice Address: [address] [place] [address], [address], [address] Email: [email or web address] Curly Rodríguez MD Family Provider Physician Specialty: Oncology Address: [address] [place] [address], [id number] Email: Lex Malone DO Attending Provider Physician Specialty: Physiatry Pain Management Address: [address] [place] [address], [address] Email: [email or web address] Visit Number Visit Number 9 Discharge Summary PT-OP-B Current Condition Start: 05/24/19 07:23 Freq: Status: Active Protocol: Document 05/24/19 16:57 AR (Rec: 05/24/19 18:05 AR [id number]) Current Condition History of Current Condition Onset Date 2016 Current Complaints L/S, T/S, C/S pain, shortness of breath History of Current Condition Pain in back started a few years ago. Pt has also started feeling short of breath and needs to take rest breaks to catch her breath after a few steps. pt has also recently been experiencing painful cramping in her legs. Prior Treatments and Tests Pt has hx of L4/5 laminectomy and L knee replacement (susan- TKA). She stated that during L /S surgery, the dura was cut and she had to undergo tx for that (lying flat). She has received injections in her L/S and her pain management doctor has discussed a dorsal rhizotomy as a futher treatment option. She has received PT for her L/S previously and stated that overall it did not help much, but massage and e-stim/TENS did help pain. Treatment Goals Patient/Caregiver Goals Be able to go out shopping, to shows, etc without needing to stop d/t back pain or to catch breath. Prior Functional Status Baseline Function- ADL's Independent Baseline Function- Mobility Independent Baseline Function- Gait able to walk w/o SOB or pain Baseline Function- Recreation/Hobbies able to go shopping with her sister w/o SOB or pain Baseline Function- Other pt is unable to vacuum, but does light sweeping and dusting w/o pain or SOB Current Functional Impairments (Reported) Functional Limitations- ADL's unable to stand to cook longer than 30 minutes w/o taking a seated break. Functional Limitations- Mobility/Gait unable to walk to mailbox w/o feeling SOB PT-OP-C Subjective Start: 05/24/19 07:23 Freq: Status: Active Protocol: Document 07/17/19 17:43 AR (Rec: 07/17/19 18:00 AR [id number]) OP-PT Subjective Patient Comments Patient Comments Pt reported having a floater in her eye for the past 3 days that has not gone away. It is larger than floaters she has had in the past and not normal for her. She had gone to her kidney doctor last and they changed her BP medications. Pt has not had a recent change in her SOB and denied headaches. She has also been getting dizzy when she stands up and walks quickly. PT-OP-K Range of Motion Start: 05/24/19 07:23 Freq: Status: Active Protocol: Document 05/24/19 16:57 AR (Rec: 05/24/19 18:05 AR [email or web address]) Lumbar Spine Range of Motion Lumbar Spine Active Testing Position Standing Flexion 75 Extension 15 Rotation Left 75 Rotation Right 50 Lateral Flexion Left 50 Lateral Flexion Right 25 ROM Limitations Pain Comments ROM in %. Pt reported sharp pain with R side bending and pull with R rotation. Most flexion from T/S, limited ext in L/S and T/S. Pt was able to acheive more ROM into flexion on second attempt. PT-OP-M Strength Start: 05/24/19 07:23 Freq: Status: Active Protocol: Document 05/24/19 16:57 AR (Rec: 05/24/19 18:05 AR [email or web address]) Hip Strength Hip Manual Muscle Testing Left Flexion (L2) 4 Good External Rotation 4- Good- Internal Rotation 4- Good- Right Flexion (L2) 4 Good External Rotation 4- Good- Internal Rotation 4- Good- Comments Pt reported pull in L hip during IR testing Knee Strength Knee Manual Muscle Testing Left Flexion (S2) 4- Good- Extension (L3) 4 Good Right Flexion (S2) 4 Good Extension (L3) 4 Good Ankle/Foot Strength Ankle and Foot Manual Muscle Testing Left Dorsiflexion (L4) 4- Good- Plantarflexion (S1) 4+ Good+ Right Dorsiflexion (L4) 4 Good Plantarflexion (S1) 4 Good PT-OP-T Assessment and Plan Start: 05/24/19 07:23 Freq: Status: Active Protocol: Document 09/05/19 16:17 [facility] (Rec: 09/05/19 16:19 [facility] [id number]) Physical Therapy Assessment Assessment Summary Assessment Pt made progress with activity tolerance very slowly with PT but did require a lot of education re: body mechanics. No longer attending PT so dc at this time. Physical Therapy Plan Discharge Physical Therapy Discharge Reasons No Longer Attending PT Discharge Comments Pt cancelled last scheduled appointments and did not schedule further so d/c at this time.
== END 2019-09-12 16:14 ==
LOC: PHYS 15:15
PROVIDERS: PCP Family Medicine; Visit Provider Physical Medicine & Rehabilitation
DX: M47.817 Spondylosis without myelopathy or radiculopathy, lumbosacral region (principal); M54.6 Pain in thoracic spine; G89.29 Other chronic pain; M47.24 Other spondylosis with radiculopathy, thoracic region; R29.3 Abnormal posture; R53.1 Weakness; R26.2 Difficulty in walking, not elsewhere classified
CPT/HCPCS: 97010; 97014; 97110; 97140; 97162; 97530; 97535; G0283

== ENCOUNTER → 2019-08-02 15:48 | Outpatient (CLI) | payer MEDICARE, OTHER, SELFPAY ==
[2019-08-02 17:09] LABS: BUN Creatinine Ratio 20.6 (6-22); Blood Urea Nitrogen 35 mg/dL (7-17); Carbon Dioxide 26 mmol/L (22-32); Chloride 106 mmol/L (98-107); Estimated Glomerular Filt Rate 28.6 mL/min (>60); Glucose 136 mg/dL (80-110); HEMOLYSIS < 15 (0-50); Potassium 3.7 mmol/L (3.4-5.1); Sodium 141 mmol/L (137-145)
== END ==
PROVIDERS: Family Provider Family Medicine; PCP Family Medicine; Visit Provider Internal Medicine Cardiovascular Disease
DX: I10 Essential (primary) hypertension (principal)
CPT/HCPCS: 36415; 80048

== ENCOUNTER → 2019-08-08 12:39 | Outpatient (CLI) | payer MEDICARE, OTHER, SELFPAY ==
[2019-08-08 12:55] LABS: Add Manual Diff / Slide Review NO; Basophils Absolute Auto 0 /uL (0-100); Basophils Percent Auto 0.6 % (0-2); Eosinophils Absolute Auto 100 /uL (0-450); Eosinophils Percent Auto 1.8 % (2-4); Hematocrit 32.3 % (36-46); Hemoglobin 10.9 g/dL (12.0-16.0); Lymphocytes Absolute Auto 1200 /uL (1100-4500); Mean Corpuscular HGB Conc 33.8 % (30-36); Mean Corpuscular Hemoglobin 30.5 PG (26-34); Mean Corpuscular Volume 90.3 fL (80-100); Monocytes Absolute Auto 500 /uL (0-900); Neutrophils Absolute Auto 2300 /uL (1500-7000); Neutrophils Percent Auto 56.6 % (50-75); Platelet Count 132 X10^3/uL (150-400); Red Blood Cell Count 3.57 X10^6/uL (4.0-5.2); Red Cell Distribution Width 13.3 % (11.6-14.8)
[2019-08-08 13:34] VITALS: BP 141/76; PULSE 82; RESP 16; TEMP 36.7; O2SAT 98
[2019-08-08] MEDS: DARBEPOETIN 60 MCG/0.3 ML SYRINGE SUBCUT (13:57)
== END ==
PROVIDERS: Family Provider Family Medicine; PCP Family Medicine
DX: N18.3 Chronic kidney disease, stage 3 (moderate) (principal); D63.1 Anemia in chronic kidney disease
CPT/HCPCS: 36415; 82728; 85025; 96372; J0881

== ENCOUNTER → 2019-09-10 17:20 | Outpatient (CLI) | payer MEDICARE, OTHER, SELFPAY ==
[2019-09-10 17:41] LABS: Hemoglobin 11.5 g/dL (12.0-16.0)
== END ==
PROVIDERS: Family Provider Family Medicine; PCP Family Medicine
DX: N18.3 Chronic kidney disease, stage 3 (moderate) (principal)
CPT/HCPCS: 36415; 85014; 85018

== ENCOUNTER → 2019-09-12 12:55 | Outpatient (CLI) | payer MEDICARE, OTHER, SELFPAY ==
[2019-09-12 15:18] LABS: RBC Urine None Seen (0-5/HPF)
[2019-09-12 15:21] LABS: Appearance Urine UA CLEAR; Bilirubin Urine UA NEGATIVE (NEGATIVE); Color Urine UA YELLOW; Glucose Urine UA NEGATIVE (Negative); Ketones Urine UA NEGATIVE (NEGATIVE); Leukocyte Esterase Urine UA 1+ (NEGATIVE); Nitrite Urine UA NEGATIVE (Negative); Occult Blood Urine UA NEGATIVE (Negative); Protein Urine UA NEGATIVE (Negative); Specific Gravity Urine UA <=1.005 (1.000-1.035); Urobilinogen Urine UA 0.2 E.U./dL (0.2)
[2019-09-12 15:43] LABS: pH Urine UA 5.5 (4.5-8.0)
[2019-09-12 15:46] LABS: Bacteria Urine Many (>30); Culture Indicated Urine Specimen Cultured; WBC Urine 5-10/HPF (0-5/HPF)
== END ==
PROVIDERS: Family Provider Family Medicine; PCP Family Medicine; Visit Provider Hospitalist
DX: M54.9 Dorsalgia, unspecified (principal)
CPT/HCPCS: 81001; 87077; 87086; 87186

== ENCOUNTER → 2019-09-24 13:42 | Outpatient (CLI) | payer MEDICARE, OTHER, SELFPAY ==
[2019-09-24 14:07] LABS: Hematocrit 32.1 % (36-46); Hemoglobin 10.9 g/dL (12.0-16.0)
== END ==
PROVIDERS: PCP Family Medicine
DX: N18.3 Chronic kidney disease, stage 3 (moderate) (principal); N39.0 Urinary tract infection, site not specified
CPT/HCPCS: 36415; 85014; 85018; 87086

== ENCOUNTER → 2019-09-25 13:05 | Outpatient (CLI) | payer MEDICARE, OTHER, SELFPAY ==
[2019-09-25] MEDS: DARBEPOETIN 60 MCG/0.3 ML SYRINGE SUBCUT (13:27)
[2019-09-25 13:28] VITALS: BP 119/70; PULSE 71; RESP 18; TEMP 36.8; O2SAT 96
== END ==
PROVIDERS: PCP Family Medicine
DX: N18.3 Chronic kidney disease, stage 3 (moderate) (principal); D63.1 Anemia in chronic kidney disease
CPT/HCPCS: 96372; J0881

== ENCOUNTER → 2019-10-02 12:05 | Outpatient (CLI) | payer MEDICARE, OTHER, SELFPAY ==
--- NOTE | 2019-10-02 12:18 | DI.RAD.S_ITS ---
PROCEDURE: XR KNEE RT 3V INDICATIONS: right knee pain TECHNIQUE: 3 views of the knee were acquired. COMPARISON: None. FINDINGS: Bones: No fractures or dislocations. No suspicious bony lesions. Mild degenerative osteoarthritis medial compartment Soft tissues: No joint effusion. No suspicious soft tissue calcifications. IMPRESSION: Mild degenerative osteoarthritis without trauma, joint effusion or loose body. Dictated by: Maykel Jones M.D. on 10/02/2019 at 13:16 Approved by: Maykel Jones M.D. on 10/02/2019 at 13:17
[2019-10-02 13:05] LABS: Add Manual Diff / Slide Review NO; Basophils Absolute Auto 0 /uL (0-100); Basophils Percent Auto 1.1 % (0-2); Eosinophils Absolute Auto 200 /uL (0-450); Eosinophils Percent Auto 5.3 % (2-4); Hematocrit 35.2 % (36-46); Hemoglobin 11.8 g/dL (12.0-16.0); Lymphocytes Absolute Auto 1400 /uL (1100-4500); Mean Corpuscular HGB Conc 33.4 % (30-36); Mean Corpuscular Hemoglobin 30.1 PG (26-34); Mean Corpuscular Volume 89.9 fL (80-100); Monocytes Absolute Auto 500 /uL (0-900); Monocytes Percent Auto 13.5 % (3-14); Neutrophils Absolute Auto 1700 /uL (1500-7000); Neutrophils Percent Auto 44.1 % (50-75); Platelet Count 181 X10^3/uL (150-400); Red Blood Cell Count 3.92 X10^6/uL (4.0-5.2); Red Cell Distribution Width 14.5 % (11.6-14.8); White Blood Cell Count 3.8 X10^3/uL (4.5-11.0)
[2019-10-02 13:37] LABS: Appearance Urine UA SL CLOUDY; Bilirubin Urine UA NEGATIVE (NEGATIVE); Color Urine UA YELLOW; Glucose Urine UA NEGATIVE (Negative); Ketones Urine UA NEGATIVE (NEGATIVE); Leukocyte Esterase Urine UA 1+ (NEGATIVE); Nitrite Urine UA NEGATIVE (Negative); Occult Blood Urine UA NEGATIVE (Negative); Protein Urine UA TRACE (Negative); Specific Gravity Urine UA <=1.005 (1.000-1.035); Urobilinogen Urine UA 0.2 E.U./dL (0.2)
[2019-10-02 13:43] LABS: BUN Creatinine Ratio 21.9 (6-22); Blood Urea Nitrogen 35 mg/dL (7-17); Calcium 9.7 mg/dL (8.4-10.2); Carbon Dioxide 27 mmol/L (22-32); Chloride 108 mmol/L (98-107); Estimated Glomerular Filt Rate 30.7 mL/min (>60); Glucose 96 mg/dL (80-110); HEMOLYSIS < 15 (0-50); Potassium 4.4 mmol/L (3.4-5.1); Sodium 143 mmol/L (137-145)
[2019-10-02 13:54] LABS: Amorphous Sediment Urine 1+; Bacteria Urine Moderate (10-30); Culture Indicated Urine Specimen Cultured; Mucus Urine 1+ (Negative); RBC Urine 1-5/HPF (0-5/HPF); Renal Epithelial Cells Urine 0-1/HPF (0-1/HPF); Squamous Epithelial Cell Urine 1-5 /HPF (0-5/HPF); WBC Urine 5-10/HPF (0-5/HPF); pH Urine UA 5.5 (4.5-8.0)
== END ==
PROVIDERS: PCP Family Medicine; Visit Provider Nurse Practitioner Family
DX: I10 Essential (primary) hypertension (principal); M25.561 Pain in right knee; R10.9 Unspecified abdominal pain
CPT/HCPCS: 36415; 73562; 80048; 81001; 85025; 87086

== ENCOUNTER → 2019-10-08 15:14 | Outpatient (CLI) | payer MEDICARE, OTHER, SELFPAY ==
[2019-10-08 15:46] LABS: Hematocrit 34.6 % (36-46); Hemoglobin 11.7 g/dL (12.0-16.0)
[2019-10-08 16:33] LABS: HEMOLYSIS < 15 (0-50); Iron 82 ug/dL (37-170)
[2019-10-08 16:39] LABS: Creatinine Urine Random 112.5 mg/dL; Protein (Total) Urine Random 24 mg/dL (0-12); Protein Creatinine Ratio Urine 0.21 GRAM/24H
[2019-10-08 16:40] LABS: BUN Creatinine Ratio 20.6 (6-22); Blood Urea Nitrogen 33 mg/dL (7-17); Calcium 9.7 mg/dL (8.4-10.2); Carbon Dioxide 30 mmol/L (22-32); Chloride 105 mmol/L (98-107); Estimated Glomerular Filt Rate 30.7 mL/min (>60); Glucose 117 mg/dL (80-110); HEMOLYSIS < 15 (0-50); Potassium 4.6 mmol/L (3.4-5.1); Sodium 143 mmol/L (137-145)
[2019-10-08 16:44] LABS: Percent Iron Saturation 33 % (15-50); Total Iron Binding Capacity 252 ug/dL (265-497); Transferrin 202 mg/dL (206-381)
[2019-10-08 17:13] LABS: Ferritin 91.9 ng/mL (11.1-264)
[2019-10-10 14:21] LABS: Parathyroid Hormone Int 103 pg/mL (14-64)
== END ==
PROVIDERS: PCP Family Medicine; Visit Provider Student in an Organized Health Care Education/Training Program
DX: D50.0 Iron deficiency anemia secondary to blood loss (chronic) (principal); N05.9 Unspecified nephritic syndrome with unspecified morphologic changes; D64.9 Anemia, unspecified; N25.81 Secondary hyperparathyroidism of renal origin; R80.9 Proteinuria, unspecified; N18.3 Chronic kidney disease, stage 3 (moderate)
CPT/HCPCS: 36415; 80048; 82570; 82728; 83540; 83550; 83970; 84156; 85014; 85018

== ENCOUNTER → 2019-10-09 14:10 | Outpatient (CLI) | payer MEDICARE, OTHER, SELFPAY ==
--- NOTE | 2019-10-09 14:26 | DI.CT.S_ITS ---
PROCEDURE: CT ABDOMEN PELVIS WO CON INDICATIONS: ongoing llq pain TECHNIQUE: Noncontrast 5 mm thick sections acquired from the diaphragms to the symphysis. 5 mm coronal and sagittal reformats were then performed. For radiation dose reduction, the following was used: automated exposure control, adjustment of mA and/or kV according to patient size. COMPARISON: [facility], CT, ABDOMEN/PELVIS WITHOUT CONTRAS, 08/19/2017, 12:12. FINDINGS: Image quality: Limited by absence of oral and intravenous contrast.. ABDOMEN: Lung bases: Lung bases are clear. Heart size is normal. Solid organs: Liver is normal in size. Gallbladder appears normal. Pancreas is normal in contours. Spleen is normal in size. No adrenal nodules. Kidneys are normal in size, without hydronephrosis or nephrolithiasis. Peritoneum and bowel: Unenhanced bowel loops demonstrate normal wall thickness and caliber. No free fluid or air. Nodes and vessels: No retroperitoneal or mesenteric adenopathy by size criteria. Aorta and inferior vena cava are normal in caliber. Miscellaneous: No ventral hernias. PELVIS: Genitourinary: Bladder wall thickness is normal. Miscellaneous: No inguinal hernias or adenopathy. Sigmoid diverticulosis is prominent, but no definite acute diverticulitis is found. Quality visualization is somewhat limited by absence of both oral and intravenous contrast. Bones: No suspicious bony lesions. No vertebral body compression fractures. IMPRESSION: Extensive sigmoid diverticulosis, no definite acute diverticulitis. Quality visualization is somewhat limited by absence of both oral and intravenous contrast. Dictated by: Maykel Jones M.D. on 10/09/2019 at 16:09 Approved by: Maykel Jones M.D. on 10/09/2019 at 16:20
== END ==
PROVIDERS: PCP Family Medicine; Referring Provider Student in an Organized Health Care Education/Training Program; Visit Provider Nurse Practitioner Family
DX: R10.32 Left lower quadrant pain (principal); K57.30 Diverticulosis of large intestine without perforation or abscess without bleeding; N18.3 Chronic kidney disease, stage 3 (moderate)
CPT/HCPCS: 74176

== ENCOUNTER → 2019-10-24 12:15 | Outpatient (CLI) | payer MEDICARE, OTHER, SELFPAY ==
[2019-10-24 12:43] LABS: Hematocrit 34.9 % (36-46)
== END ==
PROVIDERS: PCP Family Medicine
DX: N18.3 Chronic kidney disease, stage 3 (moderate) (principal)
CPT/HCPCS: 36415; 85014; 85018

== ENCOUNTER → 2019-10-24 13:02 | Outpatient (CLI) | payer MEDICARE, OTHER, SELFPAY ==
[2019-10-24 13:20] VITALS: BP 151/81; PULSE 64; RESP 18; TEMP 36.7; O2SAT 100
[2019-10-24 14:11] VITALS: BP 136/69; PULSE 64; RESP 18; TEMP 36.3; O2SAT 98
--- NOTE | 2019-10-24 14:29 | P.PNONC_ITS ---
PN -Subjective Interval history: Diagnosis: Anemia due to renal insufficiency. Previous treatment: Aranesp, she is currently on 60 mcg Interval history: The patient is an 84-year-old woman whose had a longstanding history of renal insufficiency and anemia. She has been treated with Aranesp. Her last several doses have been held because her hemoglobin has been good. She did require 1 injection in September. She does feel little bit better shortly after the injections. She still struggles with dyspnea on exertion. She is not having a ny chest pain or pressure. She did have a blood pressure medication increased recently and since then, she has had a little bit of dizziness when standing. She denies any unusual bleeding or bruising. She has not required any transfusions. No fevers chills or sweats. She denies any other changes in her health. - Patient Self-Reported Symptoms SR Constitution: Fatigue/Malaise SR respiratory issues: Shortness of breath SR Cardiovascular issues: Shortness of breath with activity or lying flat SR Genitourinary issues: Incontinence SR Neuro issues: Headache, Lightheaded/dizzy Home Medications and Allergies Home Medications Medication Instructions Recorded Confirmed Type Vitamin E (VITAMIN E) 400 units PO QDAY #0 04/17/13 10/24/19 History cyanocobalamin (vitamin B-12) 1,000 mcg PO QDAY #0 07/07/16 10/24/19 History ferrous gluconate 236 mg PO QAM #0 09/08/16 10/24/19 History [PAPAYA ENZYME] 3 tab PO QAM PRN #0 05/18/18 10/24/19 History [CALCIUM/MAG/POTAS.] 1 tab PO QDAY #0 10/27/18 10/24/19 History cholecalciferol (vitamin D3) 50 6,000 unit PO DAILY cap 10/27/18 10/24/19 History mcg (2,000 unit) capsule multivitamin 1 tab PO QDAY #0 tab 10/27/18 10/24/19 History atorvastatin 20 mg tablet 20 mg PO DAILY 04/27/19 10/24/19 History albuterol sulfate [Ventolin HFA] 1 inh INHALATION PRN PRN 08/28/19 10/24/19 History terazosin 2 mg PO BEDTIME 08/28/19 10/24/19 History carvedilol 12.5 mg tablet 25 mg PO BID tab 09/12/19 10/24/19 History lisinopril 10 mg tablet 20 mg PO BID tab 10/02/19 10/24/19 History oxycodone-acetaminophen 7.5 mg-325 1 tab PO BID PRN #60 tab 10/05/19 10/24/19 Rx mg tablet Allergies Allergy/AdvReac Type Severity Reaction Status Date / Time belladonna alkaloids Allergy Severe severe Verified 10/12/19 14:30 [From BELLERGAL-S] swelling and itching ergotamine [From BELLERGAL-S] Allergy Severe severe Verified 10/12/19 14:30 swelling and itching phenobarbital Allergy Severe severe Verified 10/12/19 14:30 [From BELLERGAL-S] swelling and itching shellfish derived AdvReac Severe ill, n/v Verified 10/12/19 14:30 [SHELLFISH DERIVED] Exam Vital signs: Vital Signs Temp Pulse Resp BP Pulse Ox 10/24/19 14:11 97.3 F L 64 18 136/69 98 10/24/19 13:20 98.1 F 64 18 151/81 H 100 Intake and Output 10/23/19 10/24/19 10/24/19 23:59 07:59 15:59 Other: Weight 63 kg Patient Weight 10/24/19 23:59 Weight 63 kg - Constitutional positive no acute distress, positive average body habitus - Routine HEENT Exam Head: Present: normocephalic, atraumatic Eye: Present: EOMI, PERRL. Absent: conjunctival icterus, scleral injection ENT: Present: mucous membranes moist, oropharynx clear - Routine Neck Exam Present: supple. Absent: lymphadenopathy, thyromegaly - Routine Respiratory Exam Present: Clear to auscultation bilaterally. Absent: rales, wheezes - Routine Cardiovascular Exam Present: RRR, S1, S2. Absent: murmur - Routine Abdominal Exam Present: soft, normoactive bowel sounds. Absent: tenderness, organomegaly, mass - Routine Extremities Exam Absent: cyanosis, clubbing, edema - Routine Back/Spine Exam Back/Spine: Absent: vertebral tenderness - Routine Skin Exam Present: intact. Absent: petechiae, rash - Routine Neurological Exam Present: alert, oriented X3 - Routine Psychiatric Exam Present: normal affect, normal thought process Results - Imaging Additional studies: Procedures Repair of entropion or ectropion with lid reconstruction (06/27/13) Assessment and Plan (1) Anemia in stage 3 chronic kidney disease Problem details: 83-year-old woman with renal insufficiency and a moderate normocytic anemia. She has been tolerating Aranesp well and her hemoglobin has improved. She will continue with Aranesp every other week. She will return to clinic in about 3 months for follow-up. Current visit: No Status: Chronic
== END ==
PROVIDERS: PCP Family Medicine
DX: N18.3 Chronic kidney disease, stage 3 (moderate) (principal); D63.1 Anemia in chronic kidney disease
CPT/HCPCS: 36415; 85014; 85018; 99214

== ENCOUNTER → 2019-11-20 12:48 | Outpatient (CLI) | payer MEDICARE, OTHER, SELFPAY | PROVIDERS: PCP Family Medicine | DX: N18.3 Chronic kidney disease, stage 3 (moderate) (principal); D63.1 Anemia in chronic kidney disease ==

== ENCOUNTER → 2019-12-04 13:12 | Outpatient (CLI) | payer MEDICARE, OTHER, SELFPAY ==
--- NOTE | 2019-12-04 13:52 | PC.NURSE ---
HGB 11.8, PATIENT NOTIFIED THAT NO INJECTION NECESSARY.
== END ==
PROVIDERS: PCP Family Medicine; Visit Provider Internal Medicine Hematology & Oncology
DX: N18.3 Chronic kidney disease, stage 3 (moderate) (principal); D63.1 Anemia in chronic kidney disease

== ENCOUNTER → 2019-12-18 12:32 | Outpatient (CLI) | payer MEDICARE, OTHER, SELFPAY ==
--- NOTE | 2019-12-18 13:13 | PC.NURSE ---
Addendum entered by Shy Reyes R.N. 12/18/19 14:57: ARANESP PARAMETERS: Assessment and Plan (1) Anemia in stage 3 chronic kidney disease Overveiw: 84-year-old woman with anemia of chronic kidney disease. Assessment: Patient has been on Aranesp injection on a as needed basis. I talked with her that the goal is trying to keep the hemoglobin level between 10 and 11. I pointed out to her again that injection with Aranesp is associated with increased risk of thromboembolism, cardiovascular disease, and possibly shorten people's life if hemoglobin level is above 11. Patient voiced understanding. I reviewed the lab tests with the patient. Follow up the last couple of months, her hemoglobin level has been persistently above 10. I talked with her that I will have her come back every 4 weeks for follow-up visit. Plan: RTC in 4 weeks, H/H, Aranesp 60 mcg subQ if HGB < 10 Signed By:<Electronically signed by Issa Feng MD> 12/18/19 [id number] Original Note: ARANESP PARAMETERS: Assessment and Plan (1) Anemia in stage 3 chronic kidney disease Problem details: 83-year-old woman with renal insufficiency and a moderate normocytic anemia. She has been tolerating Aranesp well and her hemoglobin has improved. She will continue with Aranesp. Her hemoglobin has dropped a little bit on every 3 week dosing. Will go back to every other week. She will return to clinic in about 3 months for follow-up. Current visit: No Status: Chronic 84-year-old woman with chronic renal insufficiency. She has been stable on Aranesp with an improvement in her red cell count. She will continue with 60 micro g every other week but hold it for hemoglobin over 11. She will return to clinic in about 3-4 months for follow-up. Signed By:<Electronically signed by Curly Rodríguez MD> 05/29/19 [id number]
[2019-12-18 13:33] VITALS: BP 131/71; PULSE 67; RESP 18; TEMP 36.9; O2SAT 98
--- NOTE | 2019-12-18 13:50 | ONC.PN ---
PN -Subjective Interval history: ID/CC: 84 year old female with anemia of chronic kidney disease. Previous treatment: Aranesp, she is currently on 60 mcg Interval history: Clinically patient has been doing well. She has not required Aranesp injection for the past 2 months. She continues to complain shortness of breath while on exertion. She said that is an old problem and nobody has ever figured out what could have gone wrong. She denies any nausea vomiting. She denies any abdominal pain diarrhea or constipation. She is complaining some back pain. - Patient Self-Reported Symptoms SR Constitution: Fatigue/Malaise, Night Sweats SR ears, nose, mouth, throat issues: Congestion, Cough SR respiratory issues: Shortness of breath SR Cardiovascular issues: Shortness of breath with activity or lying flat SR Gastrointestinal issues: Constipation, Abdominal pain SR Neuro issues: Headache, Lightheaded/dizzy SR Hematologic issues: Bleeding/bruising - Additional ROS All systems PM: reviewed and no additional remarkable complaints except as stated Home Medications and Allergies Home Medications Medication Instructions Recorded Confirmed Type Vitamin E (VITAMIN E) 400 units PO QDAY #0 04/17/13 12/18/19 History cyanocobalamin (vitamin B-12) 1,000 mcg PO QDAY #0 07/07/16 12/18/19 History ferrous gluconate 236 mg PO QAM #0 09/08/16 12/18/19 History [PAPAYA ENZYME] 3 tab PO QAM PRN #0 05/18/18 12/18/19 History [CALCIUM/MAG/POTAS.] 1 tab PO QDAY #0 10/27/18 12/18/19 History cholecalciferol (vitamin D3) 50 6,000 unit PO DAILY cap 10/27/18 12/18/19 History mcg (2,000 unit) capsule multivitamin 1 tab PO QDAY #0 tab 10/27/18 12/18/19 History atorvastatin 20 mg tablet 20 mg PO DAILY 04/27/19 12/18/19 History carvedilol 12.5 mg tablet 12.5 mg PO BID tab 09/12/19 12/18/19 History lisinopril 10 mg tablet 20 mg PO BID tab 10/02/19 12/18/19 History oxycodone-acetaminophen 7.5 mg-325 1 tab PO BID PRN #60 tab 11/21/19 12/18/19 Rx mg tablet terazosin 5 mg capsule 5 mg PO BEDTIME 12/05/19 12/18/19 History Allergies Allergy/AdvReac Type Severity Reaction Status Date / Time belladonna alkaloids Allergy Severe severe Verified 12/05/19 15:50 [From BELLERGAL-S] swelling and itching ergotamine [From BELLERGAL-S] Allergy Severe severe Verified 12/05/19 15:50 swelling and itching phenobarbital Allergy Severe severe Verified 12/05/19 15:50 [From BELLERGAL-S] swelling and itching shellfish derived AdvReac Severe ill, n/v Verified 12/05/19 15:50 [SHELLFISH DERIVED] Exam Vital signs: Last Vital Signs Temp 98.4 F 12/18/19 13:33 Pulse 67 12/18/19 13:33 Resp 18 12/18/19 13:33 BP 131/71 12/18/19 13:33 Pulse Ox 98 12/18/19 13:33 ECOG 1 Narrative: Gen: WDWN, NAD, pleasant and cooperative. HEENT: NCAT, EOMI, PERRLA, anicteric sclera. Neck: Supple, No palpable thyromegaly or lymphadenopathy. Respiratory: CTAB, no wheezes audible. No JVD Cardiovascular: RRR, S1 and S2 normal, no M/G/R. Abdomen: Soft, no palpable organomegaly, mild tenderness elicited in the abdomen without specific location. Extremities: No LE pitting edema. Lymphatic: no palpable lymph nodes in the neck, axillae, or groins. Neurological: AOx3, CN II-XII grossly intact. No focal motor or sensory deficit. Psychiatric: Good judgment and insight; normal affect; normal thought process; cooperative, no depression, no anxiety. Results - Labs Hemoglobin 11, hematocrit 32. - Imaging Additional studies: Procedures Repair of entropion or ectropion with lid reconstruction (06/27/13) Assessment and Plan (1) Anemia in stage 3 chronic kidney disease Overveiw: 84-year-old woman with anemia of chronic kidney disease. Assessment: Patient has been on Aranesp injection on a as needed basis. I talked with her that the goal is trying to keep the hemoglobin level between 10 and 11. I pointed out to her again that injection with Aranesp is associated with increased risk of thromboembolism, cardiovascular disease, and possibly shorten people's life if hemoglobin level is above 11. Patient voiced understanding. I reviewed the lab tests with the patient. Follow up the last couple of months, her hemoglobin level has been persistently above 10. I talked with her that I will have her come back every 4 weeks for follow-up visit. Plan: RTC in 4 weeks, H/H, Aranesp 60 mcg subQ if HGB < 10
== END ==
PROVIDERS: PCP Student in an Organized Health Care Education/Training Program; Referring Provider Student in an Organized Health Care Education/Training Program; Visit Provider Internal Medicine Hematology & Oncology
DX: N18.3 Chronic kidney disease, stage 3 (moderate) (principal); D63.1 Anemia in chronic kidney disease
CPT/HCPCS: 99214

== ENCOUNTER → 2019-12-25 15:15 | Outpatient (CLI) | payer MEDICARE, OTHER, SELFPAY | PROVIDERS: PCP Student in an Organized Health Care Education/Training Program; Referring Provider Student in an Organized Health Care Education/Training Program; Visit Provider Student in an Organized Health Care Education/Training Program | DX: Z12.31 Encounter for screening mammogram for malignant neoplasm of breast (principal); Z53.9 Procedure and treatment not carried out, unspecified reason | CPT/HCPCS: 77063; 77067 ==

== ENCOUNTER → 2020-01-09 12:47 | Outpatient (CLI) | payer MEDICARE, OTHER, SELFPAY ==
--- NOTE | 2020-01-09 | DI.MG.S_ITS ---
BILATERAL DIGITAL DIAGNOSTIC MAMMOGRAM 3D/2D WITH AUGMENTATION: 01/09/2020 CLINICAL: Left breast hardening. Comparison is made to exams dated: 12/15/2018 mammogram, 12/08/2017 mammogram, and 11/10/2016 mammogram - [facility]. There are scattered fibroglandular elements in both breasts. 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 There is a new intracapsular fluid collection adjacent to the left breast implant. No significant masses, calcifications, or other findings are seen in either breast. IMPRESSION: INCOMPLETE: NEEDS ADDITIONAL IMAGING EVALUATION Fidings suggesting new intracapsular rupture of the left implant. It is unclear if this finding corresponds with the patient's left breast fullness and induration. A targeted ultrasound of the left breast is recommended and will be performed immediately following this exam. There is no mammographic evidence of malignancy. This exam was interpreted at Station ID: [id number]. NOTE: For mammograms, a report in lay terms will be sent to the patient. Approximately 15% of breast malignancies will not be visualized mammographically. In the management of a palpable breast mass, a negative mammogram must not discourage biopsy of a clinically suspicious lesion. Electronically Signed By: Elizabeth gold/:01/09/2020 13:56:44 ACR BI-RADS Category 0: Incomplete [id number]
--- NOTE | 2020-01-09 12:48 | DI.US.S_ITS ---
ULTRASOUND OF LEFT BREAST: 01/09/2020 CLINICAL: Palp lump. Comparison is made to exams dated: 01/09/2020 mammogram, 12/15/2018 mammogram, 12/08/2017 mammogram, 11/10/2016 mammogram, 11/06/2015 mammogram, and 11/05/2014 mammogram - [facility]. Real-time ultrasound of the left breast was performed on the areas of interest. Mathis scale images of the real-time examination were reviewed. IMPRESSION: INCOMPLETE: NEEDS ADDITIONAL IMAGING EVALUATION There is no mammographic or sonographic abnormality seen in the left breast to correspond with the area of clinical concern. Clinical follow up is recommended. Additionally, breast MRI could be used to further characterize suspected left breat implant ruptue and patient's symptoms of breast induration and fullness if clinically indicated. This exam was interpreted at Station ID: [id number]. Electronically Signed By: Elizabeth Mario M.D. lk/:01/11/2020 07:29:46 Entry: - 01/11/2020 07:29:46 letter sent: Need MRI Ultrasound BI-RADS: 0 Indeterminate
== END ==
PROVIDERS: PCP Student in an Organized Health Care Education/Training Program; Referring Provider Student in an Organized Health Care Education/Training Program; Visit Provider Student in an Organized Health Care Education/Training Program
DX: R92.8 Other abnormal and inconclusive findings on diagnostic imaging of breast (principal); T85.43XA Leakage of breast prosthesis and implant, initial encounter; N64.89 Other specified disorders of breast; N63.20 Unspecified lump in the left breast, unspecified quadrant
CPT/HCPCS: 76642; 77066; G0279

== ENCOUNTER → 2020-01-15 13:05 | Outpatient (CLI) | payer MEDICARE, OTHER, SELFPAY ==
[2020-01-15 13:30] VITALS: BP 135/70; PULSE 64; RESP 16; TEMP 36.3; O2SAT 95
--- NOTE | 2020-01-15 13:48 | ONC.PN ---
PN -Subjective Interval history: ID/CC: 85 year old female with anemia of chronic kidney disease. Previous treatment: Aranesp, she is currently on 60 mcg prn Interval history: Clinically patient has been doing well. Presents here today for scheduled follow-up visit. Clinically she has been doing well. No new complaints. The only problem is her knee pain, and she is getting cortisone injection under the care of Dr. Gaalrza. Patient denies shortness of breath per. Denies chest pain. Denies abdominal pain. Denies diarrhea or constipation. - Patient Self-Reported Symptoms SR Constitution: Fatigue/Malaise SR respiratory issues: Shortness of breath SR Cardiovascular issues: Shortness of breath with activity or lying flat SR Gastrointestinal issues: Constipation SR Genitourinary issues: Incontinence SR Musculoskeletal issues: Back or neck pain SR Neuro issues: Lightheaded/dizzy SR Hematologic issues: Bleeding/bruising - Additional ROS All systems PM: reviewed and no additional remarkable complaints except as stated Home Medications and Allergies Home Medications Medication Instructions Recorded Confirmed Type Vitamin E (VITAMIN E) 400 units PO QDAY #0 04/17/13 01/15/20 History cyanocobalamin (vitamin B-12) 1,000 mcg PO QDAY #0 07/07/16 01/15/20 History ferrous gluconate 236 mg PO QAM #0 09/08/16 01/15/20 History [PAPAYA ENZYME] 3 tab PO QAM PRN #0 05/18/18 01/15/20 History [CALCIUM/MAG/POTAS.] 1 tab PO QDAY #0 10/27/18 01/15/20 History cholecalciferol (vitamin D3) 50 6,000 unit PO DAILY cap 10/27/18 01/15/20 History mcg (2,000 unit) capsule multivitamin 1 tab PO QDAY #0 tab 10/27/18 01/15/20 History atorvastatin 20 mg tablet 20 mg PO DAILY 04/27/19 01/15/20 History carvedilol 12.5 mg tablet 12.5 mg PO BID tab 09/12/19 01/15/20 History lisinopril 10 mg tablet 20 mg PO BID tab 10/02/19 01/15/20 History terazosin 5 mg capsule 5 mg PO BEDTIME 12/05/19 01/15/20 History oxycodone-acetaminophen 7.5 mg-325 1 tab PO BID PRN #60 tab 01/15/20 01/15/20 Rx mg tablet Allergies Allergy/AdvReac Type Severity Reaction Status Date / Time belladonna alkaloids Allergy Severe severe Verified 12/05/19 15:50 [From BELLERGAL-S] swelling and itching ergotamine [From BELLERGAL-S] Allergy Severe severe Verified 12/05/19 15:50 swelling and itching phenobarbital Allergy Severe severe Verified 12/05/19 15:50 [From BELLERGAL-S] swelling and itching shellfish derived AdvReac Severe ill, n/v Verified 12/05/19 15:50 [SHELLFISH DERIVED] Exam Vital signs: Vital Signs Temp Pulse Resp BP Pulse Ox 01/15/20 13:30 97.3 F L 64 16 135/70 95 Intake and Output 01/14/20 01/15/20 01/15/20 23:59 07:59 15:59 Other: Weight 63.5 kg Patient Weight 01/15/20 23:59 Weight 63.5 kg Narrative: ECOG 1 Gen: WDWN, NAD, pleasant and cooperative. HEENT: NCAT, EOMI, PERRLA, anicteric sclera. Neck: Supple, No palpable thyromegaly or lymphadenopathy. Respiratory: CTAB, no wheezes audible. No JVD Cardiovascular: RRR, S1 and S2 normal, no M/G/R. Abdomen: Soft, NTND, BS normal, no palpable organomegaly Extremities: No LE pitting edema. Lymphatic: no palpable lymph nodes in the neck, axillae Neurological: AOx3, CN II-XII grossly intact. No focal motor or sensory deficit. Psychiatric: Good affect, normal mood. Results - Labs 01/14/2020 Hemoglobin 10.4, hematocrit 30.0%. 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 Assessment: Patient has been on Aranesp injection on a as needed basis. I showed the patient the boxed warning of FDA label. She apparently did not remember the discussion I had during her previous visit. I emphasized again that the goal is to keep the hemoglobin level between 10 and 11. If it is more than 11, it is associated with increased risk of , thromboembolism, cardiovascular disease, and possibly shortened life. She voiced understanding Plan: No Aranesp injection indicated today. RTC in 4 weeks, H/H, Aranesp 60 mcg subQ if HGB < 10
== END ==
PROVIDERS: Family Provider Student in an Organized Health Care Education/Training Program; PCP Student in an Organized Health Care Education/Training Program; Referring Provider Student in an Organized Health Care Education/Training Program; Visit Provider Internal Medicine Hematology & Oncology
DX: N18.3 Chronic kidney disease, stage 3 (moderate) (principal); D63.1 Anemia in chronic kidney disease
CPT/HCPCS: 99214

== ENCOUNTER → 2020-01-17 08:01 | Outpatient (CLI) | payer MEDICARE, OTHER, SELFPAY ==
--- NOTE | 2020-01-17 08:02 | DI.MRI.S_ITS ---
BREAST MRI OF BOTH BREASTS: 01/17/2020 CLINICAL: Suspect implant rupture. PROCEDURE: MR BREAST BI WO CON INDICATIONS: Left breast induration/fullness. Concern for left breast implant rupture. TECHNIQUE: The patient was placed prone in a dedicated breast imaging coil. Axial bilateral STIR, axial and sagittal STIR with water saturation (silicone selective), sagittal T2 fast spin echo with fat saturation, and coronal T2 fast spin echo without fat saturation sequences were acquired. COMPARISON: [facility], CT, CT ABDOMEN PELVIS WO CON, 10/09/2019, 14:19. [facility], BILATERAL SCREENING MAMMOGRAM, 11/10/2016, 10:55. [facility], 2D BILATERAL SCREENING MAMMO, 12/08/2017, 11:02. [facility], US BREAST LT LIMITED, 01/09/2020, 14:01. [facility], MM DIAGNOSTIC MAMMO IMPLANT BI, 01/09/2020, 13:09. FINDINGS: Image quality: Good. Artifact degrades the sagittal STIR silicone selective sequences. Postcontrast images were not performed as the exam was terminated early due to patient discomfort. Right breast: Retropectoral silicone implant with intracapsular and extracapsular rupture. No enlarged axillary lymph nodes identified. Left breast: Retropectoral silicone implant with intracapsular rupture. There is a mild amount of edema signal at the posterior and inferior aspect of the implant. No extracapsular rupture identified. Evaluation of the left breast induration is limited without IV contrast. No enlarged axillary lymph nodes identified. IMPRESSION: 1. Right breast chronic extracapsular implant rupture. 2. Left breast intracapsular rupture. Mild amount of edema signal posterior and inferior to the left breast implant. This could account for the patient's symptoms of induration and fullness. 3. Evaluation for breast cancer is limited without IV contrast. Recommend continued clinical followup of the left breast induration/fullness. If clinically indicated breast MRI with IV contrast could be performed if the patient is able to tolerate. BIRADS 2. Dictated by: Gurwinder Steiner M.D. on 01/17/2020 at 10:27 This exam was interpreted at Station ID: [id number]. Electronically Signed By: Gurwinder tSeiner M.D. slc/:01/17/2020 10:56:39 letter sent: Clinical Evaluation ACR BI-RADS Category 2: Benign Finding(s) [id number]
== END ==
PROVIDERS: Family Provider Student in an Organized Health Care Education/Training Program; PCP Student in an Organized Health Care Education/Training Program; Referring Provider Student in an Organized Health Care Education/Training Program; Visit Provider Student in an Organized Health Care Education/Training Program
DX: N64.51 Induration of breast (principal); T85.43XA Leakage of breast prosthesis and implant, initial encounter
CPT/HCPCS: 77047

== ENCOUNTER → 2020-01-22 17:46 | Outpatient (CLI) | payer MEDICARE, OTHER, SELFPAY ==
--- NOTE | 2020-01-22 | DI.MRI.S_ITS ---
PROCEDURE: MR KNEE RT WO CON INDICATIONS: UNSPECIFIED INTERNAL DERANGEMENT OF RIGHT KNEE TECHNIQUE: Noncontrast sagittal PD fast spin echo and T2 fast spin echo with fat saturation, sagittal 3-D FLASH with fat saturation; coronal T1 spin echo and PD fast spin echo with fat saturation, and axial PD fast spin echo with fat saturation through the knee. COMPARISON: None. FINDINGS: Image quality: Excellent. Menisci: Medial meniscal tear involving the body with partial extrusion and abnormal signal extending to the undersurface in periphery. Possible displaced meniscal fragment within the medial gutter, although recommend arthroscopic correlation is necessary. Lateral meniscus intact. Cruciate ligaments: Anterior cruciate ligament appears intact. Posterior cruciate ligament appears intact. Medial structures: The medial collateral ligament appears intact. Semimembranosus insertional tendinopathy. Visualized portions of the pes anserinus tendons appear normal. No abnormal bursal fluid. Lateral structures: The lateral collateral ligament intact. Biceps femoris tendon appears intact. Popliteus tendon grossly unremarkable. Iliotibial band appears intact. Anterior structures: Quadriceps tendon intact. Medial and lateral patellofemoral ligaments intact. There is mild patellar tendinopathy. Prepatellar and superficial infrapatellar subcutaneous edema/fluid. Bones and cartilage: No focal marrow contusion or discrete low signal fracture line. Within the medial compartment, mild diffuse partial-thickness loss of the femoral and tibial articular cartilage without focal defect. Within the lateral compartment, no cartilage defect identified Within the patellofemoral compartment, no focal cartilage defects seen. Joint space: Large joint effusion. Partially ruptured Tao's cyst measuring approximately 3-4 cm the cephalocaudad dimension. No specific evidence of intra-articular loose body. IMPRESSION: Poorly-defined, medial meniscal tear involving the body with partial extrusion. Possible displaced meniscal fragment in the region of the medial gutter, recommend arthroscopic correlation if the clinically necessary. Mild patellar tendinopathy Mild degenerative joint disease Large joint effusion Partially ruptured Tao's cyst Dictated by: Branden Pressley M.D. on 01/23/2020 at 11:09 Approved by: Branden Pressley M.D. on 01/23/2020 at 11:29
== END ==
PROVIDERS: Family Provider Student in an Organized Health Care Education/Training Program; PCP Student in an Organized Health Care Education/Training Program; Referring Provider Orthopaedic Surgery; Visit Provider Orthopaedic Surgery
DX: M25.561 Pain in right knee (principal); S83.241A Other tear of medial meniscus, current injury, right knee, initial encounter; M17.11 Unilateral primary osteoarthritis, right knee; M25.461 Effusion, right knee; M66.0 Rupture of popliteal cyst; G89.29 Other chronic pain
CPT/HCPCS: 73721

== ENCOUNTER → 2020-01-30 16:02 | Outpatient (CLI) | payer MEDICARE, OTHER, SELFPAY ==
[2020-01-30 16:26] LABS: Hematocrit 33.4 % (36-46); Hemoglobin 11.4 g/dL (12.0-16.0)
[2020-01-30 16:45] LABS: BUN Creatinine Ratio 18.3 (6-22); Blood Urea Nitrogen 39 mg/dL (7-17); Calcium 9.6 mg/dL (8.4-10.2); Carbon Dioxide 29 mmol/L (22-32); Chloride 102 mmol/L (98-107); Glucose 130 mg/dL (80-110); HEMOLYSIS < 15 (0-50); Sodium 142 mmol/L (137-145)
== END ==
PROVIDERS: Internal Medicine Hematology & Oncology; Family Provider Student in an Organized Health Care Education/Training Program; PCP Student in an Organized Health Care Education/Training Program; Referring Provider Internal Medicine Cardiovascular Disease; Visit Provider Internal Medicine Cardiovascular Disease
DX: I10 Essential (primary) hypertension (principal); N18.3 Chronic kidney disease, stage 3 (moderate)
CPT/HCPCS: 36415; 80048; 85014; 85018

== ENCOUNTER → 2020-02-22 17:47 | Outpatient (CLI) | payer MEDICARE, OTHER, SELFPAY ==
[2020-02-22 18:03] LABS: Hematocrit 32.6 % (36-46); Hemoglobin 11.2 g/dL (12.0-16.0)
[2020-02-22 18:14] LABS: BUN Creatinine Ratio 25.8 (6-22); Blood Urea Nitrogen 47 mg/dL (7-17); Calcium 9.3 mg/dL (8.4-10.2); Carbon Dioxide 26 mmol/L (22-32); Chloride 107 mmol/L (98-107); Estimated Glomerular Filt Rate 26.4 mL/min (>60); Glucose 99 mg/dL (80-110); HEMOLYSIS < 15 (0-50); Potassium 3.9 mmol/L (3.4-5.1); Sodium 142 mmol/L (137-145)
== END ==
PROVIDERS: Internal Medicine Hematology & Oncology; Family Provider Student in an Organized Health Care Education/Training Program; PCP Student in an Organized Health Care Education/Training Program; Referring Provider Student in an Organized Health Care Education/Training Program; Visit Provider Student in an Organized Health Care Education/Training Program
DX: N05.9 Unspecified nephritic syndrome with unspecified morphologic changes (principal); N18.3 Chronic kidney disease, stage 3 (moderate)
CPT/HCPCS: 36415; 80048; 85014; 85018

== ENCOUNTER → 2020-04-11 14:37 | Outpatient (CLI) | payer MEDICARE, OTHER, SELFPAY ==
[2020-04-11 16:11] LABS: Hematocrit 29.6 % (36-46); Hemoglobin 10.2 g/dL (12.0-16.0)
[2020-04-11 16:46] LABS: HEMOLYSIS < 15 (0-50); Iron 76 ug/dL (37-170)
[2020-04-11 16:48] LABS: BUN Creatinine Ratio 20.6 (6-22); Blood Urea Nitrogen 40 mg/dL (7-17); Calcium 9.2 mg/dL (8.4-10.2); Carbon Dioxide 25 mmol/L (22-32); Chloride 101 mmol/L (98-107); Estimated Glomerular Filt Rate 24.5 mL/min (>60); Glucose 101 mg/dL (80-110); HEMOLYSIS < 15 (0-50); Potassium 3.7 mmol/L (3.4-5.1); Sodium 138 mmol/L (137-145)
[2020-04-11 16:56] LABS: Percent Iron Saturation 29 % (15-50); Total Iron Binding Capacity 264 ug/dL (265-497); Transferrin 184 mg/dL (206-381)
[2020-04-11 17:23] LABS: Ferritin 162 ng/mL (11-264)
[2020-04-12 10:08] LABS: Parathyroid Hormone Int 127 pg/mL (15-65)
== END ==
PROVIDERS: Family Provider Student in an Organized Health Care Education/Training Program; PCP Student in an Organized Health Care Education/Training Program; Referring Provider Student in an Organized Health Care Education/Training Program; Visit Provider Student in an Organized Health Care Education/Training Program
DX: N05.9 Unspecified nephritic syndrome with unspecified morphologic changes (principal); D50.0 Iron deficiency anemia secondary to blood loss (chronic); D64.9 Anemia, unspecified; N25.81 Secondary hyperparathyroidism of renal origin
CPT/HCPCS: 36415; 80048; 82728; 83540; 83550; 83970; 85014; 85018

== ENCOUNTER → 2020-04-30 13:15 | Outpatient (CLI) | payer MEDICARE, OTHER, SELFPAY ==
[2020-04-30 13:33] VITALS: BP 134/77; PULSE 69; RESP 18; TEMP 36.8; O2SAT 98
--- NOTE | 2020-04-30 13:53 | ONC.PN ---
PN -Subjective Interval history: is a very pleasant 85-year-old lady who presents today for follow-up of anemia of chronic renal failure. She has been receiving Aranesp support for this. She was recently seen by Dr. Rodríguez in June of 2018. Since then she has received multiple Aranesp injections with a good response maintaining her hemoglobin between 10 and 11. She comes today for a follow-up visit. She notes continued dyspnea on exertion. She also has ongoing back pain. She is receiving epidural steroid injections for this. She has some fatigue. The symptoms are unchanged. She denies any bleeding, localized weakness, fever, chills or cough. All other systems are negative. Past medical history 1. DJD 2. History of diverticulosis 3. Hyperlipidemia 4. High blood pressure 5. Actinic keratoses 6. Chronic renal insufficiency 7. Previous surgeries include rectocele repair, laminectomy, hysterectomy, breast augmentation and LEEP procedure 8. History of Rooney's palsy 9. No family history of blood disorders 10. She is not a smoker or drinker. She is alone in the office today. Her sister lives nearby - Patient Self-Reported Symptoms SR Constitution: Fatigue/Malaise SR respiratory issues: Shortness of breath SR Cardiovascular issues: Shortness of breath with activity or lying flat SR Gastrointestinal issues: Diarrhea, Constipation SR Genitourinary issues: Incontinence SR Musculoskeletal issues: Back or neck pain SR Neuro issues: Difficulty balancing SR Hematologic issues: Bleeding/bruising Home Medications and Allergies Home Medications Medication Instructions Recorded Confirmed Type Vitamin E (VITAMIN E) 400 units PO QDAY #0 04/17/13 04/30/20 History cyanocobalamin (vitamin B-12) 1,000 mcg PO QDAY #0 07/07/16 04/30/20 History ferrous gluconate 236 mg PO QAM #0 09/08/16 04/30/20 History [PAPAYA ENZYME] 3 tab PO QAM PRN #0 05/18/18 04/30/20 History [CALCIUM/MAG/POTAS.] 1 tab PO QDAY #0 10/27/18 04/30/20 History cholecalciferol (vitamin D3) 50 6,000 unit PO DAILY cap 10/27/18 04/30/20 History mcg (2,000 unit) capsule multivitamin 1 tab PO QDAY #0 tab 10/27/18 04/30/20 History atorvastatin 20 mg tablet 20 mg PO DAILY 04/27/19 04/30/20 History carvedilol 12.5 mg tablet 12.5 mg PO BID tab 09/12/19 04/11/20 History lisinopril 10 mg tablet 20 mg PO BID tab 10/02/19 04/30/20 History terazosin 5 mg capsule 5 mg PO BEDTIME 12/05/19 04/30/20 History oxycodone-acetaminophen 7.5 mg-325 1 tab PO BID PRN #60 tab 03/12/20 04/11/20 Rx mg tablet Allergies Allergy/AdvReac Type Severity Reaction Status Date / Time belladonna alkaloids Allergy Severe severe Verified 04/11/20 13:38 [From BELLERGAL-S] swelling and itching ergotamine [From BELLERGAL-S] Allergy Severe severe Verified 04/11/20 13:38 swelling and itching phenobarbital Allergy Severe severe Verified 04/11/20 13:38 [From BELLERGAL-S] swelling and itching shellfish derived AdvReac Severe ill, n/v Verified 04/11/20 13:38 [SHELLFISH DERIVED] Exam Vital signs: Vital Signs Temp Pulse Resp BP Pulse Ox 04/30/20 13:33 98.2 F 69 18 134/77 98 Intake and Output 04/29/20 04/30/20 04/30/20 23:59 07:59 15:59 Other: Weight 61.9 kg Patient Weight 04/30/20 23:59 Weight 61.9 kg Narrative: She was awake, alert and oriented x3. She is walking with a walker and was steady in this arrangement. 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 She has been tolerating Aranesp well and her hemoglobin has improved. She will continue with Aranesp every other week. She will return to clinic in about 3 months for follow-up. Status: Chronic Her hemoglobin today is less than 11. She will receive an Aranesp injection. Will continue to check her counts every 2-4 weeks and will get her back in 2 months for follow-up. Of note is that her recent iron studies were good and she previously has had B12, folate, paraprotein workup and erythropoietin level. - Time Spent with Patient 15 minutes
[2020-04-30] MEDS: DARBEPOETIN 60 MCG/0.3 ML SYRINGE SUBCUT (14:17)
== END ==
PROVIDERS: Family Provider Student in an Organized Health Care Education/Training Program; PCP Student in an Organized Health Care Education/Training Program; Referring Provider Internal Medicine; Visit Provider Internal Medicine
DX: I12.9 Hypertensive chronic kidney disease with stage 1 through stage 4 chronic kidney disease, or unspecified chronic kidney disease (principal); N18.3 Chronic kidney disease, stage 3 (moderate); D63.1 Anemia in chronic kidney disease; R06.09 Other forms of dyspnea; R53.83 Other fatigue; M54.9 Dorsalgia, unspecified; E78.5 Hyperlipidemia, unspecified
CPT/HCPCS: 96372; 99213; J0881

== ENCOUNTER → 2020-05-02 12:38 | Outpatient (CLI) | payer MEDICARE, OTHER, SELFPAY ==
[2020-05-02 15:21] LABS: Cholesterol 118 mg/dL (140-199); HDL Cholesterol 32 mg/dL (40-60); LDL Cholesterol Calculated 62 mg/dL (<100); Triglycerides 118 mg/dL (35-150)
== END ==
PROVIDERS: Family Provider Student in an Organized Health Care Education/Training Program; PCP Student in an Organized Health Care Education/Training Program; Referring Provider Internal Medicine Cardiovascular Disease; Visit Provider Internal Medicine Cardiovascular Disease
DX: E78.5 Hyperlipidemia, unspecified (principal)
CPT/HCPCS: 36415; 80061

== ENCOUNTER → 2020-07-17 07:51 | Outpatient (CLI) | payer MEDICARE, OTHER, SELFPAY | PROVIDERS: Family Provider Student in an Organized Health Care Education/Training Program; PCP Student in an Organized Health Care Education/Training Program; Referring Provider Student in an Organized Health Care Education/Training Program; Visit Provider Internal Medicine | DX: N18.3 Chronic kidney disease, stage 3 (moderate) (principal); D63.1 Anemia in chronic kidney disease | CPT/HCPCS: 96372; 99213; J0881 ==

== ENCOUNTER → 2020-07-23 13:33 | Outpatient (CLI) | payer MEDICARE, OTHER, SELFPAY | PROVIDERS: Family Provider Student in an Organized Health Care Education/Training Program; PCP Student in an Organized Health Care Education/Training Program; Referring Provider Student in an Organized Health Care Education/Training Program; Visit Provider Internal Medicine | DX: I12.9 Hypertensive chronic kidney disease with stage 1 through stage 4 chronic kidney disease, or unspecified chronic kidney disease (principal); N18.3 Chronic kidney disease, stage 3 (moderate); D63.1 Anemia in chronic kidney disease ==

== ENCOUNTER → 2020-07-31 10:31 | Outpatient (CLI) | payer MEDICARE, OTHER, SELFPAY | PROVIDERS: Family Provider Student in an Organized Health Care Education/Training Program; PCP Student in an Organized Health Care Education/Training Program; Referring Provider Physician Assistant; Visit Provider Physician Assistant | DX: R10.32 Left lower quadrant pain (principal); R19.7 Diarrhea, unspecified | CPT/HCPCS: 87045; 87177; 87329; 87899 ==

== ENCOUNTER → 2020-08-12 16:15 | Outpatient (CLI) | payer MEDICARE, OTHER, SELFPAY ==
[2020-08-12 17:50] LABS: Alanine Aminotransferase 15 IU/L (<35); Albumin 3.8 g/dL (3.5-5.0); Albumin Globulin Ratio 1.5 (1.0-2.8); Alkaline Phosphatase 42 U/L (38-126); Aspartate Aminotransferase 25 IU/L (14-36); BUN Creatinine Ratio 24.9 (6-22); Bilirubin Total 0.6 mg/dL (0.2-1.3); Blood Urea Nitrogen 52 mg/dL (7-17); Calcium 9.9 mg/dL (8.4-10.2); Carbon Dioxide 33 mmol/L (22-32); Chloride 100 mmol/L (98-107); Estimated Glomerular Filt Rate 22.5 mL/min (>60); Globulin 2.5 g/dL (1.7-4.1); Glucose 88 mg/dL (80-110); HEMOLYSIS < 15 (0-50); Potassium 4.1 mmol/L (3.4-5.1); Sodium 139 mmol/L (137-145); Total Protein 6.3 g/dL (6.3-8.2)
== END ==
PROVIDERS: Family Provider Student in an Organized Health Care Education/Training Program; PCP Student in an Organized Health Care Education/Training Program; Referring Provider Physician Assistant; Visit Provider Physician Assistant
DX: K57.32 Diverticulitis of large intestine without perforation or abscess without bleeding (principal); N18.4 Chronic kidney disease, stage 4 (severe)
CPT/HCPCS: 36415; 80053

== ENCOUNTER → 2020-08-21 13:56 | Outpatient (CLI) | payer MEDICARE, OTHER, SELFPAY ==
--- NOTE | 2020-08-21 | DI.MRI.S_ITS ---
PROCEDURE: MR THORACIC SPINE WO CON INDICATIONS: SPONDYLOSIS W/O MYELOPATHY OR RADICULOPATHY TECHNIQUE: Noncontrast sagittal T1 spine echo and T2 fast spin echo, sagittal STIR, axial T1 and T2 fast spin echo through the thoracic spine. COMPARISON: [facility], MR, T-SPINE W&WO CONTRAST, 04/27/2016, 18:14. [facility], MR, L-SPINE WITHOUT CONTRAST, 03/25/2016, 9:07. [facility], MR, L-SPINE WITHOUT CONTRAST, 10/04/2017, 17:39. FINDINGS: Image quality: Excellent. Alignment and Curvature: There is normal bony alignment. Bone Marrow: Marrow is of normal overall signal. No acute vertebral body compression fractures. Spinal Cord: Small syrinx involving the lower thoracic spinal cord level of the T12-L1 vertebral bodies is stable in size and contour compared to prior exams. 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 Paraspinous Soft Tissues: No paravertebral masses. Miscellaneous: [id number] degenerative disc changes noted throughout the thoracic spine. Small central T6-T7, T7-T8 and T8-T9 disc protrusions. Moderate central T9-T10 disc protrusion. No central stenosis. No neural foraminal narrowing. No neural compression.. IMPRESSION: 1. [id number] multilevel degenerative disc disease. 2. No central stenosis. 3. No neural foraminal narrowing. 4. 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
== END ==
PROVIDERS: Family Provider Student in an Organized Health Care Education/Training Program; PCP Student in an Organized Health Care Education/Training Program; Referring Provider Physical Medicine & Rehabilitation; Visit Provider Physical Medicine & Rehabilitation
DX: M47.814 Spondylosis without myelopathy or radiculopathy, thoracic region (principal); M51.34 Other intervertebral disc degeneration, thoracic region; Q06.2 Diastematomyelia; G95.0 Syringomyelia and syringobulbia
CPT/HCPCS: 72146

== ENCOUNTER → 2020-08-29 15:41 | Outpatient (CLI) | payer MEDICARE, OTHER, SELFPAY ==
[2020-08-29 16:01] LABS: Add Manual Diff / Slide Review NO; Basophils Absolute Auto 0 /uL (0-100); Basophils Percent Auto 0.7 % (0-2); Eosinophils Absolute Auto 200 /uL (0-450); Eosinophils Percent Auto 2.8 % (2-4); Hematocrit 29.3 % (36-46); Lymphocytes Absolute Auto 1700 /uL (1100-4500); Lymphocytes Percent Auto 30.2 % (25-40); Mean Corpuscular HGB Conc 34.1 % (30-36); Mean Corpuscular Hemoglobin 29.7 PG (26-34); Monocytes Absolute Auto 700 /uL (0-900); Monocytes Percent Auto 12.2 % (3-14); Neutrophils Absolute Auto 3000 /uL (1500-7000); Neutrophils Percent Auto 54.1 % (50-75); Platelet Count 135 X10^3/uL (150-400); Red Blood Cell Count 3.37 X10^6/uL (4.0-5.2); White Blood Cell Count 5.6 X10^3/uL (4.5-11.0)
[2020-08-29 17:58] LABS: BUN Creatinine Ratio 27.3 (6-22); Blood Urea Nitrogen 47 mg/dL (7-17); Calcium 8.9 mg/dL (8.4-10.2); Carbon Dioxide 30 mmol/L (22-32); Chloride 96 mmol/L (98-107); Estimated Glomerular Filt Rate 28.2 mL/min (>60); Glucose 107 mg/dL (80-110); HEMOLYSIS < 15 (0-50); Potassium 3.5 mmol/L (3.4-5.1); Sodium 133 mmol/L (137-145)
== END ==
PROVIDERS: Internal Medicine; Family Provider Student in an Organized Health Care Education/Training Program; PCP Student in an Organized Health Care Education/Training Program; Referring Provider Internal Medicine Cardiovascular Disease; Visit Provider Internal Medicine Cardiovascular Disease
DX: I10 Essential (primary) hypertension (principal); N18.30 Chronic kidney disease, stage 3 unspecified
CPT/HCPCS: 36415; 80048; 85025

== ENCOUNTER → 2020-09-02 13:32 | Outpatient (CLI) | payer MEDICARE, OTHER, SELFPAY ==
[2020-09-02] MEDS: DARBEPOETIN 100 MCG/0.5 ML SYRINGE SUBCUT (15:08)
== END ==
PROVIDERS: Family Provider Student in an Organized Health Care Education/Training Program; Referring Provider Internal Medicine; Visit Provider Internal Medicine
DX: I12.9 Hypertensive chronic kidney disease with stage 1 through stage 4 chronic kidney disease, or unspecified chronic kidney disease (principal); N18.30 Chronic kidney disease, stage 3 unspecified; D63.1 Anemia in chronic kidney disease
CPT/HCPCS: 96372; 99213; J0881

== ENCOUNTER → 2020-09-10 13:56 | Outpatient (CLI) | payer MEDICARE, OTHER, SELFPAY ==
[2020-09-10 15:20] LABS: HEMOLYSIS < 15 (0-50); Iron 100 ug/dL (37-170)
[2020-09-10 15:21] LABS: BUN Creatinine Ratio 33.5 (6-22); Blood Urea Nitrogen 58 mg/dL (7-17); Calcium 9.7 mg/dL (8.4-10.2); Carbon Dioxide 29 mmol/L (22-32); Chloride 100 mmol/L (98-107); Glucose 83 mg/dL (80-110); HEMOLYSIS < 15 (0-50); Potassium 3.5 mmol/L (3.4-5.1); Sodium 136 mmol/L (137-145)
[2020-09-10 15:31] LABS: Percent Iron Saturation 36 % (15-50); Total Iron Binding Capacity 281 ug/dL (265-497); Transferrin 207 mg/dL (206-381)
[2020-09-10 15:55] LABS: Ferritin 119 ng/mL (11-264)
[2020-09-10 16:17] LABS: Creatinine Urine Random 157.9 mg/dL; Protein (Total) Urine Random 11 mg/dL (0-12); Protein Creatinine Ratio Urine 0.06 GRAM/24H
[2020-09-11 08:12] LABS: Parathyroid Hormone Int 43 pg/mL (15-65)
== END ==
PROVIDERS: Family Provider Student in an Organized Health Care Education/Training Program; PCP Student in an Organized Health Care Education/Training Program; Referring Provider Nurse Practitioner; Visit Provider Student in an Organized Health Care Education/Training Program
DX: I10 Essential (primary) hypertension (principal); D50.0 Iron deficiency anemia secondary to blood loss (chronic); N25.81 Secondary hyperparathyroidism of renal origin; R80.9 Proteinuria, unspecified
CPT/HCPCS: 36415; 80048; 82570; 82728; 83540; 83550; 83970; 84156

== ENCOUNTER → 2020-09-23 16:12 | Outpatient (CLI) | payer MEDICARE, OTHER, SELFPAY ==
[2020-09-23 17:59] LABS: HEMOLYSIS < 15 (0-50); Potassium 3.7 mmol/L (3.4-5.1)
[2020-09-23 18:00] LABS: BUN Creatinine Ratio 30.6 (6-22); Blood Urea Nitrogen 48 mg/dL (7-17); Calcium 8.9 mg/dL (8.4-10.2); Carbon Dioxide 28 mmol/L (22-32); Chloride 101 mmol/L (98-107); Estimated Glomerular Filt Rate 31.3 mL/min (>60); Glucose 81 mg/dL (80-110); Sodium 134 mmol/L (137-145)
== END ==
PROVIDERS: Family Provider Student in an Organized Health Care Education/Training Program; PCP Student in an Organized Health Care Education/Training Program; Referring Provider Nurse Practitioner; Visit Provider Nurse Practitioner
DX: I10 Essential (primary) hypertension (principal)
CPT/HCPCS: 36415; 80048

== ENCOUNTER → 2020-09-29 15:48 | Outpatient (CLI) | payer MEDICARE, OTHER, SELFPAY ==
[2020-09-29 16:02] LABS: Add Manual Diff / Slide Review NO; Basophils Absolute Auto 0 /uL (0-100); Basophils Percent Auto 0.8 % (0-2); Eosinophils Absolute Auto 100 /uL (0-450); Eosinophils Percent Auto 2.4 % (2-4); Hematocrit 31.2 % (36-46); Hemoglobin 10.5 g/dL (12.0-16.0); Lymphocytes Absolute Auto 1600 /uL (1100-4500); Lymphocytes Percent Auto 36.6 % (25-40); Mean Corpuscular HGB Conc 33.7 % (30-36); Mean Corpuscular Hemoglobin 31.2 PG (26-34); Mean Corpuscular Volume 92.6 fL (80-100); Monocytes Absolute Auto 400 /uL (0-900); Neutrophils Absolute Auto 2200 /uL (1500-7000); Neutrophils Percent Auto 50.2 % (50-75); Platelet Count 138 X10^3/uL (150-400); Red Blood Cell Count 3.38 X10^6/uL (4.0-5.2); Red Cell Distribution Width 15.6 % (11.6-14.8); White Blood Cell Count 4.4 X10^3/uL (4.5-11.0)
== END ==
PROVIDERS: Family Provider Student in an Organized Health Care Education/Training Program; PCP Student in an Organized Health Care Education/Training Program; Referring Provider Internal Medicine; Visit Provider Internal Medicine
DX: N18.30 Chronic kidney disease, stage 3 unspecified (principal)
CPT/HCPCS: 36415; 85025

== ENCOUNTER → 2020-09-30 10:00 | Outpatient (CLI) | payer MEDICARE, OTHER, SELFPAY ==
[2020-09-30 10:46] VITALS: BP 134/68; PULSE 61; RESP 16; TEMP 36.7; O2SAT 97
[2020-09-30] MEDS: DARBEPOETIN 100 MCG/0.5 ML SYRINGE SUBCUT (10:57)
== END ==
PROVIDERS: Family Provider Student in an Organized Health Care Education/Training Program; PCP Student in an Organized Health Care Education/Training Program; Referring Provider Student in an Organized Health Care Education/Training Program; Visit Provider Internal Medicine
DX: N18.30 Chronic kidney disease, stage 3 unspecified (principal); D63.1 Anemia in chronic kidney disease
CPT/HCPCS: 96372; J0881

== ENCOUNTER → 2020-10-14 13:53 | Outpatient (CLI) | payer MEDICARE, OTHER, SELFPAY ==
[2020-10-14 15:47] LABS: COVID19 -Nasal RAPID Negative (Negative)
== END ==
PROVIDERS: Family Provider Student in an Organized Health Care Education/Training Program; PCP Student in an Organized Health Care Education/Training Program; Visit Provider Family Medicine
DX: Z11.59 Encounter for screening for other viral diseases (principal); R05 Cough
CPT/HCPCS: 87635

== ENCOUNTER → 2020-10-20 14:07 | Outpatient (CLI) | payer MEDICARE, OTHER, SELFPAY ==
--- NOTE | 2020-10-20 | DI.CT.S_ITS ---
PROCEDURE: CT CHEST WO CON INDICATIONS: solitary pulmonary nodule TECHNIQUE: Noncontrast 5 mm thick sections acquired from the pulmonary apices to the posterior costophrenic angles. 1 mm lung window, 5 mm thick coronal and sagittal and 7 mm axial MIP reformats were then acquired. For radiation dose reduction, the following was used: automated exposure control, adjustment of mA and/or kV according to patient size. COMPARISON: [facility], RG, CT THORAX W/O CONTRAST, 03/21/2019, 9:50. [facility], MR, MR THORACIC SPINE WO CON, 08/21/2020, 14:04. [facility], CT, CT ABDOMEN PELVIS WITHOUT CONTRAST, 07/31/2020, 12:36. FINDINGS: Image quality: Excellent. Lungs and pleura: 5 mm nodule seen adjacent to the right fissure on image 146/3. This appears unchanged. Sub solid ground-glass nodular focus in the right lung base on image 250/3 measures approximately 8 mm. This finding appears new. Additional sub 5 mm smaller pulmonary nodules appear grossly unchanged. There are scattered calcified granulomas. No acute consolidation. No pleural effusions or pneumothorax. Central and peripheral airways are patent and normal in caliber. Mediastinum: Heart size is normal. Coronary artery calcifications are present. This is moderate in degree No pericardial effusion. No mediastinal adenopathy by size criteria. Thoracic aorta and central pulmonary arteries are normal in size. Esophagus is normal in caliber. No hiatal hernia. Bones and chest wall: No suspicious bony lesions. No vertebral body compression fractures. No axillary or supraclavicular adenopathy by size criteria. Thyroid heterogeneous and there is low-attenuation nodularity seen bilaterally. This would be better assessed with ultrasound. Abdomen: Visualized upper abdominal solid organs and bowel loops appear normal in the absence of contrast. IMPRESSION: Unchanged 5 mm right perifissural pulmonary nodule. This finding technically still indeterminate and recommend continued follow-up in March 2021. 8 mm sub solid ground-glass nodule involving the right lung base which appears new. Recommend continued surveillance (which could be performed at the time of above recommended chest CT) Dictated by: Branden Pressley M.D. on 10/20/2020 at 16:27 Approved by: Branden Pressley M.D. on 10/20/2020 at 16:39
== END ==
PROVIDERS: Family Provider Student in an Organized Health Care Education/Training Program; PCP Student in an Organized Health Care Education/Training Program; Referring Provider Physician Assistant; Visit Provider Physician Assistant
DX: R91.8 Other nonspecific abnormal finding of lung field (principal)
CPT/HCPCS: 71250

== ENCOUNTER → 2020-10-28 13:29 | Outpatient (CLI) | payer MEDICARE, OTHER, SELFPAY | PROVIDERS: Family Provider Student in an Organized Health Care Education/Training Program; PCP Student in an Organized Health Care Education/Training Program; Referring Provider Internal Medicine; Visit Provider Internal Medicine | DX: I12.9 Hypertensive chronic kidney disease with stage 1 through stage 4 chronic kidney disease, or unspecified chronic kidney disease (principal); N18.30 Chronic kidney disease, stage 3 unspecified; D63.1 Anemia in chronic kidney disease ==

== ENCOUNTER → 2020-11-19 13:12 | Outpatient (CLI) | payer MEDICARE, OTHER, SELFPAY ==
[2020-11-19 14:51] LABS: COVID19 -Nasal RAPID Negative (Negative)
== END ==
PROVIDERS: Family Provider Student in an Organized Health Care Education/Training Program; PCP Student in an Organized Health Care Education/Training Program; Visit Provider Physician Assistant
DX: Z01.812 Encounter for preprocedural laboratory examination (principal); Z20.822 Contact with and (suspected) exposure to COVID-19
CPT/HCPCS: 87635; C9803

== ENCOUNTER → 2020-11-26 14:33 | Outpatient (CLI) | payer MEDICARE, OTHER, SELFPAY ==
[2020-11-26 14:58] LABS: Hematocrit 31.8 % (36-46); Hemoglobin 10.7 g/dL (12.0-16.0)
[2020-11-26 15:59] LABS: BUN Creatinine Ratio 22.4 (6-22); Blood Urea Nitrogen 34 mg/dL (7-17); Calcium 9.1 mg/dL (8.4-10.2); Carbon Dioxide 29 mmol/L (22-32); Chloride 107 mmol/L (98-107); Estimated Glomerular Filt Rate 32.5 mL/min (>60); Glucose 89 mg/dL (80-110); HEMOLYSIS < 15 (0-50); Potassium 3.2 mmol/L (3.4-5.1); Sodium 139 mmol/L (137-145)
== END ==
PROVIDERS: Family Provider Student in an Organized Health Care Education/Training Program; PCP Student in an Organized Health Care Education/Training Program; Referring Provider Student in an Organized Health Care Education/Training Program; Visit Provider Student in an Organized Health Care Education/Training Program
DX: N05.9 Unspecified nephritic syndrome with unspecified morphologic changes (principal); D64.9 Anemia, unspecified
CPT/HCPCS: 36415; 80048; 85014; 85018

== ENCOUNTER → 2020-12-02 12:40 | Outpatient (CLI) | payer MEDICARE, OTHER, SELFPAY ==
[2020-12-02 15:10] LABS: BUN Creatinine Ratio 25.2 (6-22); Blood Urea Nitrogen 40 mg/dL (7-17); Calcium 9.2 mg/dL (8.4-10.2); Carbon Dioxide 29 mmol/L (22-32); Chloride 97 mmol/L (98-107); Estimated Glomerular Filt Rate 30.9 mL/min (>60); Glucose 106 mg/dL (80-110); HEMOLYSIS < 15 (0-50); Potassium 3.8 mmol/L (3.4-5.1); Sodium 131 mmol/L (137-145)
== END ==
PROVIDERS: Family Provider Student in an Organized Health Care Education/Training Program; PCP Student in an Organized Health Care Education/Training Program; Referring Provider Internal Medicine Cardiovascular Disease; Visit Provider Internal Medicine Cardiovascular Disease
DX: I10 Essential (primary) hypertension (principal)
CPT/HCPCS: 36415; 80048

== ENCOUNTER → 2020-12-02 13:27 | Outpatient (CLI) | payer MEDICARE, OTHER, SELFPAY ==
[2020-12-02 13:50] VITALS: BP 140/79; PULSE 61; RESP 18; TEMP 36.9; O2SAT 100
[2020-12-02] MEDS: DARBEPOETIN 100 MCG/0.5 ML SYRINGE SUBCUT (14:02)
== END ==
PROVIDERS: Family Provider Student in an Organized Health Care Education/Training Program; PCP Student in an Organized Health Care Education/Training Program; Referring Provider Student in an Organized Health Care Education/Training Program; Visit Provider Internal Medicine
DX: I12.9 Hypertensive chronic kidney disease with stage 1 through stage 4 chronic kidney disease, or unspecified chronic kidney disease (principal); N18.30 Chronic kidney disease, stage 3 unspecified; D63.1 Anemia in chronic kidney disease
CPT/HCPCS: 85025; 96372; J0881; M1145

== ENCOUNTER → 2020-12-17 12:52 | Outpatient (CLI) | payer MEDICARE, OTHER, SELFPAY ==
[2020-12-17 14:43] LABS: Blood Urea Nitrogen 51 mg/dL (7-17); Calcium 9.6 mg/dL (8.4-10.2); Carbon Dioxide 27 mmol/L (22-32); Chloride 106 mmol/L (98-107); Estimated Glomerular Filt Rate 28.6 mL/min (>60); Glucose 75 mg/dL (80-110); HEMOLYSIS < 15 (0-50); Potassium 4.2 mmol/L (3.4-5.1); Sodium 140 mmol/L (137-145)
== END ==
PROVIDERS: Family Provider Student in an Organized Health Care Education/Training Program; PCP Student in an Organized Health Care Education/Training Program; Referring Provider Internal Medicine Cardiovascular Disease; Visit Provider Internal Medicine Cardiovascular Disease
DX: I10 Essential (primary) hypertension (principal); N05.9 Unspecified nephritic syndrome with unspecified morphologic changes
CPT/HCPCS: 36415; 80048

== ENCOUNTER → 2021-01-28 13:28 | Outpatient (CLI) | payer MEDICARE, OTHER, SELFPAY ==
[2021-01-28] MEDS: COVID-19 VACC #1, MRNA(MOD) 100 MCG/0.5 ML VIAL IM (13:35)
== END ==
PROVIDERS: Family Provider Student in an Organized Health Care Education/Training Program; PCP Student in an Organized Health Care Education/Training Program; Visit Provider Internal Medicine
DX: Z23 Encounter for immunization (principal)
CPT/HCPCS: 0011A; 91301

== ENCOUNTER → 2021-01-28 15:06 | Outpatient (CLI) | payer MEDICARE, OTHER, SELFPAY ==
[2021-01-28 15:21] VITALS: BP 134/68; PULSE 69; RESP 18; TEMP 36.8; O2SAT 99
[2021-01-28] MEDS: DARBEPOETIN 100 MCG/0.5 ML SYRINGE SUBCUT (15:39)
== END ==
PROVIDERS: Family Provider Student in an Organized Health Care Education/Training Program; PCP Student in an Organized Health Care Education/Training Program; Referring Provider Student in an Organized Health Care Education/Training Program; Visit Provider Internal Medicine
DX: I12.9 Hypertensive chronic kidney disease with stage 1 through stage 4 chronic kidney disease, or unspecified chronic kidney disease (principal); N18.30 Chronic kidney disease, stage 3 unspecified; D63.1 Anemia in chronic kidney disease; E78.5 Hyperlipidemia, unspecified; Z23 Encounter for immunization
CPT/HCPCS: 0011A; 36415; 80048; 82570; 82728; 83540; 83550; 83970; 84156; 85025; 91301; 96372; J0881

== ENCOUNTER → 2021-02-25 14:06 | Outpatient (CLI) | payer MEDICARE, OTHER, SELFPAY ==
[2021-02-25] MEDS: COVID-19 VACC #2, MRNA(MOD) 100 MCG/0.5 ML VIAL IM (14:17)
== END ==
PROVIDERS: Family Provider Student in an Organized Health Care Education/Training Program; PCP Student in an Organized Health Care Education/Training Program; Visit Provider Internal Medicine
DX: Z23 Encounter for immunization (principal)
CPT/HCPCS: 0012A; 91301

== ENCOUNTER → 2021-03-03 14:32 | Outpatient (CLI) | payer MEDICARE, OTHER, SELFPAY | PROVIDERS: Family Provider Student in an Organized Health Care Education/Training Program; PCP Student in an Organized Health Care Education/Training Program; Referring Provider Internal Medicine; Visit Provider Internal Medicine | DX: I12.9 Hypertensive chronic kidney disease with stage 1 through stage 4 chronic kidney disease, or unspecified chronic kidney disease (principal); N18.30 Chronic kidney disease, stage 3 unspecified; D63.1 Anemia in chronic kidney disease ==

== ENCOUNTER → 2021-03-11 16:28 | Outpatient (CLI) | payer MEDICARE, OTHER, SELFPAY ==
[2021-03-11 17:41] LABS: Hematocrit 32.1 % (36-46)
[2021-03-11 17:56] LABS: BUN Creatinine Ratio 29.8 (6-22); Blood Urea Nitrogen 48 mg/dL (7-17); Calcium 9.2 mg/dL (8.4-10.2); Carbon Dioxide 23 mmol/L (22-32); Chloride 109 mmol/L (98-107); Estimated Glomerular Filt Rate 30.3 mL/min (>60); Glucose 91 mg/dL (80-110); HEMOLYSIS < 15 (0-50); Potassium 4.1 mmol/L (3.4-5.1); Sodium 142 mmol/L (137-145)
== END ==
PROVIDERS: Family Provider Student in an Organized Health Care Education/Training Program; PCP Student in an Organized Health Care Education/Training Program; Referring Provider Student in an Organized Health Care Education/Training Program; Visit Provider Student in an Organized Health Care Education/Training Program
DX: N05.9 Unspecified nephritic syndrome with unspecified morphologic changes (principal); D64.9 Anemia, unspecified
CPT/HCPCS: 36415; 80048; 85014; 85018

== ENCOUNTER → 2021-04-18 11:11 | Outpatient (CLI) | payer MEDICARE, OTHER, SELFPAY ==
--- NOTE | 2021-04-18 11:13 | DI.MRI.S_ITS ---
PROCEDURE: MR LUMBAR SPINE WO CON INDICATIONS: Radiculopathy cervical,lumbar region TECHNIQUE: Noncontrast sagittal T1 spin echo and T2 fast echo, sagittal STIR, axial T1 and T2 fast spin echo through the lumbar spine. In cases with scoliosis, additional coronal T2 fast spin echo may be performed. COMPARISON: None. FINDINGS: Image quality: Excellent. Alignment and Curvature: Trace degenerative retrolisthesis of L3 on L4 and of L2 on L3. Bone Marrow: Marrow is of normal overall signal. No acute vertebral body compression fractures. Spinal Cord: Conus medullaris terminates at the L2 level. A syrinx at T12-L1 is unchanged, measuring approximately 1.4 x 0.4 x 0.5 cm. Paraspinous Soft Tissues: No paravertebral masses. T11-T12: No canal stenosis or foraminal stenosis. T12-L1: Bilateral facet and ligament hypertrophy. No canal stenosis or foraminal stenosis. Lower cord syrinx, unchanged. L1-L2: Mild disc height loss. Diffuse disc bulge. Facet and ligament hypertrophy. Mild canal stenosis. Mild bilateral foraminal stenosis. No significant change. L2-L3: Severe chronic disc height loss. Posterior disc plus osteophyte. Facet and ligament hypertrophy. No significant canal stenosis. Moderate bilateral foraminal stenosis. No significant change. L3-L4: Severe disc height loss. Diffuse posterior disc post osteophyte. No significant canal stenosis. [id number] right foraminal narrowing. Moderate to severe left foraminal narrowing with flattening deformity on the exiting left L3 nerve root. Findings are unchanged. L4-L5: Diffuse posterior disc bulge. Prominent bilateral facet hypertrophy. No significant central canal stenosis. Moderate right foraminal narrowing with flattening deformity on the exiting right L4 nerve root. A left foraminal disc protrusion contributes to severe left foraminal narrowing and significant impingement on the left L4 nerve root in the foramen. This is not significantly changed. L5-S1: Posterior disc bulge. Bilateral facet hypertrophy. No central canal stenosis. Moderate right foraminal narrowing with flattening deformity on the exiting right L5 nerve root. IMPRESSION: 1. 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 2. Diffuse degenerative change. 3. Multilevel foraminal narrowing as described above. 4. At L4-L5, a left foraminal disc protrusion contributes to severe left foraminal narrowing and impingement on the left L4 nerve root. This has not significantly changed. 5. Multilevel facet arthropathy. Dictated by: Rojelio Taylor M.D. on 04/20/2021 at 9:30 Approved by: Rojelio Taylor M.D. on 04/20/2021 at 9:46
--- NOTE | 2021-04-18 11:14 | DI.MRI.S_ITS ---
PROCEDURE: MR CERVICAL SPINE WO CON INDICATIONS: Radiculopathy cervical,lumbar region TECHNIQUE: Noncontrast sagittal T1 spin echo and T2 fast spin echo, sagittal STIR, foraminal oblique sagittal T2 fast spin echo, and axial gradient echo or T2 fast spin echo through the cervical spine. COMPARISON: None. FINDINGS: Image quality: Excellent. Alignment and Curvature: There is normal bony alignment. Bone Marrow: Marrow demonstrates normal overall signal. Spinal Cord: Visualized spinal cord has normal size and signal. No cerebellar tonsillar herniation. Paraspinous Soft Tissues: No paravertebral masses. Prevertebral soft tissues are normal in thickness. C2-C3: No canal stenosis or foraminal stenosis. C3-C4: Mild disc bulge. Posterior ligamentous hypertrophy. Mild canal stenosis. AP diameter of the canal is 9 mm. Prominent left facet hypertrophy. Mild bilateral foraminal narrowing. C4-C5: Mild disc bulge. Mild canal stenosis. Bilateral facet hypertrophy. Mild to moderate right foraminal narrowing and moderate to severe left foraminal narrowing. Flattening deformity on the exiting bilateral C5 nerve roots. C5-C6: Diffuse disc bulge and osteophyte. Indentation on the ventral cord. Axial images underestimate canal stenosis, which is moderate. Bilateral facet hypertrophy. Moderate right and moderate to severe left foraminal narrowing with flattening deformity on the exiting bilateral C6 nerve roots. C6-C7: Diffuse posterior disc post osteophyte indenting on the cord with superimposed left posterior disc protrusion. Moderate central canal stenosis with moderate to severe left lateral recess stenosis and impingement on the ventral horn of the left C7 nerve root in the lateral recess. There is moderate right foraminal narrowing with flattening deformity on the exiting right C7 nerve root. There is severe left foraminal narrowing with left C7 foraminal nerve root impingement. C7-T1: Disc bulge. No canal stenosis or foraminal stenosis. IMPRESSION: 1. Diffuse spondylitic change. 2. Canal stenosis is mild at C4-C5 and moderate at C5-C6. 3. At C6-C7, there is moderate central canal stenosis and moderate to severe left lateral recess stenosis. 4. Multilevel foraminal narrowing as described above. Dictated by: Rojelio Taylor M.D. on 04/20/2021 at 9:14 Approved by: Rojelio Taylor M.D. on 04/20/2021 at 9:30
== END ==
PROVIDERS: Family Provider Student in an Organized Health Care Education/Training Program; PCP Student in an Organized Health Care Education/Training Program; Referring Provider Physical Medicine & Rehabilitation; Visit Provider Physical Medicine & Rehabilitation
DX: M54.17 Radiculopathy, lumbosacral region (principal); M54.12 Radiculopathy, cervical region; M54.5 Low back pain
CPT/HCPCS: 72141; 72148

== ENCOUNTER → 2021-04-24 14:04 | Outpatient (CLI) | payer MEDICARE, OTHER, SELFPAY ==
--- NOTE | 2021-04-24 14:06 | DI.CT.S_ITS ---
PROCEDURE: CT CHEST WO CON INDICATIONS: Solitary pulmonary nodule TECHNIQUE: Noncontrast 5 mm thick sections acquired from the pulmonary apices to the posterior costophrenic angles. 1 mm lung window, 5 mm thick coronal and sagittal and 7 mm axial MIP reformats were then acquired. For radiation dose reduction, the following was used: automated exposure control, adjustment of mA and/or kV according to patient size. COMPARISON: [facility], CT, CT CHEST WO CON, 10/20/2020, 14:09. FINDINGS: Image quality: Previously seen subpleural nodule within the right lower lobe anteriorly adjacent to the major fissure is not significantly changed, measuring 4 mm diameter. Mild biapical and upper lobe scarring is present, as before. 2 mm subpleural nodule within the right upper lobe posterolaterally (series 3, image 132) is unchanged. 2 mm subpleural nodule within the right lower lobe posterolaterally (series 3, image 208) is unchanged. Previously seen ground-glass nodule within the right lower lobe posteriorly is no longer present. Calcified granuloma within the left lower lobe laterally is unchanged. 5 mm subpleural nodule within the left lower lobe posteriorly (series 3, image 213) is unchanged. There are no new pulmonary nodules present. Calcified granuloma within the right upper lobe anteroinferiorly adjacent to the minor fissure is unchanged. Lungs and pleura: No acute air space opacities. No pleural effusions or pneumothorax. Central and peripheral airways are patent and normal in caliber. Mediastinum: Heart size is normal. Moderate atherosclerotic calcification of the coronary vasculature. No pericardial effusion. No mediastinal adenopathy by size criteria. Thoracic aorta and central pulmonary arteries are normal in size. Esophagus is normal in caliber. No hiatal hernia. Bones and chest wall: No suspicious bony lesions. No vertebral body compression fractures. No axillary or supraclavicular adenopathy by size criteria. Thyroid gland is grossly unremarkable . Abdomen: Visualized upper abdominal solid organs and bowel loops appear normal in the absence of contrast. IMPRESSION: 1. Resolution of previously seen ground-glass nodule within the right lower lobe. 2. No change in remaining bilateral pulmonary nodules. 3. Coronary artery disease. Dictated by: Luisito Byers M.D. on 04/24/2021 at 14:46 Approved by: Luisito Byers M.D. on 04/24/2021 at 14:50
== END ==
PROVIDERS: Family Provider Student in an Organized Health Care Education/Training Program; PCP Student in an Organized Health Care Education/Training Program; Referring Provider Physician Assistant; Visit Provider Physician Assistant
DX: R91.8 Other nonspecific abnormal finding of lung field (principal); I25.10 Atherosclerotic heart disease of native coronary artery without angina pectoris
CPT/HCPCS: 71250

== ENCOUNTER → 2021-04-28 14:31 | Outpatient (CLI) | payer MEDICARE, OTHER, SELFPAY ==
[2021-04-28 15:03] VITALS: BP 125/73; PULSE 70; RESP 18; TEMP 36.8; O2SAT 96
[2021-04-28] MEDS: DARBEPOETIN 100 MCG/0.5 ML SYRINGE SUBCUT (15:21)
--- NOTE | 2021-04-28 17:44 | PHA.NOTE ---
Aranesp Injection: Patient is here for Aranesp 100mg SubQ injection every 2 months. Today Hgb/Hct = 10.9/32.0 BP = 127/73 Plan to give Aranesp dose as written today.
== END ==
PROVIDERS: PCP Student in an Organized Health Care Education/Training Program; Referring Provider Internal Medicine; Visit Provider Internal Medicine
DX: I12.9 Hypertensive chronic kidney disease with stage 1 through stage 4 chronic kidney disease, or unspecified chronic kidney disease (principal); N18.30 Chronic kidney disease, stage 3 unspecified; D63.1 Anemia in chronic kidney disease
CPT/HCPCS: 36415; 85025; 96372; J0881

== ENCOUNTER → 2021-06-17 13:53 | Outpatient (CLI) | payer MEDICARE, OTHER, SELFPAY ==
[2021-06-17 14:09] VITALS: BP 145/82; PULSE 72; RESP 16; TEMP 36.9; O2SAT 98
[2021-06-17] MEDS: EPOETIN ALFA-EPBX 10,000 UNIT/ML VIAL 20000 UNIT SUBCUT (14:14)
--- NOTE | 2021-06-17 14:36 | ONC.SCHED ---
Waiting for note from Giovanna to Dr. Vazquez to clarify injections before we schedule.
--- NOTE | 2021-06-17 17:24 | ONC.PHA ---
EPO Injection: Patient is here for EPO 20,000 units SubQ injection every week. Patient was previously receiving Aranesp 100mcg every 1-2 months. Due formulary changed, patient is being transition to EPO. Labs (06/16/2021): Hgb/Hct = 10.6/31.7 Today BP = 145/82 Plan to give EPO dose as ordered for this week. Vital Signs Temperature 98.4 F Pulse Rate 72 Respiratory Rate 16 Blood Pressure 145/82 Pulse Oximetry 98 Allergies Allergy/AdvReac Type Severity Reaction Status Date / Time belladonna alkaloids Allergy Severe severe Verified 01/21/21 14:58 [From BELLERGAL-S] swelling and itching ergotamine [From BELLERGAL-S] Allergy Severe severe Verified 01/21/21 14:58 swelling and itching phenobarbital Allergy Severe severe Verified 01/21/21 14:58 [From BELLERGAL-S] swelling and itching shellfish derived AdvReac Severe ill, n/v Verified 01/21/21 14:58 [SHELLFISH DERIVED]
== END ==
PROVIDERS: PCP Student in an Organized Health Care Education/Training Program; Referring Provider Internal Medicine Medical Oncology; Visit Provider Internal Medicine Medical Oncology
DX: I12.9 Hypertensive chronic kidney disease with stage 1 through stage 4 chronic kidney disease, or unspecified chronic kidney disease (principal); N18.30 Chronic kidney disease, stage 3 unspecified; D63.1 Anemia in chronic kidney disease
CPT/HCPCS: 96372; Q5106

== ENCOUNTER → 2021-08-31 14:08 | Outpatient (CLI) | payer MEDICARE, OTHER, SELFPAY ==
[2021-08-31 15:51] LABS: Blood Urea Nitrogen 41 mg/dL (7-17); Calcium 9.5 mg/dL (8.4-10.2); Carbon Dioxide 27 mmol/L (22-32); Chloride 106 mmol/L (98-107); Estimated Glomerular Filt Rate 28.3 mL/min (>60); Glucose 87 mg/dL (80-110); HEMOLYSIS < 15 (0-50); Potassium 4.3 mmol/L (3.4-5.1); Sodium 141 mmol/L (137-145)
[2021-08-31 15:52] LABS: Creatinine Urine Random 83.8 mg/dL; Protein (Total) Urine Random 12 mg/dL (0-12); Protein Creatinine Ratio Urine 0.14 GRAM/24H
== END ==
PROVIDERS: PCP Student in an Organized Health Care Education/Training Program; Referring Provider Student in an Organized Health Care Education/Training Program; Visit Provider Student in an Organized Health Care Education/Training Program
DX: R80.9 Proteinuria, unspecified (principal); N05.9 Unspecified nephritic syndrome with unspecified morphologic changes
CPT/HCPCS: 36415; 80048; 82570; 84156

== ENCOUNTER → 2021-09-21 09:42 | Outpatient (CLI) | payer MEDICARE, OTHER, SELFPAY ==
[2021-09-21 12:58] LABS: HEMOLYSIS < 15 (0-50); NT-proBNP (BNP-Adult 18+) 1190 pg/mL (<450)
[2021-09-21 13:42] LABS: BUN Creatinine Ratio 21.2 (6-22); Blood Urea Nitrogen 48 mg/dL (7-17); Calcium 9.2 mg/dL (8.4-10.2); Carbon Dioxide 26 mmol/L (22-32); Chloride 103 mmol/L (98-107); Estimated Glomerular Filt Rate 20.5 mL/min (>60); Glucose 115 mg/dL (80-110); Potassium 3.9 mmol/L (3.4-5.1); Sodium 140 mmol/L (137-145)
== END ==
PROVIDERS: PCP Student in an Organized Health Care Education/Training Program; Referring Provider Student in an Organized Health Care Education/Training Program; Visit Provider Student in an Organized Health Care Education/Training Program
DX: N05.9 Unspecified nephritic syndrome with unspecified morphologic changes (principal); I50.32 Chronic diastolic (congestive) heart failure
CPT/HCPCS: 36415; 80048; 83880

== ENCOUNTER → 2021-09-25 13:04 | Outpatient (CLI) | payer MEDICARE, OTHER, SELFPAY ==
--- NOTE | 2021-09-25 13:07 | DI.RAD.S_ITS ---
PROCEDURE: XR HIP W PEL IF DONE RT 2V INDICATIONS: Hip pain TECHNIQUE: AP pelvis with lateral view(s) of the right hip(s). COMPARISON: [facility], , HIPBILAT 3TO4V W PEL IF PERFD, 08/06/2016, 16:08. FINDINGS: Bones: No fractures or dislocations. Pelvic ring appears intact. No suspicious bony lesions. Lower lumbar spondylosis and facet disease. Mild bilateral hip joint degeneration. Degenerative sclerosis at the pubis symphysis. Soft tissues: The visualized bowel gas pattern is normal. No suspicious soft tissue calcifications. IMPRESSION: Mild bilateral hip joint degeneration, grossly unchanged since 08/06/16 Dictated by: Branden Pressley M.D. on 09/25/2021 at 13:31 Approved by: Branden Pressley M.D. on 09/25/2021 at 13:32
== END ==
PROVIDERS: PCP Student in an Organized Health Care Education/Training Program; Referring Provider Student in an Organized Health Care Education/Training Program; Visit Provider Student in an Organized Health Care Education/Training Program
DX: S79.912A Unspecified injury of left hip, initial encounter (principal); M16.0 Bilateral primary osteoarthritis of hip; X58.XXXA Exposure to other specified factors, initial encounter
CPT/HCPCS: 73502

== ENCOUNTER → 2021-10-30 11:54 | Outpatient (CLI) | payer MEDICARE, OTHER, SELFPAY ==
[2021-10-30 12:33] LABS: Hematocrit 31.6 % (36-46); Hemoglobin 10.8 g/dL (12.0-16.0)
[2021-10-30 13:41] LABS: Blood Urea Nitrogen 45 mg/dL (7-17); Calcium 9.3 mg/dL (8.4-10.2); Carbon Dioxide 27 mmol/L (22-32); Chloride 107 mmol/L (98-107); Estimated Glomerular Filt Rate 27.9 mL/min (>60); Glucose 82 mg/dL (80-110); HEMOLYSIS < 15 (0-50); Potassium 3.5 mmol/L (3.4-5.1); Sodium 144 mmol/L (137-145)
[2021-10-30 16:45] LABS: Creatinine Urine Random 90.9 mg/dL; Protein (Total) Urine Random 17 mg/dL (0-12); Protein Creatinine Ratio Urine 0.18 GRAM/24H
[2021-10-31 08:47] LABS: Parathyroid Hormone Int 162 pg/mL (15-65)
== END ==
PROVIDERS: PCP Student in an Organized Health Care Education/Training Program; Referring Provider Student in an Organized Health Care Education/Training Program; Visit Provider Student in an Organized Health Care Education/Training Program
DX: N05.9 Unspecified nephritic syndrome with unspecified morphologic changes (principal); R80.9 Proteinuria, unspecified; D64.9 Anemia, unspecified; N25.81 Secondary hyperparathyroidism of renal origin
CPT/HCPCS: 36415; 80048; 82570; 83970; 84156; 85014; 85018

== ENCOUNTER → 2021-12-25 12:06 | Outpatient (CLI) | payer MEDICARE, OTHER, SELFPAY ==
--- NOTE | 2021-12-25 | DI.MG.S_ITS ---
BILATERAL DIGITAL SCREENING MAMMOGRAM 3D/2D WITH CAD: 12/25/2021 CLINICAL: Routine screening. Comparison is made to exams dated: 01/17/2020 breast MRI, 01/09/2020 mammogram, 12/15/2018 mammogram, and 12/08/2017 mammogram - [facility]. There are scattered fibroglandular elements in both breasts. Current study was also evaluated with a Computer Aided Detection (CAD) system. No significant masses, calcifications, or other findings are seen in either breast. There has been no significant interval change. IMPRESSION: NEGATIVE There is no mammographic evidence of malignancy. A 1 year screening mammogram is recommended. This exam was interpreted at Station ID: [id number]. NOTE: For mammograms, a report in lay terms will be sent to the patient. Approximately 15% of breast malignancies will not be visualized mammographically. In the management of a palpable breast mass, a negative mammogram must not discourage biopsy of a clinically suspicious lesion. Electronically Signed By: Aysha tomas/erlinda:12/25/2021 14:58:18 letter sent: Normal Exam ACR BI-RADS Category 1: Negative [id number]
== END ==
PROVIDERS: PCP Student in an Organized Health Care Education/Training Program; Referring Provider Student in an Organized Health Care Education/Training Program; Visit Provider Student in an Organized Health Care Education/Training Program
DX: Z12.31 Encounter for screening mammogram for malignant neoplasm of breast (principal)
CPT/HCPCS: 77063; 77067

== ENCOUNTER → 2022-02-27 12:56 | Outpatient (CLI) | payer MEDICARE, OTHER, SELFPAY ==
[2022-02-27 13:21] LABS: Hematocrit 34.9 % (36-46); Hemoglobin 11.9 g/dL (12.0-16.0)
[2022-02-27 13:31] LABS: Blood Urea Nitrogen 49 mg/dL (7-17); Calcium 9.3 mg/dL (8.4-10.2); Carbon Dioxide 26 mmol/L (22-32); Chloride 107 mmol/L (98-107); Estimated Glomerular Filt Rate 22 mL/min (>60); Glucose 101 mg/dL (80-110); HEMOLYSIS < 15 (0-50); Sodium 141 mmol/L (137-145)
[2022-02-27 13:48] LABS: Creatinine Urine Random 107.4 mg/dL; Protein (Total) Urine Random 52 mg/dL (0-12); Protein Creatinine Ratio Urine 0.48 GRAM/24H
[2022-02-28 12:12] LABS: Parathyroid Hormone Int 202 pg/mL (15-65)
== END ==
PROVIDERS: PCP Student in an Organized Health Care Education/Training Program; Referring Provider Student in an Organized Health Care Education/Training Program; Visit Provider Student in an Organized Health Care Education/Training Program
DX: N05.9 Unspecified nephritic syndrome with unspecified morphologic changes (principal); R80.9 Proteinuria, unspecified; D64.9 Anemia, unspecified; N25.81 Secondary hyperparathyroidism of renal origin
CPT/HCPCS: 36415; 80048; 82570; 83970; 84156; 85014; 85018

== ENCOUNTER 2022-03-05 17:00 | Emergency (ER) | payer MEDICARE, OTHER, SELFPAY ==
[2022-03-05 17:53] VITALS: BP 165/71; PULSE 69; RESP 16; TEMP 36.9; O2SAT 96; BMI 24.4
== END 2022-03-05 19:45 | disposition left against medical advice (07) ==
PROVIDERS: Emergency Provider Emergency Medicine; PCP Student in an Organized Health Care Education/Training Program
DX: S09.90XA Unspecified injury of head, initial encounter (principal)
CPT/HCPCS: 99281

== ENCOUNTER → 2022-03-09 14:08 | Outpatient (CLI) | payer MEDICARE, OTHER, SELFPAY ==
[2022-03-10 08:54] LABS: Fecal Immunochemical Test Negative (Negative)
== END ==
PROVIDERS: PCP Student in an Organized Health Care Education/Training Program; Referring Provider Student in an Organized Health Care Education/Training Program; Visit Provider Student in an Organized Health Care Education/Training Program
DX: Z12.11 Encounter for screening for malignant neoplasm of colon (principal); Z12.12 Encounter for screening for malignant neoplasm of rectum
CPT/HCPCS: 82274

== ENCOUNTER → 2022-07-02 12:21 | Outpatient (CLI) | payer MEDICARE, OTHER, SELFPAY ==
--- NOTE | 2022-07-02 | DI.MRI.S_ITS ---
PROCEDURE: MR THORACIC SPINE WO CON INDICATIONS: Spondylosis without myelopathy or radiculopathy, thoracic re TECHNIQUE: Noncontrast sagittal T1 spine echo and T2 fast spin echo, sagittal STIR, and T2 fast spin echo through the thoracic spine. COMPARISON: [facility], MR, MR LUMBAR SPINE WO CON, 04/18/2021, 11:55. [facility], MR, MR THORACIC SPINE WO CON, 08/21/2020, 14:04. FINDINGS: Image quality: Excellent. Alignment and Curvature: There is normal bony alignment. Bone Marrow: Degenerative Modic type 1 degenerative endplate changes noted at T12-L1 Spinal Cord: There is a vertical cleft in the distal conus resulting in 2 susan cords without a osseous or fibrous septum. Just proximal to the cleft, there is a stable hydrosyrinx which also has remained unchanged. Paraspinous Soft Tissues: No paravertebral masses. Miscellaneous: Mild degenerative disc disease associated with small disc bulges at T8-9 and T9-10. No central or foraminal stenosis present. 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 No associated osseous or fibrous septum. 2. Mild degenerative changes without central or foraminal stenosis Approved by: Jonnathan Neff M.D. on 07/02/2022 at 15:08
== END ==
PROVIDERS: PCP Nurse Practitioner; Referring Provider Physical Medicine & Rehabilitation; Visit Provider Physical Medicine & Rehabilitation
DX: M47.814 Spondylosis without myelopathy or radiculopathy, thoracic region (principal); Q06.2 Diastematomyelia
CPT/HCPCS: 72146

== ENCOUNTER → 2022-07-14 16:28 | Outpatient (CLI) | payer MEDICARE, OTHER, SELFPAY ==
--- NOTE | 2022-07-14 | DI.MRI.S_ITS ---
PROCEDURE: MR LUMBAR SPINE WO CON INDICATIONS: spondylosis w/o myelothpathy, r/o FX TECHNIQUE: Noncontrast sagittal T1 spin echo and T2 fast echo, sagittal STIR, and T2 fast spin echo through the lumbar spine. In cases with scoliosis, additional coronal T2 fast spin echo may be performed. COMPARISON: [facility], , MR LUMBAR SPINE WO CON, 04/18/2021, 11:55. FINDINGS: Degenerative straightening of the usual lumbar lordosis. Degenerative anterolisthesis of L5 on S1 measuring 4 millimeters. Otherwise normal alignment. Vertebral body heights maintained. No suspicious focal marrow signal abnormality. Discogenic marrow edema at the opposing L4-L5 endplates with an associated inferior L4 endplate Schmorl node. No other significant marrow edema identified. Facet osteoarthropathy, overall moderate to severe, from L3-L4 through L5-S1 with associated subchondral cystic change and sclerosis. Normal position of the conus. 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 Regional soft tissues unremarkable. At T12-L1, no spinal canal or neural foraminal stenosis. At L1-L2, no spinal canal or neural foraminal stenosis. At L2-L3, diffuse disc bulge and superimposed broad-based posterior disc protrusion flattens the ventral thecal sac with disc material displacing the bilateral descending L3 nerve roots in both subarticular zones. Foraminal components of the disc bulge contribute to moderate bilateral neural foraminal stenosis. At L3-L4, diffuse disc bulge flattens the ventral thecal sac with a superimposed broad-based posterior disc protrusion. Disc material displaces the descending L4 nerve roots in both subarticular zones. Foraminal components of the disc bulge combine with facet hypertrophy to produce moderate left and mild right neural foraminal stenosis. At L4-L5, diffuse disc bulge flattens the ventral thecal sac with no appreciable mass effect on the descending L5 nerve roots. There is moderate to severe neural foraminal stenosis with disc material abutting and flattening the exiting L4 nerve roots. At L5-S1, diffuse disc bulge and superimposed broad-based posterior disc protrusion. Disc material slightly displaces the descending S1 nerve roots in both subarticular zones. Moderate to severe neural foraminal narrowing on the right with mild deformation of the exiting right L5 nerve roots. IMPRESSION: Multilevel multifactorial degenerative changes, not significantly progressed when compared with the prior exam. No definite evidence of focal nerve root impingement. Discogenic marrow edema at the L4-L5 endplates represents a potential source of nonradicular axial back pain. This is not significantly changed from the previous exam. Dictated by: Tam Guy M.D. on 07/15/2022 at 15:16 Approved by: Tam Guy M.D. on 07/15/2022 at 15:20
== END ==
PROVIDERS: PCP Nurse Practitioner; Referring Provider Physical Medicine & Rehabilitation; Visit Provider Physical Medicine & Rehabilitation
DX: M47.816 Spondylosis without myelopathy or radiculopathy, lumbar region (principal); R93.7 Abnormal findings on diagnostic imaging of other parts of musculoskeletal system
CPT/HCPCS: 72148

== ENCOUNTER → 2022-09-14 15:17 | Outpatient (CLI) | payer MEDICARE, OTHER, SELFPAY ==
[2022-09-14 15:52] LABS: Hematocrit 30.8 % (36-46); Hemoglobin 10.5 g/dL (12.0-16.0)
[2022-09-14 16:10] LABS: BUN Creatinine Ratio 24.4 (6-22); Blood Urea Nitrogen 49 mg/dL (7-17); Calcium 9.1 mg/dL (8.4-10.2); Carbon Dioxide 27 mmol/L (22-32); Chloride 101 mmol/L (98-107); Estimated Glomerular Filt Rate 24 mL/min (>60); Glucose 81 mg/dL (80-110); HEMOLYSIS < 15 (0-50); Potassium 4.3 mmol/L (3.4-5.1); Sodium 139 mmol/L (137-145)
[2022-09-14 18:54] LABS: Creatinine Urine Random 194.4 mg/dL; Protein (Total) Urine Random 173 mg/dL (0-12); Protein Creatinine Ratio Urine 0.88 GRAM/24H
[2022-09-15 06:36] LABS: Parathyroid Hormone Int 165 pg/mL (15-65)
== END ==
PROVIDERS: PCP Nurse Practitioner; Referring Provider Student in an Organized Health Care Education/Training Program; Visit Provider Student in an Organized Health Care Education/Training Program
DX: N05.9 Unspecified nephritic syndrome with unspecified morphologic changes (principal); D64.9 Anemia, unspecified; N25.81 Secondary hyperparathyroidism of renal origin; R80.9 Proteinuria, unspecified
CPT/HCPCS: 36415; 80048; 82570; 83970; 84156; 85014; 85018

== ENCOUNTER → 2022-09-16 14:07 | Outpatient (CLI) | payer MEDICARE, OTHER, SELFPAY ==
--- NOTE | 2022-09-16 14:09 | DI.RAD.S_ITS ---
PROCEDURE: XR ANKLE LT MIN 3V INDICATIONS: Left ankle pain TECHNIQUE: 3 views of the ankle were acquired. COMPARISON: None. FINDINGS: Bones: No fractures or dislocations. Ankle mortise is normally aligned. No suspicious bony lesions. Plantar calcaneal spur these 0 5. Soft tissues: No tibiotalar joint effusion. Achilles tendon appears normal. IMPRESSION: 1. No fracture or dislocation. 2. Calcaneal enthesopathy. Dictated by: Terell Martins [facility] Interpreted: Angela Evangelista MD on 09/16/2022 at 14:56 Transcribed by: SHIRA on 09/16/2022 at 14:58 Approved by: Angela Evangelista M.D. on 09/16/2022 at 15:29
== END ==
PROVIDERS: PCP Nurse Practitioner; Referring Provider Nurse Practitioner Family; Visit Provider Nurse Practitioner Family
DX: M77.32 Calcaneal spur, left foot (principal); M25.572 Pain in left ankle and joints of left foot
CPT/HCPCS: 73610

== ENCOUNTER → 2022-11-18 12:37 | Outpatient (CLI) | payer MEDICARE, OTHER, SELFPAY | PROVIDERS: PCP Nurse Practitioner; Referring Provider Nurse Practitioner; Visit Provider Nurse Practitioner | DX: M81.0 Age-related osteoporosis without current pathological fracture (principal); Z13.820 Encounter for screening for osteoporosis; Z78.0 Asymptomatic menopausal state; Z90.710 Acquired absence of both cervix and uterus; Z85.828 Personal history of other malignant neoplasm of skin | CPT/HCPCS: 77080 ==

== ENCOUNTER → 2022-11-18 13:02 | Outpatient (CLI) | payer MEDICARE, OTHER, SELFPAY ==
[2022-11-18 14:56] LABS: BUN Creatinine Ratio 20.9 (6-22); Blood Urea Nitrogen 44 mg/dL (7-17); Calcium 9.3 mg/dL (8.4-10.2); Carbon Dioxide 25 mmol/L (22-32); Chloride 104 mmol/L (98-107); Estimated Glomerular Filt Rate 22 mL/min (>60); Glucose 71 mg/dL (80-110); HEMOLYSIS < 15 (0-50); Potassium 4.1 mmol/L (3.4-5.1); Sodium 139 mmol/L (137-145)
[2022-11-18 15:12] LABS: Creatinine Urine Random 101.3 mg/dL; Protein (Total) Urine Random 40 mg/dL (0-12); Protein Creatinine Ratio Urine 0.39 GRAM/24H
[2022-11-20 07:40] LABS: Parathyroid Hormone Int 102 pg/mL (15-65)
== END ==
PROVIDERS: PCP Nurse Practitioner; Referring Provider Student in an Organized Health Care Education/Training Program; Visit Provider Student in an Organized Health Care Education/Training Program
DX: N05.9 Unspecified nephritic syndrome with unspecified morphologic changes (principal); N25.81 Secondary hyperparathyroidism of renal origin; R80.9 Proteinuria, unspecified
CPT/HCPCS: 36415; 80048; 82570; 83970; 84156

== ENCOUNTER → 2022-12-29 12:43 | Outpatient (CLI) | payer MEDICARE, OTHER, SELFPAY ==
--- NOTE | 2022-12-29 | DI.MG.S_ITS ---
BILATERAL DIGITAL SCREENING MAMMOGRAM 3D/2D WITH CAD: 12/29/2022 CLINICAL: Routine screening. Comparison is made to exams dated: 12/25/2021 mammogram, 01/09/2020 mammogram, and 12/15/2018 mammogram - [facility]. Both breasts are heterogeneously dense, which may obscure small masses (category c / 51-75% glandular tissue). Current study was also evaluated with a Computer Aided Detection (CAD) system. There are benign vascular calcifications in both breasts. No significant masses, calcifications, or other findings are seen in either breast. There has been no significant interval change. IMPRESSION: BENIGN There is no mammographic evidence of malignancy. A 1 year screening mammogram is recommended. This exam was interpreted at Station ID: [id number]. NOTE: For mammograms, a report in lay terms will be sent to the patient. Approximately 15% of breast malignancies will not be visualized mammographically. In the management of a palpable breast mass, a negative mammogram must not discourage biopsy of a clinically suspicious lesion. Electronically Signed By: Elizabeth gold/erlinda:12/29/2022 15:48:01 letter sent: Normal Exam ACR BI-RADS Category 2: Benign Finding(s) 3342F
== END ==
PROVIDERS: PCP Nurse Practitioner; Referring Provider Nurse Practitioner; Visit Provider Nurse Practitioner
DX: Z12.31 Encounter for screening mammogram for malignant neoplasm of breast (principal)
CPT/HCPCS: 77063; 77067

== ENCOUNTER → 2023-01-05 17:29 | Outpatient (CLI) | payer MEDICARE, OTHER, SELFPAY ==
[2023-01-05 18:01] LABS: Add Manual Diff / Slide Review NO; Basophils Absolute Auto 100 /uL (0-100); Eosinophils Absolute Auto 200 /uL (0-450); Eosinophils Percent Auto 3.1 % (2-4); Hematocrit 32.9 % (36-46); Hemoglobin 11.1 g/dL (12.0-16.0); Lymphocytes Absolute Auto 2100 /uL (1100-4500); Lymphocytes Percent Auto 29.7 % (25-40); Mean Corpuscular HGB Conc 33.7 % (30-36); Mean Corpuscular Hemoglobin 29.7 PG (26-34); Monocytes Absolute Auto 700 /uL (0-900); Neutrophils Absolute Auto 3900 /uL (1500-7000); Neutrophils Percent Auto 56.2 % (50-75); Platelet Count 153 X10^3/uL (150-400); Red Blood Cell Count 3.74 X10^6/uL (4.0-5.2); Red Cell Distribution Width 15.1 % (11.6-14.8)
[2023-01-05 18:19] LABS: HEMOLYSIS < 15 (0-50); Iron 48 ug/dL (37-170)
[2023-01-05 18:26] LABS: Alanine Aminotransferase 23 IU/L (<35); Albumin 4.1 g/dL (3.5-5.0); Albumin Globulin Ratio 1.2 (1.0-2.8); Alkaline Phosphatase 43 U/L (38-126); Aspartate Aminotransferase 25 IU/L (14-36); BUN Creatinine Ratio 26.1 (6-22); Bilirubin Total 0.5 mg/dL (0.2-1.3); Blood Urea Nitrogen 54 mg/dL (7-17); Calcium 9.1 mg/dL (8.4-10.2); Carbon Dioxide 29 mmol/L (22-32); Chloride 103 mmol/L (98-107); Estimated Glomerular Filt Rate 23 mL/min (>60); Globulin 3.3 g/dL (1.7-4.1); Glucose 90 mg/dL (80-110); HEMOLYSIS < 15 (0-50); Potassium 3.5 mmol/L (3.4-5.1); Sodium 142 mmol/L (137-145); Total Protein 7.4 g/dL (6.3-8.2)
[2023-01-05 18:33] LABS: Percent Iron Saturation 19 % (15-50); Total Iron Binding Capacity 249 ug/dL (265-497); Transferrin 181 mg/dL (206-381)
[2023-01-05 19:01] LABS: Ferritin 146 ng/mL (11-264)
[2023-01-05 19:13] LABS: Appearance Urine UA CLOUDY; Bilirubin Urine UA NEGATIVE (NEGATIVE); Color Urine UA YELLOW; Glucose Urine UA NEGATIVE (Negative); Ketones Urine UA NEGATIVE (NEGATIVE); Leukocyte Esterase Urine UA 3+ (NEGATIVE); Nitrite Urine UA NEGATIVE (Negative); Occult Blood Urine UA 1+ (Negative); Protein Urine UA NEGATIVE (Negative); Urobilinogen Urine UA 0.2 E.U./dL (0.2)
[2023-01-05 19:18] LABS: pH Urine UA 5.5 (4.5-8.0)
[2023-01-05 19:26] LABS: Bacteria Urine Few (2-10); Culture Indicated Urine Specimen Cultured; RBC Urine 0-1/HPF (0-5/HPF); Squamous Epithelial Cell Urine 0-1 /HPF (0-5/HPF); WBC Urine 10-30/HPF (0-5/HPF)
== END ==
PROVIDERS: PCP Nurse Practitioner; Referring Provider Internal Medicine Hematology & Oncology; Visit Provider Internal Medicine Hematology & Oncology
DX: R30.0 Dysuria (principal); N18.9 Chronic kidney disease, unspecified; D63.1 Anemia in chronic kidney disease; N18.30 Chronic kidney disease, stage 3 unspecified
CPT/HCPCS: 36415; 80053; 81001; 82728; 83540; 83550; 85025; 87077; 87086; 87186

== ENCOUNTER → 2023-02-22 13:21 | Outpatient (CLI) | payer MEDICARE, OTHER, SELFPAY ==
[2023-02-22 14:29] LABS: BUN Creatinine Ratio 21.5 (6-22); Blood Urea Nitrogen 47 mg/dL (7-17); Calcium 9.5 mg/dL (8.4-10.2); Carbon Dioxide 30 mmol/L (22-32); Chloride 103 mmol/L (98-107); Estimated Glomerular Filt Rate 21 mL/min (>60); Glucose 87 mg/dL (80-110); HEMOLYSIS < 15 (0-50); Potassium 4.5 mmol/L (3.4-5.1); Sodium 140 mmol/L (137-145)
[2023-02-22 16:45] LABS: Creatinine Urine Random 129.5 mg/dL
[2023-02-22 16:54] LABS: Protein (Total) Urine Random 16 mg/dL (0-12); Protein Creatinine Ratio Urine 0.12 GRAM/24H
[2023-02-24 11:00] LABS: Parathyroid Hormone Int 113 pg/mL (15-65)
== END ==
PROVIDERS: PCP Nurse Practitioner; Referring Provider Student in an Organized Health Care Education/Training Program; Visit Provider Student in an Organized Health Care Education/Training Program
DX: N05.9 Unspecified nephritic syndrome with unspecified morphologic changes (principal); N25.81 Secondary hyperparathyroidism of renal origin; R80.9 Proteinuria, unspecified
CPT/HCPCS: 36415; 80048; 82570; 83970; 84156

== ENCOUNTER → 2023-03-07 14:51 | Outpatient (CLI) | payer MEDICARE, OTHER, SELFPAY ==
[2023-03-07 18:29] LABS: Appearance Urine UA CLEAR; Bilirubin Urine UA NEGATIVE (NEGATIVE); Color Urine UA YELLOW; Glucose Urine UA NEGATIVE (Negative); Ketones Urine UA NEGATIVE (NEGATIVE); Leukocyte Esterase Urine UA 1+ (NEGATIVE); Nitrite Urine UA NEGATIVE (Negative); Occult Blood Urine UA 1+ (Negative); Protein Urine UA NEGATIVE (Negative); Specific Gravity Urine UA <=1.005 (1.000-1.035); Urobilinogen Urine UA 0.2 E.U./dL (0.2)
[2023-03-07 18:55] LABS: Amorphous Sediment Urine 2+; Bacteria Urine Many (>30); Culture Indicated Urine Specimen Cultured; RBC Urine 1-5/HPF (0-5/HPF); Squamous Epithelial Cell Urine 5-10 /HPF (0-5/HPF); Transitional Epi Cells Urine 1-5/HPF (0-5/HPF); WBC Urine 5-10/HPF (0-5/HPF)
== END ==
PROVIDERS: PCP Nurse Practitioner; Visit Provider Family Medicine
DX: J03.90 Acute tonsillitis, unspecified (principal); I10 Essential (primary) hypertension; R31.9 Hematuria, unspecified; Z01.812 Encounter for preprocedural laboratory examination; Z87.440 Personal history of urinary (tract) infections; N18.30 Chronic kidney disease, stage 3 unspecified
CPT/HCPCS: 81001; 87070; 87077; 87086; 87186

== ENCOUNTER → 2023-03-23 10:16 | Outpatient (CLI) | payer MEDICARE, OTHER, SELFPAY ==
[2023-03-23 12:43] LABS: Appearance Urine UA CLEAR; Bilirubin Urine UA NEGATIVE (NEGATIVE); Color Urine UA YELLOW; Glucose Urine UA NEGATIVE (Negative); Ketones Urine UA NEGATIVE (NEGATIVE); Leukocyte Esterase Urine UA NEGATIVE (NEGATIVE); Nitrite Urine UA NEGATIVE (Negative); Occult Blood Urine UA NEGATIVE (Negative); Protein Urine UA NEGATIVE (Negative); Urobilinogen Urine UA 0.2 E.U./dL (0.2)
[2023-03-23 12:50] LABS: pH Urine UA 5.5 (4.5-8.0)
[2023-03-23 12:59] LABS: Bacteria Urine Occasional (0-1); Culture Indicated Urine Cult Not Indicated; RBC Urine None Seen (0-5/HPF); Squamous Epithelial Cell Urine 0-1 /HPF (0-5/HPF); WBC Urine 0-1/HPF (0-5/HPF)
== END ==
PROVIDERS: PCP Nurse Practitioner; Referring Provider Family Medicine; Visit Provider Family Medicine
DX: N39.0 Urinary tract infection, site not specified (principal)
CPT/HCPCS: 81001

== ENCOUNTER → 2023-04-19 12:30 | Outpatient (CLI) | payer MEDICARE, OTHER, SELFPAY ==
[2023-04-19 13:23] LABS: Add Manual Diff / Slide Review NO; Basophils Absolute Auto 0 /uL (0-100); Basophils Percent Auto 0.8 % (0-2); Eosinophils Absolute Auto 100 /uL (0-450); Eosinophils Percent Auto 2.6 % (2-4); Hematocrit 30.2 % (36-46); Hemoglobin 10.2 g/dL (12.0-16.0); Lymphocytes Absolute Auto 1500 /uL (1100-4500); Lymphocytes Percent Auto 35.8 % (25-40); Mean Corpuscular HGB Conc 33.8 % (30-36); Mean Corpuscular Hemoglobin 30.3 PG (26-34); Mean Corpuscular Volume 89.6 fL (80-100); Monocytes Absolute Auto 400 /uL (0-900); Monocytes Percent Auto 10.5 % (3-14); Neutrophils Absolute Auto 2100 /uL (1500-7000); Neutrophils Percent Auto 50.3 % (50-75); Platelet Count 139 X10^3/uL (150-400); Red Blood Cell Count 3.37 X10^6/uL (4.0-5.2); White Blood Cell Count 4.2 X10^3/uL (4.5-11.0)
[2023-04-19 13:36] LABS: INR 1.1 (0.9-1.3); Prothrombin Time 12.4 SECONDS (10.1-12.7)
[2023-04-19 13:39] LABS: PTT Partial Thromboplastin Tim 28 SECONDS (26-36)
[2023-04-19 14:05] LABS: Alanine Aminotransferase 17 IU/L (<35); Albumin 3.9 g/dL (3.5-5.0); Albumin Globulin Ratio 1.5 (1.0-2.8); Alkaline Phosphatase 36 U/L (38-126); Aspartate Aminotransferase 21 IU/L (14-36); BUN Creatinine Ratio 26.1 (6-22); Bilirubin Total 0.4 mg/dL (0.2-1.3); Blood Urea Nitrogen 53 mg/dL (7-17); Calcium 9.4 mg/dL (8.4-10.2); Carbon Dioxide 28 mmol/L (22-32); Chloride 105 mmol/L (98-107); Estimated Glomerular Filt Rate 23 mL/min (>60); Globulin 2.6 g/dL (1.7-4.1); Glucose 79 mg/dL (80-110); HEMOLYSIS < 15 (0-50); Potassium 3.7 mmol/L (3.4-5.1); Sodium 140 mmol/L (137-145); Total Protein 6.5 g/dL (6.3-8.2)
== END ==
PROVIDERS: PCP Nurse Practitioner; Referring Provider Physical Medicine & Rehabilitation; Visit Provider Physical Medicine & Rehabilitation
DX: Z01.818 Encounter for other preprocedural examination (principal); Z51.81 Encounter for therapeutic drug level monitoring; Z01.812 Encounter for preprocedural laboratory examination
CPT/HCPCS: 36415; 80053; 85025; 85610; 85730; 93005; 93010

== ENCOUNTER → 2023-05-16 14:48 | Outpatient (CLI) | payer MEDICARE, OTHER, SELFPAY ==
[2023-05-16 17:26] LABS: BUN Creatinine Ratio 26.1 (6-22); Blood Urea Nitrogen 57 mg/dL (7-17); Calcium 9.7 mg/dL (8.4-10.2); Carbon Dioxide 27 mmol/L (22-32); Chloride 104 mmol/L (98-107); Estimated Glomerular Filt Rate 21 mL/min (>60); Glucose 86 mg/dL (80-110); HEMOLYSIS < 15 (0-50); Potassium 3.6 mmol/L (3.4-5.1); Sodium 141 mmol/L (137-145)
[2023-05-16 17:42] LABS: Free T4, Direct Thyroxine 1.31 ng/dL (0.78-2.19)
[2023-05-16 17:56] LABS: Thyroid Stimulating Hormone 2.22 uIU/mL (0.47-4.68)
[2023-05-18 06:08] LABS: Parathyroid Hormone Int 87 pg/mL (15-65)
[2023-05-19 12:40] LABS: Creatinine, Urine 74.7 mg/dL (Not Estab.); N-telo/Creat. Ratio 10 (0-89); N-telopeptide 68 nmol BCE (Not Estab.)
== END ==
PROVIDERS: PCP Nurse Practitioner; Referring Provider Internal Medicine Endocrinology, Diabetes & Metabolism; Visit Provider Internal Medicine Endocrinology, Diabetes & Metabolism
DX: M81.0 Age-related osteoporosis without current pathological fracture (principal); M81.8 Other osteoporosis without current pathological fracture
CPT/HCPCS: 36415; 80048; 82306; 82523; 82570; 83970; 84439; 84443

== ENCOUNTER → 2023-05-18 10:23 | Outpatient (CLI) | payer MEDICARE, OTHER, SELFPAY ==
[2023-05-18 16:43] LABS: Calcium 24 Hour Urine 14 mg/day (100-300); Calcium Urine Random 1.4 mg/dL; Collection Time Urine 24 Hours; Total Volume Urine 1000 mL
[2023-05-18 16:45] LABS: Collection Time Urine 24 Hours; Creatinine 24 Hour Urine 565 mg/day (800-1800); Creatinine Urine Random 56.5 mg/dL; Total Volume Urine 1000 mL
== END ==
PROVIDERS: PCP Nurse Practitioner; Referring Provider Internal Medicine Endocrinology, Diabetes & Metabolism; Visit Provider Internal Medicine Endocrinology, Diabetes & Metabolism
DX: M81.0 Age-related osteoporosis without current pathological fracture (principal)
CPT/HCPCS: 82340; 82570

== ENCOUNTER → 2023-05-25 12:42 | Outpatient (CLI) | payer MEDICARE, OTHER, SELFPAY ==
--- NOTE | 2023-05-25 12:46 | DI.RAD.S_ITS ---
PROCEDURE: XR THORACIC SPINE 2V INDICATIONS: Pain in back after fall TECHNIQUE: 2 or views of the thoracic spine were acquired. COMPARISON: [facility], CR, XR THORACIC SPINE 3V, 05/15/2018, 16:03. FINDINGS: Bones: No fractures or dislocations. No suspicious bony lesions. 12 pairs of ribs are noted, and appear intact where visualized. Degenerative changes of the thoracic spine with osteophytosis and disc height loss. Nerve stimulator in place with leads tracking to the midthoracic level. Soft tissues: No paravertebral stripe thickening. IMPRESSION: Degenerative changes of the thoracic spine. No acute fracture. Dictated by: Gerald Cope M.D. on 05/25/2023 at 13:35 Approved by: Gerald Cope M.D. on 05/25/2023 at 13:37
--- NOTE | 2023-05-25 12:46 | DI.RAD.S_ITS ---
PROCEDURE: XR LUMBAR SPINE MIN 4V INDICATIONS: Pain in back after fall TECHNIQUE: 5 views of the lumbar spine were acquired, including bilateral oblique views. COMPARISON: [facility], CR, XR LUMBAR SPINE MIN 4V, 03/07/2019, 12:47. FINDINGS: Bones: Diffusely decreased osseous mineralization. 5 nonrib-bearing vertebrae are present. Straightening of normal lumbar lordosis. There is grade 1 retrolisthesis of L3 on L4 and grade 1 anterolisthesis of L4 on L5. Multilevel osteophytosis. Facet arthropathy, worse at the lower lumbar spine. Multilevel disc height loss. No vertebral body compression fractures. No suspicious bony lesions. Soft tissues: Overlying bowel gas pattern is normal. No suspicious soft tissue calcifications. Atherosclerotic vascular calcifications. Spinal cord stimulator in place. Oblique images: No definite pars defects. Evaluation is limited secondary to decreased mineralization. IMPRESSION: Multilevel degenerative changes of the lumbar spine. No acute fractures. Dictated by: Gerald Cope M.D. on 05/25/2023 at 13:37 Approved by: Gerald Cope M.D. on 05/25/2023 at 13:40
--- NOTE | 2023-05-25 12:46 | DI.RAD.S_ITS ---
PROCEDURE: XR ANKLE LT MIN 3V INDICATIONS: Pain in back after fall TECHNIQUE: 3 views of the ankle were acquired. COMPARISON: [facility], CR, XR ANKLE LT MIN 3V, 09/16/2022, 14:12. FINDINGS: Bones: No acute fractures or dislocations. Ankle mortise is normally aligned. No suspicious bony lesions. Soft tissues: Nonspecific soft tissue edema is seen surrounding the ankle. IMPRESSION: No acute osseous abnormality. If clinical suspicion and/or symptoms persist, additional imaging with repeat plain films, or advanced imaging (e.g. CT, MRI) may be helpful for further assessment. Approved by: Javi Rodriguez M.D. on 05/25/2023 at 13:52
--- NOTE | 2023-05-25 12:46 | DI.RAD.S_ITS ---
PROCEDURE: XR SACRUM COCCYX MIN 2V INDICATIONS: Pain in back after fall TECHNIQUE: 3 views of the sacrum and coccyx acquired. COMPARISON: [facility], , SACRUM-COCCYX MIN 2 VIEWS, 05/25/2017, 12:10. FINDINGS: Bones: No fractures or dislocations. No suspicious bony lesions. Degenerative changes of the sacroiliac joints and pubic symphysis. Soft tissues: Visualized bowel gas pattern is normal. No suspicious soft tissue densities. IMPRESSION: No acute fracture. Dictated by: Gerald Cope M.D. on 05/25/2023 at 13:40 Approved by: Gerald Cope M.D. on 05/25/2023 at 14:15
--- NOTE | 2023-05-25 12:46 | DI.RAD.S_ITS ---
PROCEDURE: XR ANKLE RT MIN 3V INDICATIONS: Pain in back after fall TECHNIQUE: 3 views of the ankle were acquired. COMPARISON: None. FINDINGS: Bones: No acute fractures or dislocations. Ankle mortise is normally aligned. No suspicious bony lesions. Soft tissues: Mild soft tissue edema surrounding the ankle is more prominent over the lateral malleolus. IMPRESSION: No acute osseous abnormality. If clinical suspicion and/or symptoms persist, additional imaging with repeat plain films, or advanced imaging (e.g. CT, MRI) may be helpful for further assessment. Approved by: Javi Rodriguez M.D. on 05/25/2023 at 13:51
== END ==
PROVIDERS: PCP Nurse Practitioner; Referring Provider Physician Assistant; Visit Provider Physician Assistant
DX: M47.814 Spondylosis without myelopathy or radiculopathy, thoracic region (principal); M47.816 Spondylosis without myelopathy or radiculopathy, lumbar region; M47.818 Spondylosis without myelopathy or radiculopathy, sacral and sacrococcygeal region; M25.472 Effusion, left ankle; M25.471 Effusion, right ankle; M25.571 Pain in right ankle and joints of right foot; M25.572 Pain in left ankle and joints of left foot; M54.9 Dorsalgia, unspecified
CPT/HCPCS: 72070; 72110; 72220; 73610

== ENCOUNTER → 2023-06-27 13:35 | Outpatient (CLI) | payer MEDICARE, OTHER, SELFPAY ==
[2023-06-27 14:48] LABS: Hematocrit 28.4 % (36-46); Hemoglobin 9.7 g/dL (12.0-16.0)
[2023-06-27 15:06] LABS: BUN Creatinine Ratio 22.1 (6-22); Blood Urea Nitrogen 45 mg/dL (7-17); Calcium 9.2 mg/dL (8.4-10.2); Carbon Dioxide 27 mmol/L (22-32); Chloride 103 mmol/L (98-107); Estimated Glomerular Filt Rate 23 mL/min (>60); Glucose 84 mg/dL (80-110); HEMOLYSIS < 15 (0-50); Sodium 139 mmol/L (137-145)
[2023-06-27 16:07] LABS: Creatinine Urine Random 86.7 mg/dL; Protein (Total) Urine Random 22 mg/dL (0-12); Protein Creatinine Ratio Urine 0.25 GRAM/24H
[2023-06-29 06:16] LABS: Parathyroid Hormone Int 77 pg/mL (15-65)
== END ==
PROVIDERS: PCP Nurse Practitioner; Referring Provider Student in an Organized Health Care Education/Training Program; Visit Provider Student in an Organized Health Care Education/Training Program
DX: N05.9 Unspecified nephritic syndrome with unspecified morphologic changes (principal); D64.9 Anemia, unspecified; R80.9 Proteinuria, unspecified; N25.81 Secondary hyperparathyroidism of renal origin
CPT/HCPCS: 36415; 80048; 82570; 83970; 84156; 85014; 85018

== ENCOUNTER → 2023-08-30 15:20 | Outpatient (CLI) | payer MEDICARE, OTHER, SELFPAY ==
[2023-08-30 18:29] LABS: BUN Creatinine Ratio 25.3 (6-22); Blood Urea Nitrogen 61 mg/dL (7-17); Calcium 9.4 mg/dL (8.4-10.2); Carbon Dioxide 27 mmol/L (22-32); Chloride 99 mmol/L (98-107); Estimated Glomerular Filt Rate 19 mL/min (>60); Glucose 90 mg/dL (80-110); HEMOLYSIS < 15 (0-50); Potassium 3.6 mmol/L (3.4-5.1); Sodium 136 mmol/L (137-145)
[2023-08-30 21:27] LABS: Influenza A - CEPHEID Flu A NEGATIVE (NEGATIVE); Influenza B - CEPHEID Flu B NEGATIVE (NEGATIVE); Respiratory Syncytial Virus Negative (Negative)
[2023-08-30 21:41] LABS: COVID-19 CEPHEID 4-PLEX PCR Negative (Negative)
== END ==
PROVIDERS: Physician Assistant; PCP Nurse Practitioner; Referring Provider Internal Medicine Cardiovascular Disease; Visit Provider Internal Medicine Cardiovascular Disease
DX: I10 Essential (primary) hypertension (principal); R05.9 Cough, unspecified
CPT/HCPCS: 0241U; 36415; 80048

== ENCOUNTER → 2023-08-30 16:53 | Outpatient (CLI) | payer MEDICARE, OTHER, SELFPAY ==
--- NOTE | 2023-08-30 16:55 | DI.RAD.S_ITS ---
PROCEDURE: XR CHEST 2V INDICATIONS: cough /severe congestion x 10 days w/ crackling TECHNIQUE: 2 views of the chest were acquired. COMPARISON: [facility], , CHEST 1 VIEW, 04/26/2015, 3:58. FINDINGS: Surgical changes and devices: Spinal stimulator with leads overlying the midthoracic spine. Lungs and pleura: Lungs are clear. No pleural effusions or pneumothorax. Mediastinum: Mediastinal contours are normal. Heart size is normal. Bones and chest wall: No suspicious bony abnormalities. Soft tissues appear unremarkable. IMPRESSION: No acute cardiopulmonary abnormality is seen. Dictated by: Angela Evangelista M.D. on 08/31/2023 at 16:38 Approved by: Angela Evangelista M.D. on 08/31/2023 at 16:38
== END ==
PROVIDERS: PCP Nurse Practitioner; Referring Provider Physician Assistant; Visit Provider Physician Assistant
DX: R05.9 Cough, unspecified (principal); I10 Essential (primary) hypertension
CPT/HCPCS: 0241U; 36415; 71046; 80048

== ENCOUNTER → 2023-09-22 10:53 | Outpatient (CLI) | payer MEDICARE, OTHER, SELFPAY ==
[2023-09-22 13:20] LABS: Bilirubin Urine UA NEGATIVE (NEGATIVE); Glucose Urine UA NEGATIVE (Negative); Ketones Urine UA NEGATIVE (NEGATIVE); Leukocyte Esterase Urine UA 1+ (NEGATIVE); Nitrite Urine UA NEGATIVE (Negative); Occult Blood Urine UA NEGATIVE (Negative); Protein Urine UA NEGATIVE (Negative); Urobilinogen Urine UA 0.2 E.U./dL (0.2)
[2023-09-22 13:23] LABS: Appearance Urine UA Clear; Color Urine UA Straw; pH Urine UA 5.5 (4.5-8.0)
[2023-09-22 13:46] LABS: Bacteria Urine Few (2-10); Culture Indicated Urine Specimen Cultured; RBC Urine None Seen (0-5/HPF); Squamous Epithelial Cell Urine 1-5 /HPF (0-5/HPF); WBC Urine 5-10/HPF (0-5/HPF)
== END ==
PROVIDERS: PCP Nurse Practitioner; Referring Provider Nurse Practitioner; Visit Provider Nurse Practitioner
DX: R39.9 Unspecified symptoms and signs involving the genitourinary system (principal)
CPT/HCPCS: 81001; 87077; 87086; 87186

== ENCOUNTER → 2023-09-23 14:24 | Outpatient (CLI) | payer MEDICARE, OTHER, SELFPAY ==
[2023-09-23 15:33] LABS: Hematocrit 30.9 % (36-46); Hemoglobin 10.5 g/dL (12.0-16.0)
[2023-09-23 16:08] LABS: BUN Creatinine Ratio 28.2 (6-22); Blood Urea Nitrogen 60 mg/dL (7-17); Calcium 9.5 mg/dL (8.4-10.2); Carbon Dioxide 29 mmol/L (22-32); Chloride 101 mmol/L (98-107); Estimated Glomerular Filt Rate 22 mL/min (>60); Glucose 78 mg/dL (80-110); HEMOLYSIS < 15 (0-50); Potassium 3.3 mmol/L (3.4-5.1); Sodium 138 mmol/L (137-145)
[2023-09-23 18:22] LABS: Creatinine Urine Random 81.4 mg/dL; Protein (Total) Urine Random 18 mg/dL (0-12); Protein Creatinine Ratio Urine 0.22 GRAM/24H
[2023-09-27 10:02] LABS: Parathyroid Hormone Int 96 pg/mL (15-65)
== END ==
PROVIDERS: PCP Nurse Practitioner; Referring Provider Student in an Organized Health Care Education/Training Program; Visit Provider Student in an Organized Health Care Education/Training Program
DX: N05.9 Unspecified nephritic syndrome with unspecified morphologic changes (principal); D70.9 Neutropenia, unspecified; D63.1 Anemia in chronic kidney disease; N25.81 Secondary hyperparathyroidism of renal origin; R80.9 Proteinuria, unspecified
CPT/HCPCS: 36415; 80048; 82570; 83970; 84156; 85014; 85018

== ENCOUNTER → 2023-09-29 12:40 | Outpatient (CLI) | payer MEDICARE, OTHER, SELFPAY ==
[2023-09-29 13:32] LABS: Hemoglobin 10.8 g/dL (12.0-16.0)
[2023-09-29 13:59] LABS: BUN Creatinine Ratio 23.5 (6-22); Blood Urea Nitrogen 54 mg/dL (7-17); Calcium 9.4 mg/dL (8.4-10.2); Carbon Dioxide 28 mmol/L (22-32); Chloride 106 mmol/L (98-107); Estimated Glomerular Filt Rate 20 mL/min (>60); Glucose 93 mg/dL (80-110); HEMOLYSIS < 15 (0-50); Sodium 141 mmol/L (137-145)
[2023-09-29 16:40] LABS: Creatinine Urine Random 121.4 mg/dL; Protein (Total) Urine Random 21 mg/dL (0-12); Protein Creatinine Ratio Urine 0.17 GRAM/24H
[2023-10-01 10:08] LABS: Parathyroid Hormone Int 127 pg/mL (15-65)
== END ==
PROVIDERS: PCP Nurse Practitioner; Referring Provider Student in an Organized Health Care Education/Training Program; Visit Provider Student in an Organized Health Care Education/Training Program
DX: N05.9 Unspecified nephritic syndrome with unspecified morphologic changes (principal); D70.9 Neutropenia, unspecified; D63.1 Anemia in chronic kidney disease; N25.81 Secondary hyperparathyroidism of renal origin; R80.9 Proteinuria, unspecified
CPT/HCPCS: 36415; 80048; 82570; 83970; 84156; 85014; 85018

== ENCOUNTER → 2023-11-03 13:43 | Outpatient (CLI) | payer MEDICARE, OTHER, SELFPAY ==
[2023-11-03 15:25] LABS: Uric Acid 12.6 mg/dL (2.5-6.2)
== END ==
PROVIDERS: PCP Nurse Practitioner; Referring Provider Orthopaedic Surgery Foot and Ankle Surgery; Visit Provider Orthopaedic Surgery Foot and Ankle Surgery
DX: M79.672 Pain in left foot (principal); M10.9 Gout, unspecified
CPT/HCPCS: 36415; 84550

== ENCOUNTER → 2023-11-28 17:26 | Outpatient (CLI) | payer MEDICARE, OTHER, SELFPAY ==
[2023-11-28 17:43] LABS: Hematocrit 30.5 % (36-46); Hemoglobin 10.2 g/dL (12.0-16.0)
[2023-11-28 18:12] LABS: BUN Creatinine Ratio 22.7 (6-22); Blood Urea Nitrogen 53 mg/dL (7-17); Calcium 9.3 mg/dL (8.4-10.2); Carbon Dioxide 28 mmol/L (22-32); Chloride 105 mmol/L (98-107); Estimated Glomerular Filt Rate 20 mL/min (>60); Glucose 98 mg/dL (80-110); HEMOLYSIS < 15 (0-50); Potassium 4.1 mmol/L (3.4-5.1); Sodium 139 mmol/L (137-145)
[2023-11-28 19:53] LABS: Appearance Urine UA CLEAR; Bilirubin Urine UA NEGATIVE (NEGATIVE); Color Urine UA YELLOW; Glucose Urine UA NEGATIVE (Negative); Ketones Urine UA NEGATIVE (NEGATIVE); Leukocyte Esterase Urine UA 2+ (NEGATIVE); Nitrite Urine UA NEGATIVE (Negative); Occult Blood Urine UA 1+ (Negative); Protein Urine UA 2+ (Negative); Specific Gravity Urine UA 1.015 (1.000-1.035); Urobilinogen Urine UA 0.2 E.U./dL (0.2)
[2023-11-28 20:21] LABS: Bacteria Urine Moderate (10-30); Culture Indicated Urine Specimen Cultured; RBC Urine 0-1/HPF (0-5/HPF); Squamous Epithelial Cell Urine 1-5 /HPF (0-5/HPF); WBC Urine 30-100/HPF (0-5/HPF)
[2023-11-30 07:14] LABS: Parathyroid Hormone Int 124 pg/mL (15-65)
== END ==
PROVIDERS: PCP Nurse Practitioner; Referring Provider Student in an Organized Health Care Education/Training Program; Visit Provider Student in an Organized Health Care Education/Training Program
DX: D70.9 Neutropenia, unspecified (principal); N05.9 Unspecified nephritic syndrome with unspecified morphologic changes; D63.1 Anemia in chronic kidney disease; R80.9 Proteinuria, unspecified; N25.81 Secondary hyperparathyroidism of renal origin
CPT/HCPCS: 36415; 80048; 81001; 83970; 85014; 85018; 87077; 87086; 87186

== ENCOUNTER → 2023-12-13 10:35 | Outpatient (CLI) | payer MEDICARE, OTHER, SELFPAY ==
[2023-12-13 11:27] LABS: Add Manual Diff / Slide Review NO; Basophils Absolute Auto 0 /uL (0-100); Basophils Percent Auto 0.3 % (0-2); Eosinophils Absolute Auto 0 /uL (0-450); Hematocrit 29.6 % (36-46); Hemoglobin 10.1 g/dL (12.0-16.0); Lymphocytes Absolute Auto 1100 /uL (1100-4500); Mean Corpuscular HGB Conc 34.2 % (30-36); Mean Corpuscular Volume 84.7 fL (80-100); Monocytes Absolute Auto 600 /uL (0-900); Monocytes Percent Auto 6.4 % (3-14); Neutrophils Absolute Auto 7100 /uL (1500-7000); Neutrophils Percent Auto 80.3 % (50-75); Platelet Count 255 X10^3/uL (150-400); Red Blood Cell Count 3.49 X10^6/uL (4.0-5.2); Red Cell Distribution Width 14.2 % (11.6-14.8); White Blood Cell Count 8.8 X10^3/uL (4.5-11.0)
[2023-12-13 11:46] LABS: Alanine Aminotransferase 19 IU/L (<35); Albumin 3.5 g/dL (3.5-5.0); Albumin Globulin Ratio 1.1 (1.0-2.8); Alkaline Phosphatase 38 U/L (38-126); Aspartate Aminotransferase 21 IU/L (14-36); BUN Creatinine Ratio 29.3 (6-22); Bilirubin Total 0.5 mg/dL (0.2-1.3); Blood Urea Nitrogen 65 mg/dL (7-17); Calcium 8.8 mg/dL (8.4-10.2); Carbon Dioxide 25 mmol/L (22-32); Chloride 101 mmol/L (98-107); Estimated Glomerular Filt Rate 21 mL/min (>60); Globulin 3.1 g/dL (1.7-4.1); Glucose 101 mg/dL (80-110); HEMOLYSIS < 15 (0-50); Sodium 136 mmol/L (137-145); Total Protein 6.6 g/dL (6.3-8.2); Uric Acid 11.4 mg/dL (2.5-6.2)
[2023-12-13 12:04] LABS: Free T3, Triiodothyronine Free 2.11 pg/mL (2.77-5.27); Free T4, Direct Thyroxine 1.21 ng/dL (0.78-2.19)
[2023-12-13 12:18] LABS: Thyroid Stimulating Hormone 0.461 uIU/mL (0.47-4.68)
== END ==
PROVIDERS: PCP Nurse Practitioner; Referring Provider Nurse Practitioner; Visit Provider Nurse Practitioner
DX: I10 Essential (primary) hypertension (principal); M81.0 Age-related osteoporosis without current pathological fracture; E78.2 Mixed hyperlipidemia; M10.9 Gout, unspecified; D63.1 Anemia in chronic kidney disease; N18.30 Chronic kidney disease, stage 3 unspecified
CPT/HCPCS: 36415; 80053; 84439; 84443; 84481; 84550; 85025

== ENCOUNTER → 2023-12-21 17:11 | Outpatient (CLI) | payer MEDICARE, OTHER, SELFPAY ==
[2023-12-21 18:17] LABS: Cholesterol 89 mg/dL (140-199); HDL Cholesterol 31 mg/dL (40-60); LDL Cholesterol Calculated 42 mg/dL (<100); Triglycerides 79 mg/dL (35-150)
[2023-12-21 18:18] LABS: BUN Creatinine Ratio 21.1 (6-22); Blood Urea Nitrogen 40 mg/dL (7-17); Calcium 8.9 mg/dL (8.4-10.2); Carbon Dioxide 27 mmol/L (22-32); Chloride 108 mmol/L (98-107); Estimated Glomerular Filt Rate 25 mL/min (>60); Glucose 103 mg/dL (80-110); HEMOLYSIS < 15 (0-50); Potassium 3.9 mmol/L (3.4-5.1); Sodium 141 mmol/L (137-145); Uric Acid 8.9 mg/dL (2.5-6.2)
== END ==
LOC: LAB 17:18
PROVIDERS: PCP Nurse Practitioner; Referring Provider Student in an Organized Health Care Education/Training Program; Visit Provider Student in an Organized Health Care Education/Training Program
DX: N05.9 Unspecified nephritic syndrome with unspecified morphologic changes (principal); I10 Essential (primary) hypertension; M10.00 Idiopathic gout, unspecified site; M81.0 Age-related osteoporosis without current pathological fracture; N18.30 Chronic kidney disease, stage 3 unspecified; D63.1 Anemia in chronic kidney disease; E78.2 Mixed hyperlipidemia
CPT/HCPCS: 36415; 80048; 80061; 84550

== ENCOUNTER → 2023-12-30 | Outpatient (CLI) | payer MEDICARE, OTHER, SELFPAY ==
--- NOTE | 2023-12-30 14:59 | DI.MG.S_ITS ---
Patient Name: TIFFANIE SERRANO date: 1935 Sex: F Attending Physician: Roger Indications: Date: 12/30/2023 15:48 At the request of: JOYCELYN PHAM Procedure: MM screening mammo BI BILATERAL DIGITAL SCREENING MAMMOGRAM 3D/2D WITH CAD: 12/30/2023 CLINICAL: Routine screening. Comparison is made to exams dated: 12/29/2022 mammogram, 12/25/2021 mammogram, and 01/09/2020 mammogram - [facility]. Both breasts are heterogeneously dense, which may obscure small masses (category c / 51-75% glandular tissue). Current study was also evaluated with a Computer Aided Detection (CAD) system. There are benign vascular calcifications in both breasts. No significant masses, calcifications, or other findings are seen in either breast. There has been no significant interval change. IMPRESSION: BENIGN There is no mammographic evidence of malignancy. A 1 year screening mammogram is recommended. This exam was interpreted at Station ID: [id number]. NOTE: For mammograms, a report in lay terms will be sent to the patient. Approximately 15% of breast malignancies will not be visualized mammographically. In the management of a palpable breast mass, a negative mammogram must not discourage biopsy of a clinically suspicious lesion. Electronically Signed By: Keyshawn chan/erlinda:12/30/2023 15:48:53 Continued Report - Page 2 of 2 Patient Name: TIFFANIE SERRANO date: 1935 Sex: F Attending Physician: Roger Indications: Date: 12/30/2023 15:48 At the request of: JOYCELYN PHAM Procedure: MM screening mammo BI letter sent: Normal Exam ACR BI-RADS Category 2: Benign Finding(s) [id number]
== END ==
LOC: MAMMO 14:36
PROVIDERS: PCP Nurse Practitioner; Referring Provider Nurse Practitioner; Visit Provider Nurse Practitioner
DX: Z12.31 Encounter for screening mammogram for malignant neoplasm of breast (principal); R92.333 Mammographic heterogeneous density, bilateral breasts
CPT/HCPCS: 77063; 77067

== ENCOUNTER → 2024-02-03 14:40 | Outpatient (CLI) | payer MEDICARE, OTHER, SELFPAY ==
[2024-02-03 16:00] LABS: BUN Creatinine Ratio 20.3 (6-22); Blood Urea Nitrogen 39 mg/dL (7-17); Calcium 9.3 mg/dL (8.4-10.2); Carbon Dioxide 21 mmol/L (22-32); Chloride 115 mmol/L (98-107); Estimated Glomerular Filt Rate 25 mL/min (>60); Glucose 78 mg/dL (80-110); HEMOLYSIS < 15 (0-50); Potassium 4.3 mmol/L (3.4-5.1); Sodium 141 mmol/L (137-145); Uric Acid 5.6 mg/dL (2.5-6.2)
[2024-02-03 16:35] LABS: Creatinine Urine Random 105.7 mg/dL; Protein (Total) Urine Random 26 mg/dL (0-12); Protein Creatinine Ratio Urine 0.24 GRAM/24H
== END ==
PROVIDERS: PCP Nurse Practitioner; Referring Provider Student in an Organized Health Care Education/Training Program; Visit Provider Student in an Organized Health Care Education/Training Program
DX: N05.9 Unspecified nephritic syndrome with unspecified morphologic changes (principal); D70.9 Neutropenia, unspecified; D63.1 Anemia in chronic kidney disease; M10.00 Idiopathic gout, unspecified site; R80.9 Proteinuria, unspecified; N25.81 Secondary hyperparathyroidism of renal origin
CPT/HCPCS: 36415; 80048; 82570; 84156; 84550

== ENCOUNTER → 2024-02-04 11:26 | Outpatient (CLI) | payer MEDICARE, OTHER, SELFPAY ==
[2024-02-04 12:44] LABS: Add Manual Diff / Slide Review NO; Basophils Absolute Auto 0 /uL (0-100); Basophils Percent Auto 0.6 % (0-2); Eosinophils Absolute Auto 100 /uL (0-450); Eosinophils Percent Auto 2.6 % (2-4); Hematocrit 27.4 % (36-46); Hemoglobin 8.9 g/dL (12.0-16.0); Lymphocytes Absolute Auto 1700 /uL (1100-4500); Lymphocytes Percent Auto 35.8 % (25-40); Mean Corpuscular HGB Conc 32.5 % (30-36); Mean Corpuscular Hemoglobin 29.4 PG (26-34); Mean Corpuscular Volume 90.4 fL (80-100); Monocytes Absolute Auto 500 /uL (0-900); Monocytes Percent Auto 11.2 % (3-14); Neutrophils Absolute Auto 2400 /uL (1500-7000); Neutrophils Percent Auto 49.8 % (50-75); Platelet Count 117 X10^3/uL (150-400); Red Blood Cell Count 3.03 X10^6/uL (4.0-5.2); Red Cell Distribution Width 16.6 % (11.6-14.8); White Blood Cell Count 4.9 X10^3/uL (4.5-11.0)
[2024-02-07 05:37] LABS: Parathyroid Hormone Int 93 pg/mL (15-65)
== END ==
LOC: LAB 11:31
PROVIDERS: PCP Nurse Practitioner; Referring Provider Student in an Organized Health Care Education/Training Program; Visit Provider Student in an Organized Health Care Education/Training Program
DX: D70.9 Neutropenia, unspecified (principal); N05.9 Unspecified nephritic syndrome with unspecified morphologic changes; D63.1 Anemia in chronic kidney disease; M10.00 Idiopathic gout, unspecified site; N25.81 Secondary hyperparathyroidism of renal origin
CPT/HCPCS: 83970; 85025

== ENCOUNTER → 2024-02-17 13:51 | Outpatient (CLI) | payer MEDICARE, OTHER, SELFPAY ==
[2024-02-17 14:42] LABS: Add Manual Diff / Slide Review NO; Basophils Absolute Auto 0 /uL (0-100); Basophils Percent Auto 0.9 % (0-2); Eosinophils Absolute Auto 200 /uL (0-450); Hematocrit 27.7 % (36-46); Hemoglobin 9.1 g/dL (12.0-16.0); Lymphocytes Absolute Auto 1800 /uL (1100-4500); Mean Corpuscular Hemoglobin 29.8 PG (26-34); Mean Corpuscular Volume 90.4 fL (80-100); Monocytes Absolute Auto 500 /uL (0-900); Monocytes Percent Auto 9.5 % (3-14); Neutrophils Absolute Auto 2200 /uL (1500-7000); Neutrophils Percent Auto 46.6 % (50-75); Platelet Count 121 X10^3/uL (150-400); Red Blood Cell Count 3.06 X10^6/uL (4.0-5.2); Red Cell Distribution Width 17.4 % (11.6-14.8); White Blood Cell Count 4.7 X10^3/uL (4.5-11.0)
[2024-02-17 14:49] LABS: Alanine Aminotransferase 12 IU/L (<35); Albumin 3.4 g/dL (3.5-5.0); Albumin Globulin Ratio 1.2 (1.0-2.8); Alkaline Phosphatase 39 U/L (38-126); Aspartate Aminotransferase 21 IU/L (14-36); BUN Creatinine Ratio 18.8 (6-22); Bilirubin Total 0.5 mg/dL (0.2-1.3); Blood Urea Nitrogen 36 mg/dL (7-17); Calcium 8.7 mg/dL (8.4-10.2); Carbon Dioxide 21 mmol/L (22-32); Chloride 112 mmol/L (98-107); Estimated Glomerular Filt Rate 25 mL/min (>60); Globulin 2.8 g/dL (1.7-4.1); Glucose 87 mg/dL (80-110); HEMOLYSIS 17 (0-50); Potassium 4.7 mmol/L (3.4-5.1); Sodium 138 mmol/L (137-145); Total Protein 6.2 g/dL (6.3-8.2)
[2024-02-17 14:51] LABS: HEMOLYSIS < 15 (0-50); Iron 76 ug/dL (37-170)
[2024-02-17 15:02] LABS: Percent Iron Saturation 38 % (15-50); Total Iron Binding Capacity 202 ug/dL (265-497); Transferrin 152 mg/dL (206-381)
[2024-02-17 15:22] LABS: Ferritin 249 ng/mL (11-264)
== END ==
PROVIDERS: PCP Nurse Practitioner; Referring Provider Nurse Practitioner; Visit Provider Nurse Practitioner
DX: N18.30 Chronic kidney disease, stage 3 unspecified (principal); D63.1 Anemia in chronic kidney disease
CPT/HCPCS: 36415; 80053; 82728; 83540; 83550; 85025

== ENCOUNTER → 2024-03-27 14:32 | Outpatient (CLI) | payer MEDICARE, OTHER, SELFPAY ==
[2024-03-27 15:36] LABS: Add Manual Diff / Slide Review NO; Basophils Absolute Auto 100 /uL (0-100); Basophils Percent Auto 1.1 % (0-2); Eosinophils Absolute Auto 300 /uL (0-450); Hematocrit 34.8 % (36-46); Hemoglobin 11.4 g/dL (12.0-16.0); Lymphocytes Absolute Auto 1900 /uL (1100-4500); Lymphocytes Percent Auto 34.8 % (25-40); Mean Corpuscular HGB Conc 32.7 % (30-36); Mean Corpuscular Hemoglobin 29.9 PG (26-34); Mean Corpuscular Volume 91.4 fL (80-100); Monocytes Absolute Auto 400 /uL (0-900); Monocytes Percent Auto 7.4 % (3-14); Neutrophils Absolute Auto 2800 /uL (1500-7000); Neutrophils Percent Auto 51.7 % (50-75); Platelet Count 39 X10^3/uL (150-400); Red Blood Cell Count 3.81 X10^6/uL (4.0-5.2); Red Cell Distribution Width 16.7 % (11.6-14.8); White Blood Cell Count 5.5 X10^3/uL (4.5-11.0)
[2024-03-27 15:57] LABS: HEMOLYSIS 17 (0-50); Iron 72 ug/dL (37-170)
[2024-03-27 16:00] LABS: Alanine Aminotransferase 12 IU/L (<35); Albumin 3.9 g/dL (3.5-5.0); Albumin Globulin Ratio 1.4 (1.0-2.8); Alkaline Phosphatase 46 U/L (38-126); Aspartate Aminotransferase 23 IU/L (14-36); Bilirubin Total 0.5 mg/dL (0.2-1.3); Blood Urea Nitrogen 38 mg/dL (7-17); Calcium 8.9 mg/dL (8.4-10.2); Carbon Dioxide 22 mmol/L (22-32); Chloride 112 mmol/L (98-107); Estimated Glomerular Filt Rate 26 mL/min (>60); Globulin 2.7 g/dL (1.7-4.1); Glucose 85 mg/dL (80-110); HEMOLYSIS 20 (0-50); Sodium 142 mmol/L (137-145); Total Protein 6.6 g/dL (6.3-8.2)
[2024-03-27 16:10] LABS: Percent Iron Saturation 35 % (15-50); Total Iron Binding Capacity 207 ug/dL (265-497); Transferrin 149 mg/dL (206-381)
[2024-03-27 16:33] LABS: Ferritin 170 ng/mL (11-264)
[2024-03-27 19:18] LABS: Platelet Estimate Decreased on smear; RBC Morphology Normal Morphology
== END ==
PROVIDERS: Family Provider Nurse Practitioner; PCP Nurse Practitioner; Referring Provider Nurse Practitioner; Visit Provider Nurse Practitioner
DX: N18.30 Chronic kidney disease, stage 3 unspecified (principal); D63.1 Anemia in chronic kidney disease
CPT/HCPCS: 36415; 80053; 82728; 83540; 83550; 85025

== ENCOUNTER → 2024-09-05 09:27 | Outpatient (CLI) | payer MEDICARE, OTHER, SELFPAY ==
--- NOTE | 2024-09-06 22:47 | DI.NM.S_ITS ---
DATE OF SERVICE: 09/05/2024 PHARMACOLOGICAL PERFUSION STUDY INDICATION: Chest pain with known history of non-critical coronary artery disease in November 2020 with about 40% ostial LAD, 20% distal left main, and 20% to 30% mid RCA, hypertension, hyperlipidemia, CKD, having chest pain. Perfusion study is being done for CAD risk stratification. RADIOPHARMACEUTICAL: 24.8 mCi technetium-99m Myoview IV was injected at stress and 24.7 millicuries technetium-99m Myoview IV was injected at rest. CARDIAC STRESS: The patient underwent IV Lexiscan perfusion study under the supervision of an attending staff. She received IV Lexiscan as per protocol. Resting blood pressure 170/104. Baseline rhythm was sinus with left axis with poor R-wave progression and some nonspecific ST-T changes. During stress, the patient developed 1 to 1.[address] depression in inferior leads and leads V4 to V6 with some PACs without any obvious AFib or ventricular tachycardia. Had minimal dyspnea. No chest discomfort. RAW DATA: There is increased subdiaphragmatic activity. GATED STUDY: Stress LV ejection fraction 86% without any obvious wall motion abnormalities. Resting LV ejection fraction 75%. Resting end- diastolic volume 80 mL. TID ratio 1.09, which is within normal limits. MYOCARDIAL PERFUSION SCAN: Stress supine and resting supine images were compared to each other. There appears to be small mild reversible ischemia of basal anterolateral wall. CONCLUSION: This is an abnormal myocardial perfusion study with small reversible ischemia of basal anterolateral wall. During Lexiscan perfusion, there is a ischemic EKG changes with 1 to 1.5 mm horizontal/downsloping ST depression in inferior leads and leads V4 to V6. The patient had a perfusion study in January,, at that time, there was no reversible ischemia. At that time, patient had anterior wall and distal anteroseptal defect which got resolved during prone images. In this study, I am not seeing any significant anterior wall and distal anteroseptum defect. We do not have any prone images, but the patient has mild reversible ischemia of the basal anterolateral wall. Overall ischemic burden is not significant. Summed stress score is 2. Summed difference score is 1. Visually LV function is preserved. Calculated stress LV ejection fraction 86%. Margaux Hinton - CARLOS/nelson/DOM doc#: [id number]/job#: [id number] dd: 09/06/2024 16:51:00 dt: 09/06/2024 22:16:00 DICTATING MD/COPIES TO: Bridgette Quinn MD COPIES MNE: ANUP;
== END ==
LOC: NUCM 09:28
PROVIDERS: Family Provider Nurse Practitioner; PCP Nurse Practitioner Family; Referring Provider Physician Assistant; Visit Provider Physician Assistant
DX: I25.10 Atherosclerotic heart disease of native coronary artery without angina pectoris (principal); R94.39 Abnormal result of other cardiovascular function study; R07.9 Chest pain, unspecified; I12.9 Hypertensive chronic kidney disease with stage 1 through stage 4 chronic kidney disease, or unspecified chronic kidney disease; N18.9 Chronic kidney disease, unspecified; E78.5 Hyperlipidemia, unspecified
CPT/HCPCS: 78452; 93017; A9502; J2785